=== PATIENT | female | born 1950 | race Caucasian/White ===

== ENCOUNTER → 2017-11-05 10:53 | Outpatient (CLI) | payer MEDICARE, OTHER, SELFPAY ==
[2017-11-05 11:46] LABS: Add Manual Diff / Slide Review NO; Basophils Percent Auto 1.2 % (0-2); Eosinophils Percent Auto 3.2 % (2-4); Hematocrit 40.9 % (36-46); Hemoglobin 13.9 g/dL (12.0-16.0); Lymphocytes Percent Auto 20.2 % (25-40); Mean Corpuscular Hemoglobin 31.8 PG (26-34); Mean Corpuscular Volume 93.7 fL (80-100); Monocytes Percent Auto 9.4 % (3-14); Neutrophils Absolute Auto 3800 /uL (3000-5900); Platelet Count 295 X10^3/uL (150-400); Red Blood Cell Count 4.37 X10^6/uL (4.0-5.2); Red Cell Distribution Width 12.5 % (11.6-14.8); White Blood Cell Count 5.7 X10^3/uL (4.5-11.0)
[2017-11-05 12:01] LABS: Alanine Aminotransferase 33 IU/L (9-52); Albumin 4.5 g/dL (3.5-5.0); Albumin Globulin Ratio 1.5 (1.0-2.8); Alkaline Phosphatase 54 U/L (38-126); Aspartate Aminotransferase 27 IU/L (14-36); BUN Creatinine Ratio 18.6 (6-22); Bilirubin Total 0.7 mg/dL (0.2-1.3); Blood Urea Nitrogen 13 mg/dL (7-17); Calcium 9.7 mg/dL (8.4-10.2); Carbon Dioxide 32 mmol/L (22-32); Chloride 99 mmol/L (98-107); Cholesterol 188 mg/dL (140-199); Estimated Glomerular Filt Rate > 60.0 mL/min (>60); Glucose 91 mg/dL (80-110); HDL Cholesterol 83 mg/dL (40-60); HEMOLYSIS < 15 (0-50); LDL Cholesterol Calculated 80 mg/dL (<100); Potassium 4.8 mmol/L (3.4-5.1); Sodium 138 mmol/L (137-145); Total Protein 7.5 g/dL (6.3-8.2); Triglycerides 127 mg/dL (35-150)
[2017-11-05 12:46] LABS: TSH w/ Reflex to FT4 1.71 uIU/mL (0.47-4.68)
== END ==
PROVIDERS: PCP Family Medicine; Visit Provider Family Medicine
DX: E78.5 Hyperlipidemia, unspecified (principal); E03.9 Hypothyroidism, unspecified; I10 Essential (primary) hypertension
CPT/HCPCS: 36415; 80053; 80061; 84443; 85025

== ENCOUNTER → 2018-08-17 15:46 | Outpatient (CLI) | payer MEDICARE, OTHER, SELFPAY ==
--- NOTE | 2018-08-17 | DI.MG.S_ITS ---
BILATERAL DIGITAL SCREENING MAMMOGRAM 3D/2D WITH CAD: 08/17/2018 CLINICAL: Routine screening. Comparison is made to exams dated: 06/02/2016 mammogram, 07/19/2017 mammogram, and 04/13/2014 mammogram - [facility]. The tissue of both breasts is heterogeneously dense. This may lower the sensitivity of mammography. Current study was also evaluated with a Computer Aided Detection (CAD) system. No significant masses, calcifications, or other findings are seen in either breast. There has been no significant interval change. IMPRESSION: NEGATIVE There is no mammographic evidence of malignancy. A 1 year screening mammogram is recommended. This exam was interpreted at Station ID: [id number]. NOTE: For mammograms, a report in lay terms will be sent to the patient. Approximately 15% of breast malignancies will not be visualized mammographically. In the management of a palpable breast mass, a negative mammogram must not discourage biopsy of a clinically suspicious lesion. Electronically Signed By: Ganesh murray/ilya:08/17/2018 18:48:09 letter sent: Normal Exam ACR BI-RADS Category 1: Negative 3341F
== END ==
PROVIDERS: PCP Family Medicine; Visit Provider Family Medicine
DX: Z12.31 Encounter for screening mammogram for malignant neoplasm of breast (principal)
CPT/HCPCS: 77063; 77067

== ENCOUNTER → 2018-10-05 15:39 | Outpatient (CLI) | payer MEDICARE, OTHER, SELFPAY ==
--- NOTE | 2018-10-05 15:42 | DI.MRI.S_ITS ---
PROCEDURE: MR KNEE RT WO CON INDICATIONS: Right knee pain x6 months TECHNIQUE: Noncontrast sagittal PD fast spin echo and T2 fast spin echo with fat saturation, sagittal 3-D FLASH with fat saturation; coronal T1 spin echo and PD fast spin echo with fat saturation, and axial PD fast spin echo with fat saturation through the knee. COMPARISON: None. FINDINGS: Image quality: Excellent. Menisci: Peripheral displacement of medial meniscus bowing medial collateral ligament is seen. Complex oblique tear involving body and posterior horn of medial meniscus is seen extending to superior articulating surface. There is no evidence of focal lateral meniscal tear. The meniscal root ligaments appear intact. Cruciate ligaments: Sprain/low to moderate grade intrasubstance partial-thickness tear involving anterior cruciate ligament is seen. No full-thickness ACL rupture. PCL is intact. Medial structures: There is moderate grade MCL sprain. The posterior oblique ligament, semimembranosus tendon insertions, oblique popliteal ligament, and meniscocapsular junction appear intact. Visualized portions of the pes anserinus tendons appear normal. No abnormal bursal fluid. Lateral structures: The lateral collateral ligament, long and short heads of the biceps femoris tendon appear intact. The popliteus tendon appears normal; the popliteofibular ligament appears intact. The posterosuperior and anteroinferior popliteomeniscal fascicles appear intact. The arcuate and fabellofibular ligaments appear intact, on either side of the lateral inferior geniculate artery. Iliotibial band appears normal. Anterior structures: The quadriceps and patellar tendons appear intact. Patellar alignment is normal. No femoral trochlear dysplasia or ventral trochlear prominence. No edema in the infrapatellar fat pad. Bones and cartilage: Mild to moderate tricompartmental osteoarthritis and chondromalacia is seen most prominent involving medial femoral tibial compartment. Mild edema involving medial femoral tibial compartment is seen likely represent changes related to osteoarthritis. No fracture or dislocation. Joint space: There is moderate amount of joint fluid. There is suggestion of a 9 mm intra-articular loose body in the anterior aspect of femoral tibial joint anterior to distal ACL insertion. No Durbin's cyst. Normal appearing synovial plicae are incidentally noted. IMPRESSION: 1. 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 Moderate amount of joint effusion. Suggestion of a 9 mm anterior intra-articular loose body. 2. Complex tear involving body and posterior horn of medial meniscus extending to superior articulating surface. No focal lateral meniscal tear. 3. Sprain/low to moderate grade intrasubstance partial-thickness tear involving anterior cruciate ligament. PCL is intact. Low to moderate grade MCL sprain. Dictated by: Nelson Bird M.D. on 10/05/2018 at 17:17 Approved by: Nelson Bird M.D. on 10/05/2018 at 17:32
== END ==
PROVIDERS: PCP Family Medicine; Visit Provider Nurse Practitioner
DX: M25.561 Pain in right knee (principal); M17.11 Unilateral primary osteoarthritis, right knee; M25.461 Effusion, right knee; S83.231A Complex tear of medial meniscus, current injury, right knee, initial encounter; S83.511A Sprain of anterior cruciate ligament of right knee, initial encounter; S83.411A Sprain of medial collateral ligament of right knee, initial encounter
CPT/HCPCS: 73721

== ENCOUNTER → 2019-01-16 11:11 | Outpatient (CLI) | payer MEDICARE, OTHER, SELFPAY ==
[2019-01-16 12:42] LABS: Thyroid Stimulating Hormone 3.59 uIU/mL (0.47-4.68)
== END ==
PROVIDERS: Family Provider Family Medicine; PCP Family Medicine; Visit Provider Family Medicine
DX: E03.9 Hypothyroidism, unspecified (principal)
CPT/HCPCS: 36415; 84443

== ENCOUNTER → 2019-02-09 09:51 | Outpatient (CLI) | payer MEDICARE, OTHER, SELFPAY ==
[2019-02-09 11:35] LABS: Alanine Aminotransferase 29 IU/L (<35); Albumin 4.5 g/dL (3.5-5.0); Albumin Globulin Ratio 1.6 (1.0-2.8); Alkaline Phosphatase 53 U/L (38-126); Aspartate Aminotransferase 31 IU/L (14-36); BUN Creatinine Ratio 21.4 (6-22); Bilirubin Total 0.7 mg/dL (0.2-1.3); Blood Urea Nitrogen 15 mg/dL (7-17); Calcium 9.7 mg/dL (8.4-10.2); Carbon Dioxide 30 mmol/L (22-32); Chloride 100 mmol/L (98-107); Cholesterol 186 mg/dL (140-199); Estimated Glomerular Filt Rate > 60.0 mL/min (>60); Globulin 2.8 g/dL (1.7-4.1); Glucose 84 mg/dL (80-110); HDL Cholesterol 84 mg/dL (40-60); HEMOLYSIS < 15 (0-50); LDL Cholesterol Calculated 88 mg/dL (<100); Potassium 4.9 mmol/L (3.4-5.1); Sodium 136 mmol/L (137-145); Total Protein 7.3 g/dL (6.3-8.2); Triglycerides 68 mg/dL (35-150)
[2019-02-09 13:01] LABS: Creatinine Urine Random 52.8 mg/dL
[2019-02-09 13:06] LABS: Microalbumi Creatinin Ratio Ur 11.3 ug/mg CR (<30); Microalbumin Urine Random < 0.6 mg/dL (0-1.6)
[2019-02-11 14:37] LABS: Fecal Immunochemical Test NOT DETECTED (NOT DETECTED)
== END ==
PROVIDERS: PCP Family Medicine; Visit Provider Family Medicine
DX: Z12.11 Encounter for screening for malignant neoplasm of colon (principal); I10 Essential (primary) hypertension; E78.5 Hyperlipidemia, unspecified
CPT/HCPCS: 36415; 80053; 80061; 82043; 82274; 82570

== ENCOUNTER → 2020-01-03 12:20 | Outpatient (CLI) | payer MEDICARE, OTHER, SELFPAY ==
--- NOTE | 2020-01-03 | DI.MG.S_ITS ---
BILATERAL DIGITAL SCREENING MAMMOGRAM 3D/2D WITH CAD: 01/03/2020 CLINICAL: Routine screening. Comparison is made to exams dated: 08/17/2018 mammogram, 07/19/2017 mammogram, and 06/02/2016 mammogram - [facility]. There are scattered fibroglandular elements in both breasts. Current study was also evaluated with a Computer Aided Detection (CAD) system. No significant masses, calcifications, or other findings are seen in either breast. There has been no significant interval change. IMPRESSION: NEGATIVE There is no mammographic evidence of malignancy. A 1 year screening mammogram is recommended. This exam was interpreted at Station ID: [id number]. NOTE: For mammograms, a report in lay terms will be sent to the patient. Approximately 15% of breast malignancies will not be visualized mammographically. In the management of a palpable breast mass, a negative mammogram must not discourage biopsy of a clinically suspicious lesion. Electronically Signed By: Daryl ulloa/ilya:01/03/2020 14:15:37 letter sent: Normal Exam ACR BI-RADS Category 1: Negative 3341F
== END ==
PROVIDERS: PCP Family Medicine; Referring Provider Family Medicine; Visit Provider Family Medicine
DX: Z12.31 Encounter for screening mammogram for malignant neoplasm of breast (principal)
CPT/HCPCS: 77063; 77067

== ENCOUNTER → 2020-02-13 08:06 | Outpatient (CLI) | payer MEDICARE, OTHER, SELFPAY ==
[2020-02-13 09:48] LABS: TSH w/ Reflex to FT4 4.38 uIU/mL (0.47-4.68)
== END ==
PROVIDERS: PCP Family Medicine; Referring Provider Family Medicine; Visit Provider Family Medicine
DX: E03.9 Hypothyroidism, unspecified (principal)
CPT/HCPCS: 36415; 84443

== ENCOUNTER → 2020-03-07 13:02 | Outpatient (CLI) | payer MEDICARE, OTHER, SELFPAY ==
--- NOTE | 2020-03-07 13:05 | DI.RAD.S_ITS ---
PROCEDURE: XR FINGER LT MIN 2V INDICATIONS: significant nodular growth 5th finger PIP joint TECHNIQUE: AP hand, 2 views of the 5th finger(s) acquired. COMPARISON: None. FINDINGS: Bones: No fractures or dislocations. No suspicious bony lesions. Severe degeneration of the proximal 5th interphalangeal joint. Periarticular erosion and soft tissue swelling are present at the 5th proximal interphalangeal joint. There is also severe 1st carpometacarpal joint and 1st interphalangeal joint degeneration, and [id number] degeneration of multiple interphalangeal joints. Soft tissues: No suspicious soft tissue calcifications. IMPRESSION: 1. Bony erosion and periarticular soft tissue swelling at the 5th proximal interphalangeal joint suggesting inflammatory arthritis such as erosive OA. Dictated by: Mark Fernando M.D. on 03/07/2020 at 15:02 Approved by: Mark Fernando M.D. on 03/07/2020 at 15:05
== END ==
PROVIDERS: PCP Family Medicine; Referring Provider Family Medicine; Visit Provider Family Medicine
DX: M18.12 Unilateral primary osteoarthritis of first carpometacarpal joint, left hand (principal); M19.042 Primary osteoarthritis, left hand; M25.649 Stiffness of unspecified hand, not elsewhere classified; M79.89 Other specified soft tissue disorders; M85.842 Other specified disorders of bone density and structure, left hand
CPT/HCPCS: 73140

== ENCOUNTER → 2020-03-13 12:30 | Outpatient (CLI) | payer MEDICARE, OTHER, SELFPAY ==
[2020-03-13 13:43] LABS: C-Reactive Protein Quant < 0.5 mg/dL (<1.0); Rheumatoid Factor < 8.6 IU/mL (<12.0)
[2020-03-13 13:55] LABS: Erythrocyte Sedimentation Rate 10 MM/HR (0-20)
== END ==
PROVIDERS: PCP Family Medicine; Referring Provider Family Medicine; Visit Provider Family Medicine
DX: M15.4 Erosive (osteo)arthritis (principal)
CPT/HCPCS: 36415; 85651; 86140; 86430

== ENCOUNTER → 2021-02-01 13:23 | Outpatient (CLI) | payer MEDICARE, OTHER, SELFPAY ==
--- NOTE | 2021-02-01 | DI.MG.S_ITS ---
BILATERAL DIGITAL SCREENING MAMMOGRAM 3D/2D WITH CAD: 02/01/2021 CLINICAL: Routine screening. Comparison is made to exams dated: 01/03/2020 mammogram, 08/17/2018 mammogram, 07/19/2017 mammogram, and 06/02/2016 mammogram - [facility]. There are scattered fibroglandular elements in both breasts. Current study was also evaluated with a Computer Aided Detection (CAD) system. No significant masses, calcifications, or other findings are seen in either breast. There has been no significant interval change. IMPRESSION: NEGATIVE There is no mammographic evidence of malignancy. A 1 year screening mammogram is recommended. This exam was interpreted at Station ID: [id number]. NOTE: For mammograms, a report in lay terms will be sent to the patient. Approximately 15% of breast malignancies will not be visualized mammographically. In the management of a palpable breast mass, a negative mammogram must not discourage biopsy of a clinically suspicious lesion. Electronically Signed By: Tata cha/ilya:02/03/2021 10:58:51 letter sent: Normal Exam ACR BI-RADS Category 1: Negative 3341F
== END ==
PROVIDERS: PCP Family Medicine; Referring Provider Family Medicine; Visit Provider Family Medicine
DX: Z12.31 Encounter for screening mammogram for malignant neoplasm of breast (principal)
CPT/HCPCS: 77063; 77067

== ENCOUNTER → 2021-06-10 12:54 | Outpatient (CLI) | payer MEDICARE, OTHER, SELFPAY ==
[2021-06-10 14:06] LABS: Add Manual Diff / Slide Review NO; Basophils Absolute Auto 100 /uL (0-100); Eosinophils Absolute Auto 200 /uL (0-450); Hemoglobin 13.6 g/dL (12.0-16.0); Lymphocytes Absolute Auto 1100 /uL (1100-4500); Mean Corpuscular Hemoglobin 31.5 PG (26-34); Mean Corpuscular Volume 92.6 fL (80-100); Monocytes Absolute Auto 600 /uL (0-900); Monocytes Percent Auto 10.7 % (3-14); Neutrophils Absolute Auto 3400 /uL (1500-7000); Neutrophils Percent Auto 63.3 % (50-75); Platelet Count 262 X10^3/uL (150-400); Red Blood Cell Count 4.32 X10^6/uL (4.0-5.2); Red Cell Distribution Width 13.6 % (11.6-14.8); White Blood Cell Count 5.3 X10^3/uL (4.5-11.0)
[2021-06-10 14:40] LABS: Alanine Aminotransferase 23 IU/L (<35); Albumin 4.7 g/dL (3.5-5.0); Alkaline Phosphatase 54 U/L (38-126); Aspartate Aminotransferase 27 IU/L (14-36); BUN Creatinine Ratio 16.5 (6-22); Bilirubin Total 0.6 mg/dL (0.2-1.3); Blood Urea Nitrogen 13 mg/dL (7-17); Calcium 9.8 mg/dL (8.4-10.2); Carbon Dioxide 28 mmol/L (22-32); Chloride 101 mmol/L (98-107); Cholesterol 205 mg/dL (140-199); Estimated Glomerular Filt Rate > 60.0 mL/min (>60); Globulin 2.4 g/dL (1.7-4.1); Glucose 87 mg/dL (80-110); HDL Cholesterol 110 mg/dL (40-60); HEMOLYSIS < 15 (0-50); LDL Cholesterol Calculated 78 mg/dL (<100); Potassium 4.5 mmol/L (3.4-5.1); Sodium 136 mmol/L (137-145); Total Protein 7.1 g/dL (6.3-8.2); Triglycerides 86 mg/dL (35-150)
[2021-06-10 15:09] LABS: Thyroid Stimulating Hormone 2.14 uIU/mL (0.47-4.68)
[2021-06-10 15:34] LABS: Creatinine Urine Random 33.9 mg/dL
[2021-06-10 15:39] LABS: Microalbumin Urine Random < 0.6 mg/dL (0-1.6)
== END ==
PROVIDERS: PCP Family Medicine; Referring Provider Family Medicine; Visit Provider Family Medicine
DX: E03.9 Hypothyroidism, unspecified (principal); E78.5 Hyperlipidemia, unspecified; E78.2 Mixed hyperlipidemia; I10 Essential (primary) hypertension
CPT/HCPCS: 36415; 80053; 80061; 82043; 82570; 84443; 85025

== ENCOUNTER → 2021-06-11 14:49 | Outpatient (CLI) | payer MEDICARE, OTHER, SELFPAY ==
[2021-06-12 14:02] LABS: Fecal Immunochemical Test Negative (Negative)
== END ==
PROVIDERS: PCP Family Medicine; Referring Provider Family Medicine; Visit Provider Family Medicine
DX: Z12.11 Encounter for screening for malignant neoplasm of colon (principal)
CPT/HCPCS: 82274

== ENCOUNTER → 2022-02-03 13:51 | Outpatient (CLI) | payer MEDICARE, OTHER, SELFPAY ==
--- NOTE | 2022-02-03 | DI.MG.S_ITS ---
BILATERAL DIGITAL SCREENING MAMMOGRAM 3D/2D WITH CAD: 02/03/2022 CLINICAL: Routine screening. Comparison is made to exams dated: 02/01/2021 mammogram, 01/03/2020 mammogram, and 08/17/2018 mammogram - [facility]. There are scattered areas of fibroglandular density in both breasts (category b / 25%-50% glandular tissue). Current study was also evaluated with a Computer Aided Detection (CAD) system. No significant masses, calcifications, or other findings are seen in either breast. There has been no significant interval change. IMPRESSION: NEGATIVE There is no mammographic evidence of malignancy. A 1 year screening mammogram is recommended. Based on the Tyrer Cuzick model (a risk assessment model) the patient's lifetime risk is 5.9% and her 10 year risk is 4.8%. According to the ACR, ACS, and NCCN guidelines, an annual breast MRI exam along with mammogram is recommended if the patient's lifetime risk is 20% or greater. This exam was interpreted at Station ID: [id number]. NOTE: For mammograms, a report in lay terms will be sent to the patient. Approximately 15% of breast malignancies will not be visualized mammographically. In the management of a palpable breast mass, a negative mammogram must not discourage biopsy of a clinically suspicious lesion. Electronically Signed By: Tata cha/ilya:02/03/2022 16:44:52 letter sent: Normal Exam ACR BI-RADS Category 1: Negative 3341F
== END ==
PROVIDERS: PCP Family Medicine; Referring Provider Family Medicine; Visit Provider Family Medicine
DX: Z12.31 Encounter for screening mammogram for malignant neoplasm of breast (principal)
CPT/HCPCS: 77063; 77067

== ENCOUNTER → 2022-06-06 09:48 | Outpatient (CLI) | payer MEDICARE, OTHER, SELFPAY ==
[2022-06-06 10:20] LABS: Add Manual Diff / Slide Review NO; Basophils Absolute Auto 100 /uL (0-100); Basophils Percent Auto 1.1 % (0-2); Eosinophils Absolute Auto 200 /uL (0-450); Eosinophils Percent Auto 3.9 % (2-4); Hematocrit 40.4 % (36-46); Hemoglobin 13.7 g/dL (12.0-16.0); Lymphocytes Absolute Auto 1000 /uL (1100-4500); Lymphocytes Percent Auto 19.7 % (25-40); Mean Corpuscular Hemoglobin 31.1 PG (26-34); Mean Corpuscular Volume 91.4 fL (80-100); Monocytes Absolute Auto 600 /uL (0-900); Neutrophils Absolute Auto 3400 /uL (1500-7000); Neutrophils Percent Auto 64.3 % (50-75); Platelet Count 266 X10^3/uL (150-400); Red Blood Cell Count 4.43 X10^6/uL (4.0-5.2); Red Cell Distribution Width 12.5 % (11.6-14.8); White Blood Cell Count 5.3 X10^3/uL (4.5-11.0)
[2022-06-06 10:34] LABS: Alanine Aminotransferase 24 IU/L (<35); Albumin 4.5 g/dL (3.5-5.0); Albumin Globulin Ratio 1.6 (1.0-2.8); Alkaline Phosphatase 63 U/L (38-126); Aspartate Aminotransferase 25 IU/L (14-36); BUN Creatinine Ratio 19.5 (6-22); Bilirubin Total 0.5 mg/dL (0.2-1.3); Blood Urea Nitrogen 15 mg/dL (7-17); Carbon Dioxide 28 mmol/L (22-32); Chloride 100 mmol/L (98-107); Cholesterol 190 mg/dL (140-199); Estimated Glomerular Filt Rate > 60 mL/min (>60); Globulin 2.8 g/dL (1.7-4.1); Glucose 89 mg/dL (80-110); HDL Cholesterol 102 mg/dL (40-60); HEMOLYSIS < 15 (0-50); LDL Cholesterol Calculated 73 mg/dL (<100); Potassium 4.5 mmol/L (3.4-5.1); Sodium 136 mmol/L (137-145); Total Protein 7.3 g/dL (6.3-8.2); Triglycerides 77 mg/dL (35-150)
[2022-06-06 11:13] LABS: TSH w/ Reflex to FT4 1.48 uIU/mL (0.47-4.68)
[2022-06-06 11:15] LABS: Creatinine Urine Random 48.9 mg/dL
[2022-06-06 11:21] LABS: Microalbumin Urine Random < 0.6 mg/dL (0-1.6)
== END ==
PROVIDERS: PCP Family Medicine; Referring Provider Family Medicine; Visit Provider Family Medicine
DX: E03.9 Hypothyroidism, unspecified (principal); E78.5 Hyperlipidemia, unspecified; I10 Essential (primary) hypertension
CPT/HCPCS: 36415; 80053; 80061; 82043; 82570; 84443; 85025

== ENCOUNTER → 2022-06-13 11:41 | Outpatient (CLI) | payer MEDICARE, OTHER, SELFPAY ==
[2022-06-16 17:38] LABS: Fecal Immunochemical Test Negative (Negative)
== END ==
PROVIDERS: PCP Family Medicine; Referring Provider Family Medicine; Visit Provider Family Medicine
DX: Z12.11 Encounter for screening for malignant neoplasm of colon (principal)
CPT/HCPCS: 82274

== ENCOUNTER → 2023-03-23 14:48 | Outpatient (CLI) | payer MEDICARE, OTHER, SELFPAY ==
--- NOTE | 2023-03-23 14:50 | DI.MG.S_ITS ---
BILATERAL DIGITAL SCREENING MAMMOGRAM 3D/2D WITH CAD: 03/23/2023 CLINICAL: Routine screening. Family history of breast cancer. Comparison is made to exams dated: 02/03/2022 mammogram, 02/01/2021 mammogram, and 01/03/2020 mammogram - [facility]. There are scattered areas of fibroglandular density in both breasts (category b / 25%-50% glandular tissue). Current study was also evaluated with a Computer Aided Detection (CAD) system. No significant masses, calcifications, or other findings are seen in either breast. There has been no significant interval change. IMPRESSION: NEGATIVE There is no mammographic evidence of malignancy. A 1 year screening mammogram is recommended. Based on the Tyrer Cuzick model (a risk assessment model) the patient's lifetime risk is 5.5% and her 10 year risk is 5.0%. According to the ACR, ACS, and NCCN guidelines, an annual breast MRI exam along with mammogram is recommended if the patient's lifetime risk is 20% or greater. This exam was interpreted at Station ID: [id number]. NOTE: For mammograms, a report in lay terms will be sent to the patient. Approximately 15% of breast malignancies will not be visualized mammographically. In the management of a palpable breast mass, a negative mammogram must not discourage biopsy of a clinically suspicious lesion. Electronically Signed By: Laura farrell/ilya:03/24/2023 17:03:17 letter sent: Normal Exam ACR BI-RADS Category 1: Negative 3341F
== END ==
PROVIDERS: PCP Family Medicine; Referring Provider Family Medicine; Visit Provider Family Medicine
DX: Z12.31 Encounter for screening mammogram for malignant neoplasm of breast (principal); Z80.3 Family history of malignant neoplasm of breast
CPT/HCPCS: 77063; 77067

== ENCOUNTER → 2023-06-01 14:18 | Outpatient (CLI) | payer MEDICARE, OTHER, SELFPAY ==
[2023-06-02 07:00] LABS: Fecal Immunochemical Test Negative (Negative)
== END ==
LOC: LAB 14:19
PROVIDERS: PCP Family Medicine; Referring Provider Family Medicine; Visit Provider Family Medicine
DX: Z12.11 Encounter for screening for malignant neoplasm of colon (principal)
CPT/HCPCS: 82274

== ENCOUNTER → 2023-06-16 10:47 | Outpatient (CLI) | payer MEDICARE, OTHER, SELFPAY ==
--- NOTE | 2023-06-16 10:48 | DI.RAD.S_ITS ---
PROCEDURE: XR KNEE LT 3V INDICATIONS: left knee pain TECHNIQUE: 3 views of the knee were acquired. COMPARISON: None. FINDINGS: Bones: No fractures or dislocations. No suspicious bony lesions. Moderate lateral compartment joint space narrowing and mild lateral patellofemoral compartment joint space narrowing and osteophytosis. Soft tissues: No joint effusion. No suspicious soft tissue calcifications. IMPRESSION: No acute bony abnormality or significant effusion. Moderate lateral femorotibial and mild patellofemoral compartment osteoarthrosis Approved by: Helen Fountain M.D.,Ph.D. on 06/16/2023 at 14:04
[2023-06-16 14:42] LABS: Thyroid Stimulating Hormone 1.26 uIU/mL (0.47-4.68)
[2023-06-16 16:00] LABS: Alanine Aminotransferase 28 IU/L (<35); Albumin 4.3 g/dL (3.5-5.0); Albumin Globulin Ratio 1.7 (1.0-2.8); Alkaline Phosphatase 59 U/L (38-126); Aspartate Aminotransferase 27 IU/L (14-36); BUN Creatinine Ratio 16.2 (6-22); Bilirubin Total 0.6 mg/dL (0.2-1.3); Blood Urea Nitrogen 11 mg/dL (7-17); Calcium 9.8 mg/dL (8.4-10.2); Carbon Dioxide 28 mmol/L (22-32); Chloride 102 mmol/L (98-107); Cholesterol 174 mg/dL (140-199); Estimated Glomerular Filt Rate > 60 mL/min (>60); Globulin 2.5 g/dL (1.7-4.1); Glucose 80 mg/dL (80-110); HDL Cholesterol 97 mg/dL (40-60); HEMOLYSIS < 15 (0-50); LDL Cholesterol Calculated 62 mg/dL (<100); Potassium 4.6 mmol/L (3.4-5.1); Sodium 135 mmol/L (137-145); Total Protein 6.8 g/dL (6.3-8.2); Triglycerides 73 mg/dL (35-150)
[2023-06-16 16:47] LABS: Creatinine Urine Random 21.9 mg/dL
[2023-06-16 16:53] LABS: Microalbumin Urine Random < 0.6 mg/dL (0-1.6)
[2023-06-17 22:58] LABS: Hep C Virus Ab w/Reflex Quant NEGATIVE s/c (NEGATIVE)
== END ==
PROVIDERS: PCP Family Medicine; Referring Provider Family Medicine; Visit Provider Family Medicine
DX: M17.12 Unilateral primary osteoarthritis, left knee (principal); M25.562 Pain in left knee; I10 Essential (primary) hypertension; E03.9 Hypothyroidism, unspecified; Z13.9 Encounter for screening, unspecified
CPT/HCPCS: 36415; 73562; 80053; 80061; 82043; 82570; 84443; 86803

== ENCOUNTER → 2024-04-06 10:55 | Outpatient (CLI) | payer MEDICARE, OTHER, SELFPAY ==
--- NOTE | 2024-04-06 10:56 | DI.MG.S_ITS ---
BILATERAL DIGITAL SCREENING MAMMOGRAM 3D/2D WITH CAD: 04/06/2024 CLINICAL: Routine screening. Comparison is made to exams dated: 03/23/2023 mammogram, 02/03/2022 mammogram, 02/01/2021 mammogram, and 01/03/2020 mammogram - [facility]. There are scattered areas of fibroglandular density (category b / 25%-50% glandular tissue). Current study was also evaluated with a Computer Aided Detection (CAD) system. No significant masses, calcifications, or other findings are seen in either breast. There has been no significant interval change. IMPRESSION: NEGATIVE There is no mammographic evidence of malignancy. A 1 year screening mammogram is recommended. Based on the Tyrer Cuzick model (a risk assessment model) the patient's lifetime risk is 5.1% and her 10 year risk is 5.1%. According to the ACR, ACS, and NCCN guidelines, an annual breast MRI exam along with mammogram is recommended if the patient's lifetime risk is 20% or greater. This exam was interpreted at Station ID: [id number]. NOTE: For mammograms, a report in lay terms will be sent to the patient. Approximately 15% of breast malignancies will not be visualized mammographically. In the management of a palpable breast mass, a negative mammogram must not discourage biopsy of a clinically suspicious lesion. Electronically Signed By: Otilio rust/ilya:04/06/2024 18:03:46 letter sent: Normal Exam ACR BI-RADS Category 1: Negative
== END ==
LOC: MAMMO 10:55
PROVIDERS: PCP Family Medicine; Referring Provider Family Medicine; Visit Provider Family Medicine
DX: Z12.31 Encounter for screening mammogram for malignant neoplasm of breast (principal)
CPT/HCPCS: 77063; 77067

== ENCOUNTER → 2024-05-05 12:24 | Outpatient (CLI) | payer MEDICARE, OTHER, SELFPAY ==
[2024-05-05 15:27] LABS: Alanine Aminotransferase 27 IU/L (<35); Albumin 4.7 g/dL (3.5-5.0); Albumin Globulin Ratio 1.9 (1.0-2.8); Alkaline Phosphatase 64 U/L (38-126); Aspartate Aminotransferase 30 IU/L (14-36); BUN Creatinine Ratio 12.9 (6-22); Bilirubin Total 0.6 mg/dL (0.2-1.3); Blood Urea Nitrogen 11 mg/dL (7-17); Calcium 10.1 mg/dL (8.4-10.2); Carbon Dioxide 28 mmol/L (22-32); Chloride 98 mmol/L (98-107); Cholesterol 210 mg/dL (140-199); Estimated Glomerular Filt Rate > 60 mL/min (>60); Globulin 2.5 g/dL (1.7-4.1); Glucose 82 mg/dL (80-110); HDL Cholesterol 104 mg/dL (40-60); HEMOLYSIS < 15 (0-50); LDL Cholesterol Calculated 82 mg/dL (<100); Potassium 5.3 mmol/L (3.4-5.1); Sodium 134 mmol/L (137-145); Total Protein 7.2 g/dL (6.3-8.2); Triglycerides 120 mg/dL (35-150)
[2024-05-05 19:46] LABS: Creatinine Urine Random 23.54 mg/dL
[2024-05-05 19:55] LABS: Microalbumin Urine Random < 0.6 mg/dL (0-1.6)
== END ==
PROVIDERS: PCP Family Medicine; Referring Provider Family Medicine; Visit Provider Family Medicine
DX: E78.2 Mixed hyperlipidemia (principal); I10 Essential (primary) hypertension
CPT/HCPCS: 36415; 80053; 80061; 82043; 82570

== ENCOUNTER → 2024-06-09 11:27 | Outpatient (CLI) | payer MEDICARE, OTHER, SELFPAY ==
[2024-06-09 12:45] LABS: BUN Creatinine Ratio 15.2 (6-22); Blood Urea Nitrogen 12 mg/dL (7-17); Calcium 9.9 mg/dL (8.4-10.2); Carbon Dioxide 27 mmol/L (22-32); Chloride 95 mmol/L (98-107); Estimated Glomerular Filt Rate > 60 mL/min (>60); Glucose 86 mg/dL (80-110); HEMOLYSIS < 15 (0-50); Potassium 4.4 mmol/L (3.4-5.1); Sodium 131 mmol/L (137-145)
== END ==
PROVIDERS: PCP Family Medicine; Referring Provider Family Medicine; Visit Provider Family Medicine
DX: E87.5 Hyperkalemia (principal)
CPT/HCPCS: 36415; 80048

== ENCOUNTER → 2024-06-24 13:22 | Outpatient (CLI) | payer MEDICARE, OTHER, SELFPAY ==
[2024-06-26 12:40] LABS: Fecal Immunochemical Test Negative (Negative)
== END ==
PROVIDERS: PCP Family Medicine; Referring Provider Family Medicine; Visit Provider Family Medicine
DX: Z12.11 Encounter for screening for malignant neoplasm of colon (principal)
CPT/HCPCS: 82274

== ENCOUNTER 2024-09-19 13:00 | Outpatient (RCR) | payer MEDICARE, OTHER, SELFPAY ==
--- NOTE | 2024-06-29 15:14 | PT.OIE ---
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) Foot pain (2012) Fracture, foot (03/2004) Fractures (08/06/11) GERD (gastroesophageal reflux disease) Graves' disease (1993) Hayfever (1949) Hypertension (09/24/03) Hyperthyroidism (1993) IBS (irritable bowel syndrome) Measles Mumps Osteoarthritis (2005) Osteopenia (10/28/06) Past Surgical History (Last Updated 01/25/18 @ 12:01 by Christianne Artis) Anesthesia History of foot surgery (02/17/13) Status post tonsillectomy and adenoidectomy (1951) Visit Care Team Role Provider Type Keila Moreno MD Attending Provider Physician Family Provider Primary Care Provider Referring Provider Specialty: [facility] Address: [address] [place] [address] Email: [email or web address] Physical Therapy Initial Evaluation PT-OP-A Visit Information Start: 06/28/24 18:59 Freq: Status: Active Protocol: Document 06/29/24 13:03 [facility] (Rec: 06/29/24 15:00 [facility] [id number]) Out-Patient Physical Therapy Visit Information Visit Information Visit Type Initial Evaluation Visit Start Time 13:03 Visit Stop Time 13:48 Visit Number 1 Number of COMMERCIAL ACCOUNT OFFICER Visits 0 PT-OP-B Current Condition Start: 06/28/24 18:59 Freq: Status: Active Protocol: Document 06/29/24 13:03 [facility] (Rec: 06/29/24 15:00 [facility] [id number]) Current Condition History of Current Condition Onset Date about 1 year Current Complaints L knee pain History of Current Condition Pt loves to walk and typically walks 3 miles prior to this. mostly flat. It has been 2-3 months since he did. she has an orhtotic that helped but didn't fully help. She has tried hills and that really hurts. She tries to stay active by parking further away but no regimented walks. She can't do hills right now. When first stand up, after sitting for a while then L knee is uncomfortable. 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 has osteoporosis. Has a lot of metal still in L ankle and bones healed well and she rarely had pain (occ sharp). Her L big toe has very limited movement. 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 typically does yoga but stopped because so many exercises that weren't comfortable on L foot. Does functional fitness 2x/week for 1 hour but hasn't gone for the past 2-3 weeks because of her L knee. UP stairs is okay but coming down is hard. no specific onset. [place] did [place] in [place] for her elephant seal protection event along w/longer distance and it flared it up. She did this a couple days and had to stop because she was hurting. Pt notes occasionally has B hip pain too Treatment Goals Patient/Caregiver Goals gets some exercises to help pain, return to walking , return to exercise class, yoga PT-OP-C Subjective Start: 06/28/24 18:59 Freq: Status: Active Protocol: Document 06/29/24 13:03 [facility] (Rec: 06/29/24 15:00 [facility] [id number]) OP-PT Pain Assessment Location L knee Pain Location Details distal thigh to proximal tibia (all around knee) Frequency Frequent Other Pain Aggravating Factors stairs down, walking hills, standing up after sit extended , at night Other Pain Alleviating Factors tylenol PT-OP-G Mobility & Gait Start: 06/28/24 18:59 Freq: Status: Active Protocol: Document 06/29/24 13:03 [facility] (Rec: 06/29/24 15:00 [facility] [id number]) OP Gait Assessment Comments Gait Comments harder impact on LLE, lat lean over LLE ,dec LLE push off PT-OP-J Posture/Palpation/Skin Start: 06/28/24 18:59 Freq: Status: Active Protocol: Document 06/29/24 13:03 [facility] (Rec: 06/29/24 15:00 [facility] [id number]) Posture Evaluation Comments Posture Comments IR L femur and ER tibia, R iliac crest higher and R greater trochanter higher PT-OP-K Range of Motion Start: 06/28/24 18:59 Freq: Status: Active Protocol: Document 06/29/24 13:03 [facility] (Rec: 06/29/24 15:00 [facility] [id number]) Knee Goniometric Range of Motion Knee Left Flexion Active (degrees) 128 Extension Active (degrees) 0 PT-OP-L Special Tests Start: 06/28/24 18:59 Freq: Status: Active Protocol: Document 06/29/24 13:03 [facility] (Rec: 06/29/24 15:00 [facility] [id number]) Special Tests Knee Special Tests ligamentous Comments ACL, PCL, LCL, MCL neg jt jackson Comments tender lat Ramiro Test Comments neg PT-OP-M Strength Start: 06/28/24 18:59 Freq: Status: Active Protocol: Document 06/29/24 13:03 [facility] (Rec: 06/29/24 15:00 [facility] [id number]) Hip Strength Hip Manual Muscle Testing Right Flexion (L2) 3+ Fair+ Extension (S1) 3+ Fair+ Abduction 4- Good- Adduction 4- Good- External Rotation 3+ Fair+ Internal Rotation 4+ Good+ Left Flexion (L2) 3+ Fair+ Extension (S1) 3+ Fair+ Abduction 3+ Fair+ Adduction 3+ Fair+ External Rotation 3+ Fair+ Internal Rotation 4- Good- Knee Strength Knee Manual Muscle Testing Right Flexion (S2) 5 Normal Extension (L3) 5 Normal Left Flexion (S2) 4 Good Extension (L3) 4 Good Ankle/Foot Strength Ankle and Foot Manual Muscle Testing Right Dorsiflexion (L4) 5 Normal Plantarflexion (S1) 5 Normal Left Dorsiflexion (L4) 4+ Good+ Plantarflexion (S1) 4+ Good+ PT-OP-Q Treatments Start: 06/28/24 18:59 Freq: Status: Active Protocol: Document 06/29/24 13:03 [facility] (Rec: 06/29/24 15:00 [facility] [id number]) Self-Care/Home Management Treatment Education Other Education 8 min: edu that leg length and hip and core weakness may be contributing to pain in knee also. Edu to ice as needed. Pay attention and stop exercises in class that cause pain. PT-OP-T Assessment and Plan Start: 06/28/24 18:59 Freq: Status: Active Protocol: Document 06/29/24 13:03 [facility] (Rec: 06/29/24 15:00 [facility] [id number]) Physical Therapy Assessment Rehab Potential Rehabilitation Potential Good Evaluation Complexity Number of Personal Factors/Comorbidities 3 or More Number of Body Systems Impaired 4 or More Clinical Presentation at Evaluation Evolving Impairments Impairments Activity Tolerance,Balance, Functional Activities, Functional Mobility,Gait,Pain, Posture,ROM,Soft Tissue Mobility,Strength,Transfers Goals strength Short Term Goal (STG) Pt will be indep w/HEP STG Duration 07/29 Prison Goal (LTG) Pt will score at least 4+/5 on all BLE MMT to show improved stability and mobility. LTG Duration 09/07 walking Short Term Goal (STG) Pt will be able to return to 1 mile walks at least every other day STG Duration 07/29 Prison Goal (LTG) Pt will be able to return to 3 mile walks at least every other day LTG Duration 09/07 activities Geothermal Operations Engineer Goal (LTG) Pt will be able to walk hills and be able to go down stairs reciprocally w/o inc pain greater than 1/10. LTG Duration 09/07 Assessment Summary Assessment Pt presents w/L knee pain that is limiting her ability to stay as mobile as she'd like ( do yoga, exercise class, and walk). She has pain down stairs and w/hills and has mild to moderate OA. She does have weakness of L>R LE and is overall limited with her balance and stability likely related to her knee pain. She would benefit from skilled PT to work on strength, mobility and decreasing her pain. Physical Therapy Plan Frequency and Duration Frequency of Treatment 2x/Week Duration of treatment (weeks) 10 Plan of Care Start Date 06/29/24 Plan of Care End Date 09/07/24 Therapeutic Interventions Therapeutic Interventions Balance Training,Gait Training ,Home Exercise Program,Joint Mobilizations,Manual Therapy, Neuromuscular Re-education, Patient/Caregiver Education, Self-Care/Home Management,Soft Tissue Mobilization,Taping, Therapeutic Activities, Therapeutic Exercises Modalities Cold Pack/Ice Massage,Electric Stimulation,Hot Packs, Infrared Therapy,Ultrasound Next Visit Focus/Plan Next Note Type Treatment Note Next Visit Plan sidesteps, sit to stands or squats, bridge, balance exercises, manual for knee tracking.
--- NOTE | 2024-06-29 15:15 | PT.OPPOC ---
Physical, Occupational & Speech Therapy At [facility] Current Diagnoses Pain in left knee (06/29/24) Visit Care Team Role Provider Type Keila Moreno MD Attending Provider Physician Family Provider Primary Care Provider Referring Provider Specialty: Family Practice Address: [address] [place] [address], [facility] [place], [address] Email: [email or web address] Plan Of Care PT-OP-B Current Condition Start: 06/28/24 18:59 Freq: Status: Active Protocol: Document 06/29/24 13:03 [facility] (Rec: 06/29/24 15:00 [facility] [id number]) Current Condition History of Current Condition Onset Date about 1 year Current Complaints L knee pain History of Current Condition Pt loves to walk and typically walks 3 miles prior to this. mostly flat. It has been 2-3 months since he did. she has an orhtotic that helped but didn't fully help. She has tried hills and that really hurts. She tries to stay active by parking further away but no regimented walks. She can't do hills right now. When first stand up, after sitting for a while then L knee is uncomfortable. 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 has osteoporosis. Has a lot of metal still in L ankle and bones healed well and she rarely had pain (occ sharp). Her L big toe has very limited movement. 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 typically does yoga but stopped because so many exercises that weren't comfortable on L foot. Does functional fitness 2x/week for 1 hour but hasn't gone for the past 2-3 weeks because of her L knee. UP stairs is okay but coming down is hard. no specific onset. She [place] in [place] for her elephant seal protection event along w/longer distance and it flared it up. She did this a couple days and had to stop because she was hurting. Pt notes occasionally has B hip pain too Treatment Goals Patient/Caregiver Goals gets some exercises to help pain, return to walking , return to exercise class, yoga PT-OP-T Assessment and Plan Start: 06/28/24 18:59 Freq: Status: Active Protocol: Document 06/29/24 13:03 [facility] (Rec: 06/29/24 15:00 [facility] [id number]) Physical Therapy Assessment Rehab Potential Rehabilitation Potential Good Evaluation Complexity Number of Personal Factors/Comorbidities 3 or More Number of Body Systems Impaired 4 or More Clinical Presentation at Evaluation Evolving Impairments Impairments Activity Tolerance,Balance, Functional Activities, Functional Mobility,Gait,Pain, Posture,ROM,Soft Tissue Mobility,Strength,Transfers Goals strength Short Term Goal (STG) Pt will be indep w/HEP STG Duration 07/29 Alf Goal (LTG) Pt will score at least 4+/5 on all BLE MMT to show improved stability and mobility. LTG Duration 09/07 walking Short Term Goal (STG) Pt will be able to return to 1 mile walks at least every other day STG Duration 07/29 Bridge Ironworker Goal (LTG) Pt will be able to return to 3 mile walks at least every other day LTG Duration 09/07 activities Bridge Ironworker Goal (LTG) Pt will be able to walk hills and be able to go down stairs reciprocally w/o inc pain greater than 1/10. LTG Duration 09/07 Assessment Summary Assessment Pt presents w/L knee pain that is limiting her ability to stay as mobile as she'd like ( do yoga, exercise class, and walk). She has pain down stairs and w/hills and has mild to moderate OA. She does have weakness of L>R LE and is overall limited with her balance and stability likely related to her knee pain. She would benefit from skilled PT to work on strength, mobility and decreasing her pain. Physical Therapy Plan Frequency and Duration Frequency of Treatment 2x/Week Duration of treatment (weeks) 10 Plan of Care Start Date 06/29/24 Plan of Care End Date 09/07/24 Therapeutic Interventions Therapeutic Interventions Balance Training,Gait Training ,Home Exercise Program,Joint Mobilizations,Manual Therapy, Neuromuscular Re-education, Patient/Caregiver Education, Self-Care/Home Management,Soft Tissue Mobilization,Taping, Therapeutic Activities, Therapeutic Exercises Modalities Cold Pack/Ice Massage,Electric Stimulation,Hot Packs, Infrared Therapy,Ultrasound Next Visit Focus/Plan Next Note Type Treatment Note Next Visit Plan sidesteps, sit to stands or squats, bridge, balance exercises, manual for knee tracking. Plan of Care Dates Plan of Care Start Date 06/29/24 Plan of Care End Date 09/07/24 Electronically Signed by: Keila Martini, PT 06/29/24 [id number] If you are in agreement with this Plan of Care, please return a signed and dated copy. I have reviewed this Plan of Care and certify that the skilled therapy services above are required to meet the patient?s needs. Physician Signature Date Printed Name and Credentials Clinical Instructor Signature Printed Name and Credentials
--- NOTE | 2024-07-13 15:13 | PT.OTN ---
Current Diagnoses Pain in left knee (07/13/24) Physical Therapy Treatment Note PT-OP-A Visit Information Start: 06/28/24 18:59 Freq: Status: Active Protocol: Document 07/13/24 09:04 [facility] (Rec: 07/13/24 15:13 [facility] [id number]) Out-Patient Physical Therapy Visit Information Visit Information Visit Type Treatment Note Visit Start Time 09:07 Visit Stop Time 09:47 Visit Number 2 Number of SUPERVISOR BACKFILLING Visits 0 PT-OP-B Current Condition Start: 06/28/24 18:59 Freq: Status: Active Protocol: Document 06/29/24 13:03 [facility] (Rec: 06/29/24 15:00 [facility] [id number]) Current Condition History of Current Condition Onset Date about 1 year Current Complaints L knee pain History of Current Condition Pt loves to walk and typically walks 3 miles prior to this. mostly flat. It has been 2-3 months since he did. she has an orhtotic that helped but didn't fully help. She has tried hills and that really hurts. She tries to stay active by parking further away but no regimented walks. She can't do hills right now. When first stand up, after sitting for a while then L knee is uncomfortable. 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 has osteoporosis. Has a lot of metal still in L ankle and bones healed well and she rarely had pain (occ sharp). Her L big toe has very limited movement. 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 typically does yoga but stopped because so many exercises that weren't comfortable on L foot. Does functional fitness 2x/week for 1 hour but hasn't gone for the past 2-3 weeks because of her L knee. UP stairs is okay but coming down is hard. no specific onset. She did have to go [place] a [place] path at beach in her boots for her elephant seal protection event along w/longer distance and it flared it up. She did this a couple days and had to stop because she was hurting. Pt notes occasionally has B hip pain too Treatment Goals Patient/Caregiver Goals gets some exercises to help pain, return to walking , return to exercise class, yoga PT-OP-C Subjective Start: 06/28/24 18:59 Freq: Status: Active Protocol: Document 07/13/24 09:04 [facility] (Rec: 07/13/24 15:13 [facility] [id number]) OP-PT Subjective Patient Comments Patient Comments Pt reports during functional fitness class, she noticed when doing balance, she didn't do well. When she sits for > 15 min, that L knee hurts bad when getting up. Everything from hips down aches when get up. Also can happen at night too. PT-OP-G Mobility & Gait Start: 06/28/24 18:59 Freq: Status: Active Protocol: Document 06/29/24 13:03 [facility] (Rec: 06/29/24 15:00 [facility] [id number]) OP Gait Assessment Comments Gait Comments harder impact on LLE, lat lean over LLE ,dec LLE push off PT-OP-J Posture/Palpation/Skin Start: 06/28/24 18:59 Freq: Status: Active Protocol: Document 06/29/24 13:03 [facility] (Rec: 06/29/24 15:00 [facility] [id number]) Posture Evaluation Comments Posture Comments IR L femur and ER tibia, R iliac crest higher and R greater trochanter higher PT-OP-K Range of Motion Start: 06/28/24 18:59 Freq: Status: Active Protocol: Document 06/29/24 13:03 [facility] (Rec: 06/29/24 15:00 [facility] [id number]) Knee Goniometric Range of Motion Knee Left Flexion Active (degrees) 128 Extension Active (degrees) 0 PT-OP-L Special Tests Start: 06/28/24 18:59 Freq: Status: Active Protocol: Document 06/29/24 13:03 [facility] (Rec: 06/29/24 15:00 [facility] [id number]) Special Tests Knee Special Tests ligamentous Comments ACL, PCL, LCL, MCL neg jt jackson Comments tender lat Ramiro Test Comments neg PT-OP-M Strength Start: 06/28/24 18:59 Freq: Status: Active Protocol: Document 06/29/24 13:03 [facility] (Rec: 06/29/24 15:00 [facility] [id number]) Hip Strength Hip Manual Muscle Testing Right Flexion (L2) 3+ Fair+ Extension (S1) 3+ Fair+ Abduction 4- Good- Adduction 4- Good- External Rotation 3+ Fair+ Internal Rotation 4+ Good+ Left Flexion (L2) 3+ Fair+ Extension (S1) 3+ Fair+ Abduction 3+ Fair+ Adduction 3+ Fair+ External Rotation 3+ Fair+ Internal Rotation 4- Good- Knee Strength Knee Manual Muscle Testing Right Flexion (S2) 5 Normal Extension (L3) 5 Normal Left Flexion (S2) 4 Good Extension (L3) 4 Good Ankle/Foot Strength Ankle and Foot Manual Muscle Testing Right Dorsiflexion (L4) 5 Normal Plantarflexion (S1) 5 Normal Left Dorsiflexion (L4) 4+ Good+ Plantarflexion (S1) 4+ Good+ PT-OP-Q Treatments Start: 06/28/24 18:59 Freq: Status: Active Protocol: Document 07/13/24 09:04 [facility] (Rec: 07/13/24 15:13 [facility] [id number]) Therapeutic Exercises Supine Exercises stretch Supine Exercise Name piriformis Side bilateral Reps/Minutes 30 sec ea isometric Supine Exercise Name DL flex w/DF Side bilateral Reps/Minutes 30 sec bridge Supine Exercise Name cues segmental and slowly Side bilateral Reps/Minutes 10 Standing Exercises sidestep Side bilateral Resistance L3 at ankles Reps/Minutes 20ft ea Comments cues no lat lean, core sit to stand Side bilateral Equipment Used L3 at knees Reps/Minutes 2x10 Comments cues knee position and slow decemt Therapeutic Activity Therapeutic Activity sleep Reps/Minutes 8 min Comments s/l sleep position w/pillows and towels Manual Therapy Treatment Consent Patient gave verbal consent for manual Yes treatment Soft Tissue Mobilization quad Body Location L quad, patellar tendon, ITB Mobilization Type Rolling Intensity/Depth Moderate Body Position Standing Joint Mobilizations hip Joint ER free the ball c/r Body Position Hooklying patellofemoral Joint sup, inf, med Grade II Taping L knee Body Location quad Y strip and I strip under patella and around patella Treatment Focus patellar tracking Type of Tape Kinesio Tape PT-OP-T Assessment and Plan Start: 06/28/24 18:59 Freq: Status: Active Protocol: Document 07/13/24 09:04 [facility] (Rec: 07/13/24 15:13 [facility] [id number]) Physical Therapy Assessment Goals strength Short Term Goal (STG) Pt will be indep w/HEP STG Duration 5/10 Transportation Technician Goal (LTG) Pt will score at least 4+/5 on all BLE MMT to show improved stability and mobility. LTG Duration 09/07 walking Short Term Goal (STG) Pt will be able to return to 1 mile walks at least every other day STG Duration 07/29 Transportation Technician Goal (LTG) Pt will be able to return to 3 mile walks at least every other day LTG Duration 09/07 activities Transportation Technician Goal (LTG) Pt will be able to walk hills and be able to go down stairs reciprocally w/o inc pain greater than 1/10. LTG Duration 09/07 Assessment Summary Assessment No pain noted w/exercises. She did need cues for form and posture and slowly controlling her movement. She was receptive re: edu for sleep position and w/exercises. Noted dec pain after taping. Physical Therapy Plan Frequency and Duration Frequency of Treatment 2x/Week Duration of treatment (weeks) 10 Plan of Care Start Date 06/29/24 Plan of Care End Date 09/07/24 Next Visit Focus/Plan Next Note Type Treatment Note Next Visit Plan review exercises, balance exercises, manual for knee tracking (pelvis, hips, knees, ankle mobility)
--- NOTE | 2024-07-20 16:35 | PT.OTN ---
Current Diagnoses Pain in left knee (07/20/24) Physical Therapy Treatment Note PT-OP-A Visit Information Start: 06/28/24 18:59 Freq: Status: Active Protocol: Document 07/20/24 15:04 [facility] (Rec: 07/20/24 16:13 [facility] Laptop) Out-Patient Physical Therapy Visit Information Visit Information Visit Type Treatment Note Visit Start Time 15:19 Visit Stop Time 16:03 Visit Number 3 Number of DERMATOLOGY TEACHER Visits 1 PT-OP-B Current Condition Start: 06/28/24 18:59 Freq: Status: Active Protocol: Document 06/29/24 13:03 [facility] (Rec: 06/29/24 15:00 [facility] [id number]) Current Condition History of Current Condition Onset Date about 1 year Current Complaints L knee pain History of Current Condition Pt loves to walk and typically walks 3 miles prior to this. mostly flat. It has been 2-3 months since he did. she has an orhtotic that helped but didn't fully help. She has tried hills and that really hurts. She tries to stay active by parking further away but no regimented walks. She can't do hills right now. When first stand up, after sitting for a while then L knee is uncomfortable. 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 has osteoporosis. Has a lot of metal still in L ankle and bones healed well and she rarely had pain (occ sharp). Her L big toe has very limited movement. 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 typically does yoga but stopped because so many exercises that weren't comfortable on L foot. Does functional fitness 2x/week for 1 hour but hasn't gone for the past 2-3 weeks because of her L knee. UP stairs is okay but coming down is hard. no specific onset. She did have [place] in her [place] for her elephant seal protection event along w/longer distance and it flared it up. She did this a couple days and had to stop because she was hurting. Pt notes occasionally has B hip pain too Treatment Goals Patient/Caregiver Goals gets some exercises to help pain, return to walking , return to exercise class, yoga PT-OP-C Subjective Start: 06/28/24 18:59 Freq: Status: Active Protocol: Document 07/20/24 15:04 [facility] (Rec: 07/20/24 16:13 [facility] Laptop) OP-PT Subjective Patient Comments Patient Comments Patient reports she is better, is doing a fitness class at the [facility] that also incorporates stretching, strengthening, balance, breathing. Patient rates L knee pain 1-2/10 ambulating into session. PT-OP-G Mobility & Gait Start: 06/28/24 18:59 Freq: Status: Active Protocol: Document 06/29/24 13:03 [facility] (Rec: 06/29/24 15:00 [facility] [id number]) OP Gait Assessment Comments Gait Comments harder impact on LLE, lat lean over LLE ,dec LLE push off PT-OP-J Posture/Palpation/Skin Start: 06/28/24 18:59 Freq: Status: Active Protocol: Document 06/29/24 13:03 [facility] (Rec: 06/29/24 15:00 [facility] [id number]) Posture Evaluation Comments Posture Comments IR L femur and ER tibia, R iliac crest higher and R greater trochanter higher PT-OP-K Range of Motion Start: 06/28/24 18:59 Freq: Status: Active Protocol: Document 06/29/24 13:03 [facility] (Rec: 06/29/24 15:00 [facility] [id number]) Knee Goniometric Range of Motion Knee Left Flexion Active (degrees) 128 Extension Active (degrees) 0 PT-OP-L Special Tests Start: 06/28/24 18:59 Freq: Status: Active Protocol: Document 06/29/24 13:03 [facility] (Rec: 06/29/24 15:00 [facility] [id number]) Special Tests Knee Special Tests ligamentous Comments ACL, PCL, LCL, MCL neg jt jackson Comments tender lat Ramiro Test Comments neg PT-OP-M Strength Start: 06/28/24 18:59 Freq: Status: Active Protocol: Document 06/29/24 13:03 [facility] (Rec: 06/29/24 15:00 [facility] [id number]) Hip Strength Hip Manual Muscle Testing Right Flexion (L2) 3+ Fair+ Extension (S1) 3+ Fair+ Abduction 4- Good- Adduction 4- Good- External Rotation 3+ Fair+ Internal Rotation 4+ Good+ Left Flexion (L2) 3+ Fair+ Extension (S1) 3+ Fair+ Abduction 3+ Fair+ Adduction 3+ Fair+ External Rotation 3+ Fair+ Internal Rotation 4- Good- Knee Strength Knee Manual Muscle Testing Right Flexion (S2) 5 Normal Extension (L3) 5 Normal Left Flexion (S2) 4 Good Extension (L3) 4 Good Ankle/Foot Strength Ankle and Foot Manual Muscle Testing Right Dorsiflexion (L4) 5 Normal Plantarflexion (S1) 5 Normal Left Dorsiflexion (L4) 4+ Good+ Plantarflexion (S1) 4+ Good+ PT-OP-Q Treatments Start: 06/28/24 18:59 Freq: Status: Active Protocol: Document 07/20/24 15:04 [facility] (Rec: 07/20/24 16:13 [facility] Laptop) Therapeutic Exercises Supine Exercises stretch Supine Exercise Name piriformis Side bilateral Reps/Minutes 30 sec ea X 2 Comments Verbal cues to dec trunk rotation isometric Supine Exercise Name DL flex w/DF Side bilateral Reps/Minutes 30 sec Comments verbal cues bridge Supine Exercise Name cues segmental and slowly Side bilateral Reps/Minutes 8 Comments patient ed rationale for segmental for core Standing Exercises sidestep Side bilateral Resistance L4 at ankles latex free Reps/Minutes 8ft ea Comments vc to avoid toe out sit to stand Side bilateral Equipment Used L4 at knees latex free Reps/Minutes 2x10 Comments cues knee position and dec velocity Manual Therapy Treatment Soft Tissue Mobilization quad Body Location L quad, patellar tendon, ITB Mobilization Type Cross-Friction,Rolling Intensity/Depth Moderate Body Position Hooklying Joint Mobilizations hip Joint free the ball med to lat mob with IR Body Position Hooklying patellofemoral Joint sup, inf, medL Grade II Taping L knee Body Location quad Y strip and I strip under patella and around patella Treatment Focus patellar tracking Type of Tape Kinesio Tape PT-OP-T Assessment and Plan Start: 06/28/24 18:59 Freq: Status: Active Protocol: Document 07/20/24 15:04 [facility] (Rec: 07/20/24 16:13 [facility] Laptop) Physical Therapy Assessment Goals strength Short Term Goal (STG) Pt will be indep w/HEP STG Duration 07/29 Prison Goal (LTG) Pt will score at least 4+/5 on all BLE MMT to show improved stability and mobility. LTG Duration 09/07 walking Short Term Goal (STG) Pt will be able to return to 1 mile walks at least every other day STG Duration /10 Forestry Aid Goal (LTG) Pt will be able to return to 3 mile walks at least every other day LTG Duration 09/07 activities Forestry Aid Goal (LTG) Pt will be able to walk hills and be able to go down stairs reciprocally w/o inc pain greater than 1/10. LTG Duration 09/07 Assessment Summary Assessment Rhianna reports having no knee pain with ambulation post manual and kinesiot aping. Progressed to level 4 band for banded exercises this session . Physical Therapy Plan Frequency and Duration Frequency of Treatment 2x/Week Duration of treatment (weeks) 10 Plan of Care Start Date 06/29/24 Plan of Care End Date 09/07/24 Next Visit Focus/Plan Next Note Type Treatment Note Next Visit Plan balance exercises, manual for knee tracking (pelvis, hips, knees, ankle mobility)
--- NOTE | 2024-07-25 14:56 | PT.OTN ---
Current Diagnoses Pain in left knee (07/25/24) Physical Therapy Treatment Note PT-OP-A Visit Information Start: 06/28/24 18:59 Freq: Status: Active Protocol: Document 07/25/24 13:49 [facility] (Rec: 07/25/24 14:56 [facility] [id number]) Out-Patient Physical Therapy Visit Information Visit Information Visit Type Progress Note Visit Start Time 13:51 Visit Stop Time 14:31 Visit Number [address] INSPECTOR Visits 0 PT-OP-B Current Condition Start: 06/28/24 18:59 Freq: Status: Active Protocol: Document 06/29/24 13:03 [facility] (Rec: 06/29/24 15:00 [facility] [id number]) Current Condition History of Current Condition Onset Date about 1 year Current Complaints L knee pain History of Current Condition Pt loves to walk and typically walks 3 miles prior to this. mostly flat. It has been 2-3 months since he did. she has an orhtotic that helped but didn't fully help. She has tried hills and that really hurts. She tries to stay active by parking further away but no regimented walks. She can't do hills right now. When first stand up, after sitting for a while then L knee is uncomfortable. 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 has osteoporosis. Has a lot of metal still in L ankle and bones healed well and she rarely had pain (occ sharp). Her L big toe has very limited movement. 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 typically does yoga but stopped because so many exercises that weren't comfortable on L foot. Does functional fitness 2x/week for 1 hour but hasn't gone for the past 2-3 weeks because of her L knee. UP stairs is okay but coming down is hard. no specific onset. She did have to go [place] in her [place] for her elephant seal protection event along w/longer distance and it flared it up. She did this a couple days and had to stop because she was hurting. Pt notes occasionally has B hip pain too Treatment Goals Patient/Caregiver Goals gets some exercises to help pain, return to walking , return to exercise class, yoga PT-OP-C Subjective Start: 06/28/24 18:59 Freq: Status: Active Protocol: Document 07/25/24 13:49 [facility] (Rec: 07/25/24 14:56 [id number] OP-PT Subjective Patient Comments Patient Comments Pt reports pain from R lat knee up lat leg and L leg was hard. walked 2.5 miles for the elephant seal PT-OP-G Mobility & Gait Start: 06/28/24 18:59 Freq: Status: Active Protocol: Document 06/29/24 13:03 [facility] (Rec: 06/29/24 15:00 [facility] [id number]) OP Gait Assessment Comments Gait Comments harder impact on LLE, lat lean over LLE ,dec LLE push off PT-OP-J Posture/Palpation/Skin Start: 06/28/24 18:59 Freq: Status: Active Protocol: Document 06/29/24 13:03 [facility] (Rec: 06/29/24 15:00 [facility] [id number]) Posture Evaluation Comments Posture Comments IR L femur and ER tibia, R iliac crest higher and R greater trochanter higher PT-OP-K Range of Motion Start: 06/28/24 18:59 Freq: Status: Active Protocol: Document 06/29/24 13:03 [facility] (Rec: 06/29/24 15:00 [facility] [id number]) Knee Goniometric Range of Motion Knee Left Flexion Active (degrees) 128 Extension Active (degrees) 0 PT-OP-L Special Tests Start: 06/28/24 18:59 Freq: Status: Active Protocol: Document 06/29/24 13:03 [facility] (Rec: 06/29/24 15:00 [facility] [id number]) Special Tests Knee Special Tests ligamentous Comments ACL, PCL, LCL, MCL neg jt jackson Comments tender lat Ramiro Test Comments neg PT-OP-M Strength Start: 06/28/24 18:59 Freq: Status: Active Protocol: Document 07/25/24 13:49 [facility] (Rec: 07/25/24 14:56 [facility] [id number]) Hip Strength Hip Manual Muscle Testing Right Flexion (L2) 3+ Fair+ Extension (S1) 4- Good- Abduction 4 Good Adduction 4+ Good+ External Rotation 4- Good- Internal Rotation 5 Normal Left Flexion (L2) 4- Good- Extension (S1) 4 Good Abduction 4 Good Adduction 4- Good- External Rotation 4- Good- Internal Rotation 5 Normal Knee Strength Knee Manual Muscle Testing Right Flexion (S2) 5 Normal Extension (L3) 5 Normal Left Flexion (S2) 4+ Good+ Extension (L3) 4+ Good+ Ankle/Foot Strength Ankle and Foot Manual Muscle Testing Right Dorsiflexion (L4) 5 Normal Plantarflexion (S1) 5 Normal Comments 20 heel raises Left Dorsiflexion (L4) 4+ Good+ Plantarflexion (S1) 4+ Good+ Comments 15 heel raises, knee pain PT-OP-Q Treatments Start: 06/28/24 18:59 Freq: Status: Active Protocol: Document 07/25/24 13:49 [facility] (Rec: 07/25/24 14:56 [facility] [id number]) Therapeutic Exercises Sitting Exercises hip ER Side bilateral Reps/Minutes DL x10 (blue and maroon), SL B (blue and maroon)-5 ea Comments cues core, posture and no shift Standing Exercises lunge Standing Exercise Name lat lunges Side bilateral Reps/Minutes 6 Comments stopped d/t knee creaking even w/cues for form step Standing Exercise Name step down lat Side left Equipment Used 4 in, 6in Reps/Minutes 1. 12 2. 5 Comments stopped d/t unable to get good form & audible knee creaking Manual Therapy Treatment Consent Patient gave verbal consent for manual Yes treatment Soft Tissue Mobilization quad Body Location L quad, ITB Mobilization Type Rolling,Strumming Intensity/Depth Moderate Body Position Hooklying Joint Mobilizations tibiofemoral Comments PA w/APs hip Body Position Hooklying Comments free the ball ER c/r L Taping L knee Body Location quad Y strip and I strip under patella and around patella Treatment Focus patellar tracking Type of Tape Kinesio Tape PT-OP-T Assessment and Plan Start: 06/28/24 18:59 Freq: Status: Active Protocol: Document 07/25/24 13:49 [facility] (Rec: 07/25/24 14:56 [facility] [id number]) Physical Therapy Assessment Goals strength Short Term Goal (STG) Pt will be indep w/HEP 5/6-improving STG Duration 5/10 Miter Sawyer Goal (LTG) Pt will score at least 4+/5 on all BLE MMT to show improved stability and mobility. 5/6-improving LTG Duration 09/07 walking Short Term Goal (STG) Pt will be able to return to 1 mile walks at least every other day STG Duration achieved 6 Miter Sawyer Goal (LTG) Pt will be able to return to 3 mile walks at least every other day 5/6-doing up to 2 miles, been walking more for [place] LTG Duration 09/07 activities Senior Care Goal (LTG) Pt will be able to walk hills and be able to go down stairs reciprocally w/o inc pain greater than 1/10. 07/25-pain down stairs, hasn't done a ton of hills yet LTG Duration 09/07 Assessment Summary Assessment Pt making good progress w/PT and was unable to elicit pain w/the same exercise w/band in PT. Needed cues for posture and position and was encouraged to use dec band as needed in class. Pt improving strength, and functional mobility w/PT so cont PT to improve balance, strength, and functional mobility w/knees to dec pain. Physical Therapy Plan Frequency and Duration Frequency of Treatment 2x/Week Duration of treatment (weeks) 10 Plan of Care Start Date 06/29/24 Plan of Care End Date 09/07/24 Therapeutic Interventions Therapeutic Interventions Balance Training,Gait Training ,Home Exercise Program,Joint Mobilizations,Manual Therapy, Neuromuscular Re-education, Patient/Caregiver Education, Self-Care/Home Management,Soft Tissue Mobilization,Taping, Therapeutic Activities, Therapeutic Exercises Modalities Cold Pack/Ice Massage,Electric Stimulation,Hot Packs, Infrared Therapy,Ultrasound Next Visit Focus/Plan Next Note Type Treatment Note Next Visit Plan LE strength,balance exercises, manual for knee tracking ( pelvis, hips, knees, ankle mobility)
--- NOTE | 2024-07-27 14:41 | PT.OTN ---
Current Diagnoses Pain in left knee (07/27/24) Physical Therapy Treatment Note PT-OP-A Visit Information Start: 06/28/24 18:59 Freq: Status: Active Protocol: Document 07/27/24 13:52 [facility] (Rec: 07/27/24 15:19 [facility] Laptop) Out-Patient Physical Therapy Visit Information Visit Information Visit Type Treatment Note Visit Note Lima HOPKINS led tx with permission from pt and direct supervision from Vee COMBS. Visit Start Time 13:52 Visit Stop Time 14:41 Visit Number 5 Number of DISH PERSON Visits 1 PT-OP-B Current Condition Start: 06/28/24 18:59 Freq: Status: Active Protocol: Document 06/29/24 13:03 [facility] (Rec: 06/29/24 15:00 [facility] [id number]) Current Condition History of Current Condition Onset Date about 1 year Current Complaints L knee pain History of Current Condition Pt loves to walk and typically walks 3 miles prior to this. mostly flat. It has been 2-3 months since he did. she has an orhtotic that helped but didn't fully help. She has tried hills and that really hurts. She tries to stay active by parking further away but no regimented walks. She can't do hills right now. When first stand up, after sitting for a while then L knee is uncomfortable. 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 has osteoporosis. Has a lot of metal still in L ankle and bones healed well and she rarely had pain (occ sharp). Her L big toe has very limited movement. 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 typically does yoga but stopped because so many exercises that weren't comfortable on L foot. Does functional fitness 2x/week for 1 hour but hasn't gone for the past 2-3 weeks because of her L knee. UP stairs is okay but coming down is hard. no specific onset. She did have to go [place] in her [place] for her elephant seal protection event along w/longer distance and it flared it up. She did this a couple days and had to stop because she was hurting. Pt notes occasionally has B hip pain too Treatment Goals Patient/Caregiver Goals gets some exercises to help pain, return to walking , return to exercise class, yoga PT-OP-C Subjective Start: 06/28/24 18:59 Freq: Status: Active Protocol: Document 07/27/24 13:52 [facility] (Rec: 07/27/24 15:19 [facility] Laptop) OP-PT Subjective Patient Comments Patient Comments Pt has been feeling good but some discomfort in both knees. Was able to do some walking, a little under 2 miles yesterday with no issues. She still has her L knee taped for patella tracking from Wednesday's PT tx and feels as though it was great help. Pt did report that when going from sit>stand after 45min, pt has to take abt 15-20 seconds to shake out her legs. She often has her legs extended out when sitting for that long . PT-OP-G Mobility & Gait Start: 06/28/24 18:59 Freq: Status: Active Protocol: Document 06/29/24 13:03 [facility] (Rec: 06/29/24 15:00 [facility] [id number]) OP Gait Assessment Comments Gait Comments harder impact on LLE, lat lean over LLE ,dec LLE push off PT-OP-J Posture/Palpation/Skin Start: 06/28/24 18:59 Freq: Status: Active Protocol: Document 06/29/24 13:03 [facility] (Rec: 06/29/24 15:00 [facility] [id number]) Posture Evaluation Comments Posture Comments IR L femur and ER tibia, R iliac crest higher and R greater trochanter higher PT-OP-K Range of Motion Start: 06/28/24 18:59 Freq: Status: Active Protocol: Document 06/29/24 13:03 [facility] (Rec: 06/29/24 15:00 [facility] [id number]) Knee Goniometric Range of Motion Knee Left Flexion Active (degrees) 128 Extension Active (degrees) 0 PT-OP-L Special Tests Start: 06/28/24 18:59 Freq: Status: Active Protocol: Document 06/29/24 13:03 [facility] (Rec: 06/29/24 15:00 [facility] [id number]) Special Tests Knee Special Tests ligamentous Comments ACL, PCL, LCL, MCL neg jt jackson Comments tender lat Ramiro Test Comments neg PT-OP-M Strength Start: 06/28/24 18:59 Freq: Status: Active Protocol: Document 07/25/24 13:49 [facility] (Rec: 07/25/24 14:56 [facility] [id number]) Hip Strength Hip Manual Muscle Testing Right Flexion (L2) 3+ Fair+ Extension (S1) 4- Good- Abduction 4 Good Adduction 4+ Good+ External Rotation 4- Good- Internal Rotation 5 Normal Left Flexion (L2) 4- Good- Extension (S1) 4 Good Abduction 4 Good Adduction 4- Good- External Rotation 4- Good- Internal Rotation 5 Normal Knee Strength Knee Manual Muscle Testing Right Flexion (S2) 5 Normal Extension (L3) 5 Normal Left Flexion (S2) 4+ Good+ Extension (L3) 4+ Good+ Ankle/Foot Strength Ankle and Foot Manual Muscle Testing Right Dorsiflexion (L4) 5 Normal Plantarflexion (S1) 5 Normal Comments 20 heel raises Left Dorsiflexion (L4) 4+ Good+ Plantarflexion (S1) 4+ Good+ Comments 15 heel raises, knee pain PT-OP-Q Treatments Start: 06/28/24 18:59 Freq: Status: Active Protocol: Document 07/27/24 13:52 [facility] (Rec: 07/27/24 15:19 [facility] Laptop) Therapeutic Exercises Supine Exercises ITB stretch Supine Exercise Name Trialed in PT added to HEP, provided HO Side bilateral Equipment Used strap Reps/Minutes 30 sec each Comments cues for set up and keep hips on the table Sitting Exercises Quad stretch Sitting Exercise Name Reviewed pt's self taught quad stretch Side bilateral Reps/Minutes 30 sec each Comments pt sitting on edge of chair in lunge-like posit, lean back at trunk strtch Self STM Sitting Exercise Name ITB and L quad Self STM w rolling pin Side bilateral Equipment Used rolling pin LAQ Sitting Exercise Name Trialed in PT, added to HEP with HO Side bilateral Resistance lvl 1 pink TB (latex free) Reps/Minutes 10x each Comments cued to keep thigh in contact with seat Manual Therapy Treatment Soft Tissue Mobilization quad Body Location L quad, ITB Mobilization Type Rolling Intensity/Depth Moderate Body Position Supine Joint Mobilizations tibiofemoral Body Position Hooklying Comments PA w/APs hip Body Position Hooklying Comments free the ball ER MWM L Self-Care/Home Management Treatment Education Patient Education Pain Management Other Education Educated pt in self STM's with rolling pin to decrease tension in L or both ITB's/ quads. Tightness of lateral musculature could pull patella laterally, decreasing tension may improve patellar tracking . PT-OP-T Assessment and Plan Start: 06/28/24 18:59 Freq: Status: Active Protocol: Document 07/27/24 13:52 [facility] (Rec: 07/27/24 15:19 [facility] Laptop) Physical Therapy Assessment Goals strength Short Term Goal (STG) Pt will be indep w/HEP 5/6-improving STG Duration 07/29 Life Science Technician Goal (LTG) Pt will score at least 4+/5 on all BLE MMT to show improved stability and mobility. 5/6-improving LTG Duration 09/07 walking Short Term Goal (STG) Pt will be able to return to 1 mile walks at least every other day STG Duration achieved 6 Life Science Technician Goal (LTG) Pt will be able to return to 3 mile walks at least every other day 5/6-doing up to 2 miles, been walking more for July LTG Duration 09/07 activities Longterm Goal (LTG) Pt will be able to walk hills and be able to go down stairs reciprocally w/o inc pain greater than 1/10. 5/6-pain down stairs, hasn't done a ton of hills yet LTG Duration 09/07 Assessment Summary Assessment Pt tolerated tx well today. Had a good response to manual treatment and free the ball ER MWM, reported feeling a good stretch at the anterior hip. Provided pt with ITB stretch and instructed her in self massage with rolling pin for her L ITB and quad to help decrease tension. Added LAQ HEP for isolated strengthening of knee extensors. Physical Therapy Plan Frequency and Duration Frequency of Treatment 2x/Week Duration of treatment (weeks) 10 Plan of Care Start Date 06/29/24 Plan of Care End Date 09/07/24 Therapeutic Interventions Therapeutic Interventions Balance Training,Gait Training ,Home Exercise Program,Joint Mobilizations,Manual Therapy, Neuromuscular Re-education, Patient/Caregiver Education, Self-Care/Home Management,Soft Tissue Mobilization,Taping, Therapeutic Activities, Therapeutic Exercises Modalities Cold Pack/Ice Massage,Electric Stimulation,Hot Packs, Infrared Therapy,Ultrasound Next Visit Focus/Plan Next Note Type Treatment Note Next Visit Plan Next: Review added HEP, reassess lateral step ups, trial balance shuttle, KT taping POC: LE strength,balance exercises, manual for knee tracking (pelvis, hips, knees, ankle mobility)
--- NOTE | 2024-08-01 14:36 | PT.OTN ---
Current Diagnoses Pain in left knee (08/01/24) Physical Therapy Treatment Note PT-OP-A Visit Information Start: 06/28/24 18:59 Freq: Status: Active Protocol: Document 08/01/24 13:49 [facility] (Rec: 08/01/24 14:36 [facility] [id number]) Out-Patient Physical Therapy Visit Information Visit Information Visit Type Treatment Note Visit Start Time 13:50 Visit Stop Time 14:30 Visit Number 6 Number of POLISHING MACHINE OPERATOR HELPER Visits 0 PT-OP-B Current Condition Start: 06/28/24 18:59 Freq: Status: Active Protocol: Document 06/29/24 13:03 [facility] (Rec: 06/29/24 15:00 [facility] [id number]) Current Condition History of Current Condition Onset Date about 1 year Current Complaints L knee pain History of Current Condition Pt loves to walk and typically walks 3 miles prior to this. mostly flat. It has been 2-3 months since he did. she has an orhtotic that helped but didn't fully help. She has tried hills and that really hurts. She tries to stay active by parking further away but no regimented walks. She can't do hills right now. When first stand up, after sitting for a while then L knee is uncomfortable. 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 has osteoporosis. Has a lot of metal still in L ankle and bones healed well and she rarely had pain (occ sharp). Her L big toe has very limited movement. 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 typically does yoga but stopped because so many exercises that weren't comfortable on L foot. Does functional fitness 2x/week for 1 hour but hasn't gone for the past 2-3 weeks because of her L knee. UP stairs is okay but coming down is hard. no specific onset. She did have [place] in her [place] for her elephant seal protection event along w/longer distance and it flared it up. She did this a couple days and had to stop because she was hurting. Pt notes occasionally has B hip pain too Treatment Goals Patient/Caregiver Goals gets some exercises to help pain, return to walking , return to exercise class, yoga PT-OP-C Subjective Start: 06/28/24 18:59 Freq: Status: Active Protocol: Document 08/01/24 13:49 [facility] (Rec: 08/01/24 14:36 [facility] [id number]) OP-PT Subjective Patient Comments Patient Comments Pt reports she got a bunch of new exercises and it takes a long time to get through them. Feels like they are helpful. knee is still with her all the time. Going down hill then going over logs was difficult. She had to walk 2 miles on uneven beach also. up /down hill was painful and legs were aching. PT-OP-G Mobility & Gait Start: 06/28/24 18:59 Freq: Status: Active Protocol: Document 06/29/24 13:03 [facility] ([facility]/29/24 [id number] Gait Assessment Comments Gait Comments harder impact on LLE, lat lean over LLE ,dec LLE push off PT-OP-J Posture/Palpation/Skin Start: 06/28/24 18:59 Freq: Status: Active Protocol: Document 06/29/24 13:03 [facility] (Rec: 06/29/24 15:00 [id number] Posture Evaluation Comments Posture Comments IR L femur and ER tibia, R iliac crest higher and R greater trochanter higher PT-OP-K Range of Motion Start: 06/28/24 18:59 Freq: Status: Active Protocol: Document 06/29/24 13:03 [facility] (Rec: 06/29/24 15:00 [facility] [id number]) Knee Goniometric Range of Motion Knee Left Flexion Active (degrees) 128 Extension Active (degrees) 0 PT-OP-L Special Tests Start: 06/28/24 18:59 Freq: Status: Active Protocol: Document 06/29/24 13:03 [facility] (Rec: 06/29/24 15:00 [facility] [id number]) Special Tests Knee Special Tests ligamentous Comments ACL, PCL, LCL, MCL neg jt jackson Comments tender lat Ramiro Test Comments neg PT-OP-M Strength Start: 06/28/24 18:59 Freq: Status: Active Protocol: Document 07/25/24 13:49 [facility] (Rec: 07/25/24 14:56 [id number] Hip Strength Hip Manual Muscle Testing Right Flexion (L2) 3+ Fair+ Extension (S1) 4- Good- Abduction 4 Good Adduction 4+ Good+ External Rotation 4- Good- Internal Rotation 5 Normal Left Flexion (L2) 4- Good- Extension (S1) 4 Good Abduction 4 Good Adduction 4- Good- External Rotation 4- Good- Internal Rotation 5 Normal Knee Strength Knee Manual Muscle Testing Right Flexion (S2) 5 Normal Extension (L3) 5 Normal Left Flexion (S2) 4+ Good+ Extension (L3) 4+ Good+ Ankle/Foot Strength Ankle and Foot Manual Muscle Testing Right Dorsiflexion (L4) 5 Normal Plantarflexion (S1) 5 Normal Comments 20 heel raises Left Dorsiflexion (L4) 4+ Good+ Plantarflexion (S1) 4+ Good+ Comments 15 heel raises, knee pain PT-OP-Q Treatments Start: 06/28/24 18:59 Freq: Status: Active Protocol: Document 08/01/24 13:49 [facility] (Rec: 08/01/24 14:36 [facility] [id number]) Therapeutic Exercises Supine Exercises bridge Supine Exercise Name SL Side bilateral Reps/Minutes 5 sec x 5 Sitting Exercises LAQ Side bilateral Resistance lvl 1 pink TB (latex free) Reps/Minutes 5 ea Comments minimal challenge Standing Exercises march Side bilateral Equipment Used peach band Reps/Minutes 15 Comments cues slow decent sidestep Standing Exercise Name in mini squat Side bilateral Resistance L3 at knees, no band Reps/Minutes 10ft w/band, 10ft without sit to stand Side bilateral Equipment Used L4 at knees latex free Reps/Minutes 2x10 Comments cues knee position and dec velocity Manual Therapy Treatment Joint Mobilizations patellofemoral Joint sup, inf, med L Grade III Taping L knee Body Location quad Y strip and I strip under patella and around patella Treatment Focus patellar tracking Type of Tape Kinesio Tape PT-OP-T Assessment and Plan Start: 06/28/24 18:59 Freq: Status: Active Protocol: Document 08/01/24 13:49 [facility] (Rec: 08/01/24 14:36 [facility] [id number]) Physical Therapy Assessment Goals strength Short Term Goal (STG) Pt will be indep w/HEP 5/6-improving STG Duration 5/10 Alf Goal (LTG) Pt will score at least 4+/5 on all BLE MMT to show improved stability and mobility. 5/6-improving LTG Duration 09/07 walking Short Term Goal (STG) Pt will be able to return to 1 mile walks at least every other day STG Duration achieved 07/25 Alf Goal (LTG) Pt will be able to return to 3 mile walks at least every other day 5-doing up to 2 miles, been walking more for [place] LTG Duration 09/07 activities National Service Officer Goal (LTG) Pt will be able to walk hills and be able to go down stairs reciprocally w/o inc pain greater than /10. 07/25-pain down stairs, hasn't done a ton of hills yet LTG Duration 09/07 Assessment Summary Assessment Pt tolerated progression of exercises today.She is improving and will need more challenge to mimic her beach activities and stability for step downs etc. Physical Therapy Plan Frequency and Duration Frequency of Treatment 2x/Week Duration of treatment (weeks) 10 Plan of Care Start Date 06/29/24 Plan of Care End Date 09/07/24 Next Visit Focus/Plan Next Note Type Treatment Note Next Visit Plan KT taping, shuttle balance, hurdles w/wts, star tap, work on SL and balance, manual for improved knee tracking
--- NOTE | 2024-08-03 15:57 | PT.OTN ---
Current Diagnoses Pain in left knee (08/03/24) Physical Therapy Treatment Note PT-OP-A Visit Information Start: 06/28/24 18:59 Freq: Status: Active Protocol: Document 08/03/24 13:46 AB (Rec: 08/03/24 15:19 AB Laptop) Out-Patient Physical Therapy Visit Information Visit Information Visit Type Treatment Note Visit Note Visit [email or web address] Access Code: [email or web address] Visit Start Time 13:48 Visit Stop Time 14:31 Visit Number 7 PN by 08/25/24 Number of ICT DEVELOPMENT MANAGER Visits 1 PT-OP-B Current Condition Start: 06/28/24 18:59 Freq: Status: Active Protocol: Document 06/29/24 13:03 [facility] (Rec: 06/29/24 15:00 [facility] [id number]) Current Condition History of Current Condition Onset Date about 1 year Current Complaints L knee pain History of Current Condition Pt loves to walk and typically walks 3 miles prior to this. mostly flat. It has been 2-3 months since he did. she has an orhtotic that helped but didn't fully help. She has tried hills and that really hurts. She tries to stay active by parking further away but no regimented walks. She can't do hills right now. When first stand up, after sitting for a while then L knee is uncomfortable. 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 has osteoporosis. Has a lot of metal still in L ankle and bones healed well and she rarely had pain (occ sharp). Her L big toe has very limited movement. 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 typically does yoga but stopped because so many exercises that weren't comfortable on L foot. Does functional fitness 2x/week for 1 hour but hasn't gone for the past 2-3 weeks because of her L knee. UP stairs is okay but coming down is hard. no specific onset. She did have [place] go [place] in her [place] for her elephant seal protection event along w/longer distance and it flared it up. She did this a couple days and had to stop because she was hurting. Pt notes occasionally has B hip pain too Treatment Goals Patient/Caregiver Goals gets some exercises to help pain, return to walking , return to exercise class, yoga PT-OP-C Subjective Start: 06/28/24 18:59 Freq: Status: Active Protocol: Document 08/03/24 13:46 AB (Rec: 08/03/24 15:19 AB Laptop) OP-PT Subjective Patient Comments Patient Comments Patient reports the exercise change last session was positive, can feel it in the hips and thighs after performing in the morning, but it went away post breakfast. Rhianna reports having no pain start of session. SLS L LE 1, 1,2 sec without UE use 15+ seconds post glute med activation PT-OP-G Mobility & Gait Start: 06/28/24 18:59 Freq: Status: Active Protocol: Document 06/29/24 13:03 [facility] (Rec: 06/29/24 15:00 [facility] [id number]) OP Gait Assessment Comments Gait Comments harder impact on LLE, lat lean over LLE ,dec LLE push off PT-OP-J Posture/Palpation/Skin Start: 06/28/24 18:59 Freq: Status: Active Protocol: Document 06/29/24 13:03 [facility] (Rec: 06/29/24 15:00 [facility] [id number]) Posture Evaluation Comments Posture Comments IR L femur and ER tibia, R iliac crest higher and R greater trochanter higher PT-OP-K Range of Motion Start: 06/28/24 18:59 Freq: Status: Active Protocol: Document 06/29/24 13:03 [facility] (Rec: 06/29/24 15:00 [facility] [id number]) Knee Goniometric Range of Motion Knee Left Flexion Active (degrees) 128 Extension Active (degrees) 0 PT-OP-L Special Tests Start: 06/28/24 18:59 Freq: Status: Active Protocol: Document 06/29/24 13:03 [facility] (Rec: 06/29/24 15:00 [facility] [id number]) Special Tests Knee Special Tests ligamentous Comments ACL, PCL, LCL, MCL neg jt jackson Comments tender lat Ramiro Test Comments neg PT-OP-M Strength Start: 06/28/24 18:59 Freq: Status: Active Protocol: Document 07/25/24 13:49 [facility] (Rec: 07/25/24 14:56 [facility] [id number]) Hip Strength Hip Manual Muscle Testing Right Flexion (L2) 3+ Fair+ Extension (S1) 4- Good- Abduction 4 Good Adduction 4+ Good+ External Rotation 4- Good- Internal Rotation 5 Normal Left Flexion (L2) 4- Good- Extension (S1) 4 Good Abduction 4 Good Adduction 4- Good- External Rotation 4- Good- Internal Rotation 5 Normal Knee Strength Knee Manual Muscle Testing Right Flexion (S2) 5 Normal Extension (L3) 5 Normal Left Flexion (S2) 4+ Good+ Extension (L3) 4+ Good+ Ankle/Foot Strength Ankle and Foot Manual Muscle Testing Right Dorsiflexion (L4) 5 Normal Plantarflexion (S1) 5 Normal Comments 20 heel raises Left Dorsiflexion (L4) 4+ Good+ Plantarflexion (S1) 4+ Good+ Comments 15 heel raises, knee pain PT-OP-Q Treatments Start: 06/28/24 18:59 Freq: Status: Active Protocol: Document 08/03/24 13:46 AB (Rec: 08/03/24 15:19 AB Laptop) Gym Equipment Shuttle Balance red Details normal YANETH, with visual scanning and head turns Reps/Duration one UE and no UE's Comments CGA Therapeutic Exercises Sitting Exercises seated abd with band Sitting Exercise Name HEP Equipment Used blue band then purple latex free Reps/Minutes one min each Comments verbal cues Neuro Re-Education Treatment Balance Activities wall fall Reps/Duration X 10 Comments pillow behind back Foam Details Romb and tandem eyes closed, head turns, balloon volley stagger/romb Equipment 10 min Reps/Duration CGA step up taps Details 6 inch step standing on foam Reps/Duration X 15 Comments CGA tandem stepping Reps/Duration 10 feet X 8 Comments supervision hurdles Reps/Duration 10 feet X 8 Comments CGA PT-OP-T Assessment and Plan Start: 06/28/24 18:59 Freq: Status: Active Protocol: Document 08/03/24 13:46 AB (Rec: 08/03/24 15:19 AB Laptop) Physical Therapy Assessment Goals strength Short Term Goal (STG) Pt will be indep w/HEP 5/6-improving STG Duration 5/10 Shelter Goal (LTG) Pt will score at least 4+/5 on all BLE MMT to show improved stability and mobility. 5/6-improving LTG Duration 09/07 walking Short Term Goal (STG) Pt will be able to return to 1 mile walks at least every other day STG Duration achieved 07/25 Shelter Goal (LTG) Pt will be able to return to 3 mile walks at least every other day 5/6-doing up to 2 miles, been walking more for [place] Martinez LTG Duration 09/07 activities Email Deployment Specialist Goal (LTG) Pt will be able to walk hills and be able to go down stairs reciprocally w/o inc pain greater than 1/10. 07/25-pain down stairs, hasn't done a ton of hills yet LTG Duration 09/07 Assessment Summary Assessment End of session Rhianna reports she can feel her knee, but it is not pain. SLS L LE 1,1,2 sec without UE use, 15+ seconds post glute med activation. Physical Therapy Plan Frequency and Duration Frequency of Treatment 2x/Week Duration of treatment (weeks) 10 Plan of Care Start Date 06/29/24 Plan of Care End Date 09/07/24 Next Visit Focus/Plan Next Note Type Treatment Note Next Visit Plan KT taping, shuttle balance, hurdles w/wts, star tap, work on SL and balance, manual for improved knee tracking
--- NOTE | 2024-08-10 18:08 | PT.OTN ---
Current Diagnoses Pain in left knee (08/10/24) Physical Therapy Treatment Note PT-OP-A Visit Information Start: 06/28/24 18:59 Freq: Status: Active Protocol: Document 08/10/24 16:19 BL (Rec: 08/10/24 18:08 BL Laptop) Out-Patient Physical Therapy Visit Information Visit Information Visit Type Treatment Note Visit Note Visit [email or web address] Access Code: [email or web address] Visit Start Time 16:20 Visit Stop Time 17:05 Visit Number 8 PN by 08/25/24 Number of CENTRIFUGAL CASTING MACHINE TENDER Visits 0 PT-OP-B Current Condition Start: 06/28/24 18:59 Freq: Status: Active Protocol: Document 06/29/24 13:03 [facility] (Rec: 06/29/24 15:00 [facility] [id number]) Current Condition History of Current Condition Onset Date about 1 year Current Complaints L knee pain History of Current Condition Pt loves to walk and typically walks 3 miles prior to this. mostly flat. It has been 2-3 months since he did. she has an orhtotic that helped but didn't fully help. She has tried hills and that really hurts. She tries to stay active by parking further away but no regimented walks. She can't do hills right now. When first stand up, after sitting for a while then L knee is uncomfortable. 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 has osteoporosis. Has a lot of metal still in L ankle and bones healed well and she rarely had pain (occ sharp). Her L big toe has very limited movement. 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 typically does yoga but stopped because so many exercises that weren't comfortable on L foot. Does functional fitness 2x/week for 1 hour but hasn't gone for the past 2-3 weeks because of her L knee. UP stairs is okay but coming down is hard. no specific onset. She did have [place] go [place] in her [place] for her elephant seal protection event along w/longer distance and it flared it up. She did this a couple days and had to stop because she was hurting. Pt notes occasionally has B hip pain too Treatment Goals Patient/Caregiver Goals gets some exercises to help pain, return to walking , return to exercise class, yoga PT-OP-C Subjective Start: 06/28/24 18:59 Freq: Status: Active Protocol: Document 08/10/24 16:19 BL (Rec: 08/10/24 18:08 BL Laptop) OP-PT Subjective Patient Comments Patient Comments Pt reports to the clinic this date and reports she is doing well, states overall symptoms continue to improve with activity, happy with HEP and continues to advance as tolerated. Pt reports she continues to have pain throught R IT band area and also continues to feel her balance is a concern. PT-OP-G Mobility & Gait Start: 06/28/24 18:59 Freq: Status: Active Protocol: Document 06/29/24 13:03 [facility] (Rec: 06/29/24 15:00 [facility] [id number]) OP Gait Assessment Comments Gait Comments harder impact on LLE, lat lean over LLE ,dec LLE push off PT-OP-J Posture/Palpation/Skin Start: 06/28/24 18:59 Freq: Status: Active Protocol: Document 06/29/24 13:03 [facility] (Rec: 06/29/24 15:00 [facility] [id number]) Posture Evaluation Comments Posture Comments IR L femur and ER tibia, R iliac crest higher and R greater trochanter higher PT-OP-K Range of Motion Start: 06/28/24 18:59 Freq: Status: Active Protocol: Document 06/29/24 13:03 [facility] (Rec: 06/29/24 15:00 [facility] [id number]) Knee Goniometric Range of Motion Knee Left Flexion Active (degrees) 128 Extension Active (degrees) 0 PT-OP-L Special Tests Start: 06/28/24 18:59 Freq: Status: Active Protocol: Document 06/29/24 13:03 [facility] (Rec: 06/29/24 15:00 [facility] [id number]) Special Tests Knee Special Tests ligamentous Comments ACL, PCL, LCL, MCL neg jt jackson Comments tender lat Ramiro Test Comments neg PT-OP-M Strength Start: 06/28/24 18:59 Freq: Status: Active Protocol: Document 07/25/24 13:49 LR (Rec: 07/25/24 14:56 [facility] [id number]) Hip Strength Hip Manual Muscle Testing Right Flexion (L2) 3+ Fair+ Extension (S1) 4- Good- Abduction 4 Good Adduction 4+ Good+ External Rotation 4- Good- Internal Rotation 5 Normal Left Flexion (L2) 4- Good- Extension (S1) 4 Good Abduction 4 Good Adduction 4- Good- External Rotation 4- Good- Internal Rotation 5 Normal Knee Strength Knee Manual Muscle Testing Right Flexion (S2) 5 Normal Extension (L3) 5 Normal Left Flexion (S2) 4+ Good+ Extension (L3) 4+ Good+ Ankle/Foot Strength Ankle and Foot Manual Muscle Testing Right Dorsiflexion (L4) 5 Normal Plantarflexion (S1) 5 Normal Comments 20 heel raises Left Dorsiflexion (L4) 4+ Good+ Plantarflexion (S1) 4+ Good+ Comments 15 heel raises, knee pain PT-OP-Q Treatments Start: 06/28/24 18:59 Freq: Status: Active Protocol: Document 08/10/24 16:19 BL (Rec: 08/10/24 18:08 BL Laptop) Gym Equipment Shuttle Balance red Details normal YANETH, with visual scanning and head turns Reps/Duration one UE and no UE's Comments CGA Therapeutic Exercises Supine Exercises ITB stretch Supine Exercise Name reviewed Side bilateral Equipment Used strap Reps/Minutes 30 sec each Comments cues for set up and keep hips on the table stretch Supine Exercise Name piriformis (reviewed) Side bilateral Reps/Minutes 30 sec ea X 2 Comments Verbal cues to dec trunk rotation Sitting Exercises NuStep Sitting Exercise Name Warm Up x 3 minutes lvl 3 Quad stretch Sitting Exercise Name Reviewed pt's self taught quad stretch Side bilateral Reps/Minutes 30 sec each Comments pt sitting on edge of chair in lunge-like posit, lean back at trunk strtch Self STM Sitting Exercise Name ITB and L quad Self STM w rolling pin (reviewed) Side bilateral Equipment Used rolling pin Standing Exercises march Standing Exercise Name lateral stepping Side bilateral Equipment Used purple band Reps/Minutes 15 Comments cues slow decent step Standing Exercise Name step down lat Side left Equipment Used 4 in, Reps/Minutes 1. 12 2. 5 Comments stopped d/t unable to get good form & audible knee creaking sidestep Standing Exercise Name in mini squat Side bilateral Resistance L3 at knees, purple band Reps/Minutes 10ft w/band, 10ft without Manual Therapy Treatment Consent Patient gave verbal consent for manual Yes treatment Neuro Re-Education Treatment Balance Activities Foam Details Romb and tandem eyes closed, head turns, balloon volley stagger/romb Equipment 10 min Reps/Duration CGA PT-OP-T Assessment and Plan Start: 06/28/24 18:59 Freq: Status: Active Protocol: Document 08/10/24 16:19 BL (Rec: 08/10/24 18:08 BL Laptop) Physical Therapy Assessment Goals strength Short Term Goal (STG) Pt will be indep w/HEP /6-improving STG Duration 07/29 Foundry Worker Goal (LTG) Pt will score at least 4+/5 on all BLE MMT to show improved stability and mobility. /6-improving LTG Duration 09/07 walking Short Term Goal (STG) Pt will be able to return to 1 mile walks at least every other day STG Duration achieved 07/25 Foundry Worker Goal (LTG) Pt will be able to return to 3 mile walks at least every other day 07/25-doing up to 2 miles, been walking more for July LTG Duration 09/07 activities Longterm Goal (LTG) Pt will be able to walk hills and be able to go down stairs reciprocally w/o inc pain greater than 1/10. 5/6-pain down stairs, hasn't done a ton of hills yet LTG Duration 09/07 Assessment Summary Assessment Pt tolerates session well, demos improved functional stability with functional squatting activities, pt demos improved static balance this date is able to tolerate standing on foam with L x 3 sec, and R x 15 seconds. Continue to focus on knee stability with dynamic balance . Physical Therapy Plan Frequency and Duration Frequency of Treatment 2x/Week Duration of treatment (weeks) 10 Plan of Care Start Date 06/29/24 Plan of Care End Date 09/07/24 Next Visit Focus/Plan Next Note Type Treatment Note Next Visit Plan KT taping, shuttle balance, hurdles w/wts, star tap, work on SL and balance, manual for improved knee tracking
--- NOTE | 2024-08-17 16:10 | PT.OTN ---
Current Diagnoses Pain in left knee (08/17/24) Physical Therapy Treatment Note PT-OP-A Visit Information Start: 06/28/24 18:59 Freq: Status: Active Protocol: Document 08/17/24 15:20 AB (Rec: 08/17/24 16:09 AB Laptop) Out-Patient Physical Therapy Visit Information Visit Information Visit Type Treatment Note Visit Note Visit [email or web address] Access Code: [email or web address] Visit Start Time 15:20 Visit Stop Time 06:03 Visit Number 9 Number of STEAM ENGINEER Visits 1 PT-OP-B Current Condition Start: 06/28/24 18:59 Freq: Status: Active Protocol: Document 06/29/24 13:03 [facility] (Rec: 06/29/24 15:00 [facility] [id number]) Current Condition History of Current Condition Onset Date about 1 year Current Complaints L knee pain History of Current Condition Pt loves to walk and typically walks 3 miles prior to this. mostly flat. It has been 2-3 months since he did. she has an orhtotic that helped but didn't fully help. She has tried hills and that really hurts. She tries to stay active by parking further away but no regimented walks. She can't do hills right now. When first stand up, after sitting for a while then L knee is uncomfortable. 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 has osteoporosis. Has a lot of metal still in L ankle and bones healed well and she rarely had pain (occ sharp). Her L big toe has very limited movement. 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 typically does yoga but stopped because so many exercises that weren't comfortable on L foot. Does functional fitness 2x/week for 1 hour but hasn't gone for the past 2-3 weeks because of her L knee. UP stairs is okay but coming down is hard. no specific onset. She did [place] in her [place] for her elephant seal protection event along w/longer distance and it flared it up. She did this a couple days and had to stop because she was hurting. Pt notes occasionally has B hip pain too Treatment Goals Patient/Caregiver Goals gets some exercises to help pain, return to walking , return to exercise class, yoga PT-OP-C Subjective Start: 06/28/24 18:59 Freq: Status: Active Protocol: Document 08/17/24 15:20 AB (Rec: 08/17/24 16:09 AB Laptop) OP-PT Subjective Patient Comments Patient Comments Rhianna reports the exercise with the band pulling the band out 2-3x a day and comments it helps so much. When questioned further patient reports hips were stiff today when she woke up. PT-OP-G Mobility & Gait Start: 06/28/24 18:59 Freq: Status: Active Protocol: Document 06/29/24 13:03 [id number] Gait Assessment Comments Gait Comments harder impact on LLE, lat lean over LLE ,dec LLE push off PT-OP-J Posture/Palpation/Skin Start: 06/28/24 18:59 Freq: Status: Active Protocol: Document 06/29/24 13:03 [facility] (Rec: 06/29/24 15:00 [facility] [id number]) Posture Evaluation Comments Posture Comments IR L femur and ER tibia, R iliac crest higher and R greater trochanter higher PT-OP-K Range of Motion Start: 06/28/24 18:59 Freq: Status: Active Protocol: Document 06/29/24 13:03 [facility] (Rec: 06/29/24 15:00 [facility] [id number]) Knee Goniometric Range of Motion Knee Left Flexion Active (degrees) 128 Extension Active (degrees) 0 PT-OP-L Special Tests Start: 06/28/24 18:59 Freq: Status: Active Protocol: Document 06/29/24 13:03 [facility] (Rec: 06/29/24 15:00 [facility] [id number]) Special Tests Knee Special Tests ligamentous Comments ACL, PCL, LCL, MCL neg jt jackson Comments tender lat Ramiro Test Comments neg PT-OP-M Strength Start: 06/28/24 18:59 Freq: Status: Active Protocol: Document 07/25/24 13:49 LR (Rec: 07/25/24 14:56 [facility] [id number]) Hip Strength Hip Manual Muscle Testing Right Flexion (L2) 3+ Fair+ Extension (S1) 4- Good- Abduction 4 Good Adduction 4+ Good+ External Rotation 4- Good- Internal Rotation 5 Normal Left Flexion (L2) 4- Good- Extension (S1) 4 Good Abduction 4 Good Adduction 4- Good- External Rotation 4- Good- Internal Rotation 5 Normal Knee Strength Knee Manual Muscle Testing Right Flexion (S2) 5 Normal Extension (L3) 5 Normal Left Flexion (S2) 4+ Good+ Extension (L3) 4+ Good+ Ankle/Foot Strength Ankle and Foot Manual Muscle Testing Right Dorsiflexion (L4) 5 Normal Plantarflexion (S1) 5 Normal Comments 20 heel raises Left Dorsiflexion (L4) 4+ Good+ Plantarflexion (S1) 4+ Good+ Comments 15 heel raises, knee pain PT-OP-Q Treatments Start: 06/28/24 18:59 Freq: Status: Active Protocol: Document 08/17/24 15:20 AB (Rec: 08/17/24 16:09 AB Laptop) Gym Equipment Shuttle Balance red Details normal YANETH and stagger stance, with visual scanning and head turns Reps/Duration one UE and no UE's Comments CGA Therapeutic Exercises Supine Exercises stretch Supine Exercise Name piriformis \HEP Side bilateral Reps/Minutes 60 sec each LE X 2 Comments Patient ed to perform due to inc stiffness performing add hip abd w/band Sitting Exercises hip ER Side bilateral Manual Therapy Treatment Taping L knee Body Location quad Y strip supe to inf med and lat, I strip for tracking, Treatment Focus patellar tracking Type of Tape Kinesio Tape Skin Inspection WNL Comments 2 I strips to unload fat pad Manual Techniques MET for R AI L PI and pubic shot gunl Reps/Duration 6 X 6 seconds eaach Neuro Re-Education Treatment Balance Activities step up taps Details 6 inch step standing on foam Reps/Duration X 15 Comments CGA tandem stepping Reps/Duration 10 feet X 6 Comments supervision hurdles Reps/Duration 10 feet X 4 Comments CGA PT-OP-T Assessment and Plan Start: 06/28/24 18:59 Freq: Status: Active Protocol: Document 08/17/24 15:20 AB (Rec: 08/17/24 16:09 AB Laptop) Physical Therapy Assessment Goals strength Short Term Goal (STG) Pt will be indep w/HEP 5/6-improving STG Duration 5/10 Custodial Goal (LTG) Pt will score at least 4+/5 on all BLE MMT to show improved stability and mobility. 5/6-improving LTG Duration 09/07 walking Short Term Goal (STG) Pt will be able to return to 1 mile walks at least every other day STG Duration achieved 5/6 Custodial Goal (LTG) Pt will be able to return to 3 mile walks at least every other day 5/6-doing up to 2 miles, been walking more for Carolinajuly LTG Duration 09/07 activities Adjuster Arbitrator Goal (LTG) Pt will be able to walk hills and be able to go down stairs reciprocally w/o inc pain greater than 1/10. 5/6-pain down stairs, hasn't done a ton of hills yet LTG Duration 09/07 Assessment Summary Assessment Patient reports having no pain end of session. Good fred to balance exercises, no shaking on balance shuttle in normal YANETH, some with stagger during head turns and scanning. Physical Therapy Plan Frequency and Duration Frequency of Treatment 2x/Week Duration of treatment (weeks) 10 Plan of Care Start Date 06/29/24 Plan of Care End Date 09/07/24 Therapeutic Interventions Therapeutic Interventions Balance Training,Gait Training ,Home Exercise Program,Joint Mobilizations,Manual Therapy, Neuromuscular Re-education, Patient/Caregiver Education, Self-Care/Home Management,Soft Tissue Mobilization,Taping, Therapeutic Activities, Therapeutic Exercises Modalities Cold Pack/Ice Massage,Electric Stimulation,Hot Packs, Infrared Therapy,Ultrasound Next Visit Focus/Plan Next Note Type Treatment Note Next Visit Plan KT taping, shuttle balance, hurdles w/wts, star tap, work on SL and balance, manual for improved knee tracking
--- NOTE | 2024-08-29 14:58 | PT.OTN ---
Addendum entered and electronically signed by Keila Martini, PT 08/29/24 15:26: PT direct supervision and direction to student PT Мария Burt throughout session Original Note: Current Diagnoses Pain in left knee (08/29/24) Physical Therapy Treatment Note PT-OP-A Visit Information Start: 06/28/24 18:59 Freq: Status: Active Protocol: Document 08/29/24 13:06 GG (Rec: 08/29/24 14:22 GG [id number]) Out-Patient Physical Therapy Visit Information Visit Information Visit Type Progress Note Visit Start Time 13:05 Visit Stop Time 13:50 Visit Number 10 Number of APPLICATIONS SUPPORT ANALYST Visits 0 PT-OP-B Current Condition Start: 06/28/24 18:59 Freq: Status: Active Protocol: Document 06/29/24 13:03 [facility] (Rec: 06/29/24 15:00 [facility] [id number]) Current Condition History of Current Condition Onset Date about 1 year Current Complaints L knee pain History of Current Pt loves to walk and typically walks 3 miles prior to Condition this. mostly flat. It has been 2-3 months since he did . she has an orhtotic that helped but didn't fully help . She has tried hills and that really hurts. She tries to stay active by parking further away but no regimented walks. She can't do hills right now. When first stand up, after sitting for a while then L knee is uncomfortable. 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 has osteoporosis. Has a lot of metal still in L ankle and bones healed well and she rarely had pain (occ sharp). Her L big toe has very limited movement. 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 typically does yoga but stopped because so many exercises that weren' t comfortable on L foot. Does functional fitness 2x/ week for 1 hour but hasn't gone for the past 2-3 weeks because of her L knee. UP stairs is okay but coming down is hard. no specific onset. She did have [place] in her [place] for her elephant seal protection event along w/longer distance and it flared it up. She did this a couple days and had to stop because she was hurting. Pt notes occasionally has B hip pain too Treatment Goals Patient/Caregiver gets some exercises to help pain, return to walking , Goals return to exercise class, yoga PT-OP-C Subjective Start: 06/28/24 18:59 Freq: Status: Active Protocol: Document 08/29/24 13:06 GG (Rec: 08/29/24 14:22 GG [id number]) OP-PT Subjective Patient Comments Patient Comments Pt reports that she has been doing her exercises everyday and going to her exercise classes. Has been walking on the beach more recently. Noted that some of the exercises from her classes are causing R knee pain. PT-OP-G Mobility & Gait Start: 06/28/24 18:59 Freq: Status: Active Protocol: Document 06/29/24 13:03 [facility] (Rec: 06/29/24 15:00 [facility] [id number]) OP Gait Assessment Comments Gait Comments harder impact on LLE, lat lean over LLE ,dec LLE push off PT-OP-J Posture/Palpation/Skin Start: 06/28/24 18:59 Freq: Status: Active Protocol: Document 06/29/24 13:03 [facility] (Rec: 06/29/24 15:00 [facility] [id number]) Posture Evaluation Comments Posture Comments IR L femur and ER tibia, R iliac crest higher and R greater trochanter higher PT-OP-K Range of Motion Start: 06/28/24 18:59 Freq: Status: Active Protocol: Document 06/29/24 13:03 [facility] (Rec: 06/29/24 15:00 [facility] [id number]) Knee Goniometric Range of Motion Knee Left Flexion Active ( 128 degrees) Extension Active ( 0 degrees) PT-OP-L Special Tests Start: 06/28/24 18:59 Freq: Status: Active Protocol: Document 06/29/24 13:03 [facility] (Rec: 06/29/24 15:00 [facility] [id number]) Special Tests Knee Special Tests ligamentous Comments ACL, PCL, LCL, MCL neg jt jackson Comments tender lat Ramiro Test Comments neg PT-OP-M Strength Start: 06/28/24 18:59 Freq: Status: Active Protocol: Document 08/29/24 13:06 GG (Rec: 08/29/24 14:22 GG [id number]) Hip Strength Hip Manual Muscle Testing Right Flexion (L2) 4- Good- Extension (S1) 4 Good Abduction 4 Good Adduction 4+ Good+ External Rotation 4+ Good+ Internal Rotation 5 Normal Left Flexion (L2) 4- Good- Extension (S1) 4 Good Abduction 4 Good Adduction 5 Normal External Rotation 4+ Good+ Internal Rotation 5 Normal Knee Strength Knee Manual Muscle Testing Right Flexion (S2) 5 Normal Extension (L3) 5 Normal Left Flexion (S2) 4+ Good+ Extension (L3) 4+ Good+ Ankle/Foot Strength Ankle and Foot Manual Muscle Testing Right Dorsiflexion (L4) 5 Normal Plantarflexion (S1) 5 Normal Left Dorsiflexion (L4) 5 Normal Plantarflexion (S1) 5 Normal PT-OP-Q Treatments Start: 06/28/24 18:59 Freq: Status: Active Protocol: Document 08/29/24 13:06 GG (Rec: 08/29/24 14:22 GG [id number]) Therapeutic Exercises Sitting Exercises seated abd with band Sitting Exercise w/ leg lift, also done in standing Name Resistance plum band Reps/Minutes 10x Comments did before and after manual tx Other Exercises testing Other Exercise Name B MMTs Manual Therapy Treatment Soft Tissue Mobilization TFL Body Location L Mobilization Type Sustained Pressure Body Position Supine Comments c/r w/ hip flexion Joint Mobilizations hip Comments 1. side-lying supported in ABD, inf/med c/r adduction on R for improved ability to perform exercises 2. supine inf glide c/r hip extension on R for improved ability to perform exercises 3. supine distraction in hip flexion on L moving into ABD Taping L knee Body Location quad Y strip supe to inf med and lat, I strip for tracking, Treatment Focus patellar tracking Type of Tape Kinesio Tape Skin Inspection WNL PT-OP-T Assessment and Plan Start: 06/28/24 18:59 Freq: Status: Active Protocol: Document 08/29/24 13:06 GG (Rec: 08/29/24 14:22 GG [id number]) Physical Therapy Assessment Goals strength Short Term Goal (STG Pt will be indep w/HEP ) 5/6-improving STG Duration 08/29 - achieved and advancing as able Longterm Goal (LTG) Pt will score at least 4+/5 on all BLE MMT to show improved stability and mobility. 5/6-improving LTG Duration 09/26/24 walking Short Term Goal (STG Pt will be able to return to 1 mile walks at least ) every other day STG Duration achieved 07/25 Longterm Goal (LTG) Pt will be able to return to 3 mile walks at least every other day 5/6-doing up to 2 miles, been walking more for [place] July 25 - walking 2.5-2.75 miles LTG Duration 09/26/24 activities Dam Tender Assistant Goal (LTG) Pt will be able to walk hills and be able to go down stairs reciprocally w/o inc pain greater than 03/31. 07/25-pain down stairs, hasn't done a ton of hills yet 08/29 - has done small hills w/ no issues, have not tried bigger hills, no change w/stairs LTG Duration 09/26/24 Assessment Summary Assessment Pt has seen good improvement and has improved in overall ambulation ability, but cont to experience pain and difficulty w/ descending stairs, walking on hills and unable to walk 3 miles which is one of her goals. Pt is independent and motivated w/ doing her HEP, but will cont from PT to ensure proper form and to further assess and treat so she can have an improve ability to ambulate longer distances and perform stairs w/out pain . Physical Therapy Plan Frequency and Duration Frequency of 1x/Week Treatment Duration of 4 treatment (weeks) Plan of Care Start 08/29/24 Date Plan of Care End 09/26/24 Date Next Visit Focus/Plan Next Note Type Treatment Note Next Visit Plan assess descending stairs and work on improving ability to do (manually/exercise), cont w/ taping as needed, cont balance and LE strengthening
--- NOTE | 2024-08-29 14:58 | PT.OPPOC ---
Physical, Occupational & Speech Therapy At [facility] Current Diagnoses Pain in left knee (08/29/24) Visit Care Team Role Provider Type Keila Moreno MD Attending Provider Physician Family Provider Primary Care Provider Referring Provider Specialty: Family Practice Address: [address] [place] [address], [facility] [place], [address] Email: [email or web address] Plan Of Care PT-OP-B Current Condition Start: 06/28/24 18:59 Freq: Status: Active Protocol: Document 06/29/24 13:03 [facility] (Rec: 06/29/24 15:00 [facility] [id number]) Current Condition History of Current Condition Onset Date about 1 year Current Complaints L knee pain History of Current Pt loves to walk and typically walks 3 miles prior to Condition this. mostly flat. It has been 2-3 months since he did . she has an orhtotic that helped but didn't fully help . She has tried hills and that really hurts. She tries to stay active by parking further away but no regimented walks. She can't do hills right now. When first stand up, after sitting for a while then L knee is uncomfortable. 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 has osteoporosis. Has a lot of metal still in L ankle and bones healed well and she rarely had pain (occ sharp). Her L big toe has very limited movement. 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 typically does yoga but stopped because so many exercises that weren' t comfortable on L foot. Does functional fitness 2x/ week for 1 hour but hasn't gone for the past 2-3 weeks because of her L knee. UP stairs is okay but coming down is hard. no specific onset. She did [place] in her [place] for her elephant seal protection event along w/longer distance and it flared it up. She did this a couple days and had to stop because she was hurting. Pt notes occasionally has B hip pain too Treatment Goals Patient/Caregiver gets some exercises to help pain, return to walking , Goals return to exercise class, yoga PT-OP-T Assessment and Plan Start: 06/28/24 18:59 Freq: Status: Active Protocol: Document 08/29/24 13:06 GG (Rec: 08/29/24 14:22 GG [id number]) Physical Therapy Assessment Goals strength Short Term Goal (STG Pt will be indep w/HEP ) 07/25-improving STG Duration 08/29 - achieved and advancing as able Senior Care Goal (LTG) Pt will score at least 4+/5 on all BLE MMT to show improved stability and mobility. 5/6-improving LTG Duration 09/26/24 walking Short Term Goal (STG Pt will be able to return to 1 mile walks at least ) every other day STG Duration achieved 07/25 Senior Care Goal (LTG) Pt will be able to return to 3 mile walks at least every other day 07/25-doing up to 2 miles, been walking more for July 25 - walking 2.5-2.75 miles LTG Duration 09/26/24 activities Senior Care Goal (LTG) Pt will be able to walk hills and be able to go down stairs reciprocally w/o inc pain greater than /10. 07/25-pain down stairs, hasn't done a ton of hills yet 08/29 - has done small hills w/ no issues, have not tried bigger hills, no change w/stairs LTG Duration 09/26/24 Assessment Summary Assessment Pt has seen good improvement and has improved in overall ambulation ability, but cont to experience pain and difficulty w/ descending stairs, walking on hills and unable to walk 3 miles which is one of her goals. Pt is independent and motivated w/ doing her HEP, but will cont from PT to ensure proper form and to further assess and treat so she can have an improve ability to ambulate longer distances and perform stairs w/out pain . Physical Therapy Plan Frequency and Duration Frequency of 1x/Week Treatment Duration of 4 treatment (weeks) Plan of Care Start 08/29/24 Date Plan of Care End 09/26/24 Date Next Visit Focus/Plan Next Note Type Treatment Note Next Visit Plan assess descending stairs and work on improving ability to do (manually/exercise), cont w/ taping as needed, cont balance and LE strengthening Plan of Care Dates Plan of Care Start Date 08/29/24 Plan of Care End Date 09/26/24 Electronically Signed by: Мария Burt 08/29/24 2538 If you are in agreement with this Plan of Care, please return a signed and dated copy. I have reviewed this Plan of Care and certify that the skilled therapy services above are required to meet the patient?s needs. Physician Signature Date Printed Name and Credentials Clinical Instructor Signature Printed Name and Credentials
--- NOTE | 2024-08-31 18:46 | PT.OTN ---
Addendum entered and electronically signed by Keila Martini, PT 09/04/24 09:50: PT direct supervision and direction to student PT Мария Burt throughout session Original Note: Current Diagnoses Pain in left knee (08/31/24) Physical Therapy Treatment Note PT-OP-A Visit Information Start: 06/28/24 18:59 Freq: Status: Active Protocol: Document 08/31/24 13:01 GG (Rec: 08/31/24 13:50 GG [id number]) Out-Patient Physical Therapy Visit Information Visit Information Visit Type Treatment Note Visit Start Time 13:01 Visit Stop Time 13:50 Visit Number 11 Number of FIRE OPERATIONS FORESTER Visits 0 PT-OP-B Current Condition Start: 06/28/24 18:59 Freq: Status: Active Protocol: Document 06/29/24 13:03 [facility] (Rec: 06/29/24 15:00 [facility] [id number]) Current Condition History of Current Condition Onset Date about 1 year Current Complaints L knee pain History of Current Pt loves to walk and typically walks 3 miles prior to Condition this. mostly flat. It has been 2-3 months since he did . she has an orhtotic that helped but didn't fully help . She has tried hills and that really hurts. She tries to stay active by parking further away but no regimented walks. She can't do hills right now. When first stand up, after sitting for a while then L knee is uncomfortable. 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 has osteoporosis. Has a lot of metal still in L ankle and bones healed well and she rarely had pain (occ sharp). Her L big toe has very limited movement. 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 typically does yoga but stopped because so many exercises that weren' t comfortable on L foot. Does functional fitness 2x/ week for 1 hour but hasn't gone for the past 2-3 weeks because of her L knee. UP stairs is okay but coming down is hard. no specific onset. She did have to go [place] in her [place] for her elephant seal protection event along w/longer distance and it flared it up. She did this a couple days and had to stop because she was hurting. Pt notes occasionally has B hip pain too Treatment Goals Patient/Caregiver gets some exercises to help pain, return to walking , Goals return to exercise class, yoga PT-OP-C Subjective Start: 06/28/24 18:59 Freq: Status: Active Protocol: Document 08/31/24 13:01 GG (Rec: 08/31/24 13:51 GG [id number]) OP-PT Subjective Patient Comments Patient Comments Pt reports that everything is going well. Went to post- office yesterday and has difficulty going down the stairs there. Notes that there is slight knee pain, but mostly feels unsteady. PT-OP-G Mobility & Gait Start: 06/28/24 18:59 Freq: Status: Active Protocol: Document 06/29/24 13:03 [facility] (Rec: 06/29/24 15:00 [facility] [id number]) OP Gait Assessment Comments Gait Comments harder impact on LLE, lat lean over LLE ,dec LLE push off PT-OP-J Posture/Palpation/Skin Start: 06/28/24 18:59 Freq: Status: Active Protocol: Document 06/29/24 13:03 [facility] (Rec: 06/29/24 15:00 [facility] [id number]) Posture Evaluation Comments Posture Comments IR L femur and ER tibia, R iliac crest higher and R greater trochanter higher PT-OP-K Range of Motion Start: 06/28/24 18:59 Freq: Status: Active Protocol: Document 06/29/24 13:03 [facility] (Rec: 06/29/24 15:00 [facility] [id number]) Knee Goniometric Range of Motion Knee Left Flexion Active ( 128 degrees) Extension Active ( 0 degrees) PT-OP-L Special Tests Start: 06/28/24 18:59 Freq: Status: Active Protocol: Document 06/29/24 13:03 [facility] (Rec: 06/29/24 15:00 [facility] [id number]) Special Tests Knee Special Tests ligamentous Comments ACL, PCL, LCL, MCL neg jt jackson Comments tender lat Ramiro Test Comments neg PT-OP-M Strength Start: 06/28/24 18:59 Freq: Status: Active Protocol: Document 08/29/24 13:06 GG (Rec: 08/29/24 14:22 GG [id number]) Hip Strength Hip Manual Muscle Testing Right Flexion (L2) 4- Good- Extension (S1) 4 Good Abduction 4 Good Adduction 4+ Good+ External Rotation 4+ Good+ Internal Rotation 5 Normal Left Flexion (L2) 4- Good- Extension (S1) 4 Good Abduction 4 Good Adduction 5 Normal External Rotation 4+ Good+ Internal Rotation 5 Normal Knee Strength Knee Manual Muscle Testing Right Flexion (S2) 5 Normal Extension (L3) 5 Normal Left Flexion (S2) 4+ Good+ Extension (L3) 4+ Good+ Ankle/Foot Strength Ankle and Foot Manual Muscle Testing Right Dorsiflexion (L4) 5 Normal Plantarflexion (S1) 5 Normal Left Dorsiflexion (L4) 5 Normal Plantarflexion (S1) 5 Normal PT-OP-Q Treatments Start: 06/28/24 18:59 Freq: Status: Active Protocol: Document 08/31/24 13:01 GG (Rec: 08/31/24 13:50 GG [id number]) Gym Equipment Shuttle Recovery leg press Details DL Resistance 37# Reps/Time 15x Therapeutic Exercises Supine Exercises stretch Supine Exercise Name piriformis (knee to opp shoulder) Side bilateral Reps/Minutes 20 sec Sitting Exercises Self STM Sitting Exercise rolling pin to lateral quad Name Side bilateral Reps/Minutes 20 sec Standing Exercises reaches Standing Exercise fwd reach w/ SL squat Name Side bilateral Reps/Minutes 20x Comments cue to keep standing leg aligned hip hikes Standing Exercise off 4 step Name Reps/Minutes 25x B Comments max cueing for instruction and performance step Comments 1. step up and over 8 10x 2. stairs 5x (3 steps ea) Manual Therapy Treatment Consent Patient gave verbal Yes consent for manual treatment Soft Tissue Mobilization quad Body Location L quad, ITB Mobilization Type Rolling Intensity/Depth Moderate Body Position Supine Joint Mobilizations hip Comments B side-lying supported in ABD, inf/med c/r adduction for improved ability to perform exercises patellofemoral Joint sup, inf, med B Grade III PT-OP-T Assessment and Plan Start: 06/28/24 18:59 Freq: Status: Active Protocol: Document 08/31/24 13:01 GG (Rec: 08/31/24 13:50 GG [id number]) Physical Therapy Assessment Goals strength Short Term Goal (STG Pt will be indep w/HEP ) 5/6-improving STG Duration 08/29 - achieved and advancing as able Usp Goal (LTG) Pt will score at least 4+/5 on all BLE MMT to show improved stability and mobility. 07/25-improving LTG Duration 09/26/24 walking Short Term Goal (STG Pt will be able to return to 1 mile walks at least ) every other day STG Duration achieved 07/25 Vacuum Frame Operator Goal (LTG) Pt will be able to return to 3 mile walks at least every other day 07/25-doing up to 2 miles, been walking more for [place] July 25 - walking 2.5-2.75 miles LTG Duration 09/26/24 activities Vacuum Frame Operator Goal (LTG) Pt will be able to walk hills and be able to go down stairs reciprocally w/o inc pain greater than 03/31. 07/25-pain down stairs, hasn't done a ton of hills yet 08/29 - has done small hills w/ no issues, have not tried bigger hills, no change w/stairs LTG Duration 09/26/24 Assessment Summary Assessment Focused on stairs and exercises that work on controlling eccentric quad and hip stabilization. Pt required max cueing when attempting hip hikes to ensure proper form and avoiding strain on her back. At end of session, pt demonstrated better understanding of exercises, but will plan to revisit. Physical Therapy Plan Frequency and Duration Frequency of 1x/Week Treatment Duration of 4 treatment (weeks) Plan of Care Start 08/29/24 Date Plan of Care End 09/26/24 Date Next Visit Focus/Plan Next Note Type Treatment Note Next Visit Plan assess descending stairs and work on improving ability to do (manually/exercise), cont w/ taping as needed, cont balance and LE strengthening, assess forward taps and retry hip hikes (add to HEP if good retention)
--- NOTE | 2024-09-19 17:46 | PT.OPPOC ---
Physical, Occupational & Speech Therapy At [facility] Current Diagnoses Pain in left knee (09/19/24) Visit Care Team Role Provider Type Keila Moreno MD Attending Provider Physician Family Provider Primary Care Provider Referring Provider Specialty: Family Practice Address: [address] [place] [address], [facility] [place], [address] Email: [email or web address] Plan Of Care PT-OP-B Current Condition Start: 06/28/24 18:59 Freq: Status: Active Protocol: Document 06/29/24 13:03 [facility] (Rec: 06/29/24 15:00 [facility] [id number]) Current Condition History of Current Condition Onset Date about 1 year Current Complaints L knee pain History of Current Pt loves to walk and typically walks 3 miles prior to Condition this. mostly flat. It has been 2-3 months since he did . she has an orhtotic that helped but didn't fully help . She has tried hills and that really hurts. She tries to stay active by parking further away but no regimented walks. She can't do hills right now. When first stand up, after sitting for a while then L knee is uncomfortable. 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 has osteoporosis. Has a lot of metal still in L ankle and bones healed well and she rarely had pain (occ sharp). Her L big toe has very limited movement. 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 typically does yoga but stopped because so many exercises that weren' t comfortable on L foot. Does functional fitness 2x/ week for 1 hour but hasn't gone for the past 2-3 weeks because of her L knee. UP stairs is okay but coming down is hard. no specific onset. She did have to go [place] in her boots for her elephant seal protection event along w/longer distance and it flared it up. She did this a couple days and had to stop because she was hurting. Pt notes occasionally has B hip pain too Treatment Goals Patient/Caregiver gets some exercises to help pain, return to walking , Goals return to exercise class, yoga PT-OP-T Assessment and Plan Start: 06/28/24 18:59 Freq: Status: Active Protocol: Document 09/19/24 16:58 [facility] (Rec: 09/21/24 17:46 [facility] [id number]) Physical Therapy Assessment Goals strength Short Term Goal (STG Pt will be indep w/HEP ) 07/25-improving STG Duration 08/29 - achieved and advancing as able Senior Living Goal (LTG) Pt will score at least 4+/5 on all BLE MMT to show improved stability and mobility. 07/25-improving 09/21-n/t but pt progressing w/exercises LTG Duration 10/18/24 walking Short Term Goal (STG Pt will be able to return to 1 mile walks at least ) every other day STG Duration achieved 07/25 Senior Living Goal (LTG) Pt will be able to return to 3 mile walks at least every other day 07/25-doing up to 2 miles, been walking more for [place] July 25 - walking 2.5-2.75 miles 09/21-cont to inc walks, more limited by RLE lately LTG Duration 09/26/24 activities Senior Living Goal (LTG) Pt will be able to walk hills and be able to go down stairs reciprocally w/o inc pain greater than 1/10. 07/25-pain down stairs, hasn't done a ton of hills yet 08/29 - has done small hills w/ no issues, have not tried bigger hills, no change w/stairs 09/21-overall improving w/hills, down stairs can still be painful LTG Duration 10/18 Assessment Summary Assessment pt progressing overall with PT and has made improvements in her knee pain and functional ability.S he was most limited today by RLE and has primary follow up re: this and may require further PT for this. She would benefit from cont PT for L knee pain to fully return to activity w/o inc pain. Physical Therapy Plan Frequency and Duration Frequency of 1x/Week Treatment Duration of 4 treatment (weeks) Plan of Care Start 09/19/24 Date Plan of Care End 10/18/24 Date Therapeutic Interventions Therapeutic Balance Training,Gait Training,Home Exercise Program, Interventions Joint Mobilizations,Manual Therapy,Neuromuscular Re- education,Patient/Caregiver Education,Self-Care/Home Management,Soft Tissue Mobilization,Taping,Therapeutic Activities,Therapeutic Exercises Modalities Cold Pack/Ice Massage,Electric Stimulation,Hot Packs, Infrared Therapy,Ultrasound Next Visit Focus/Plan Next Note Type Treatment Note Next Visit Plan POSSIBLY RE EVAL assess descending stairs and work on improving ability to do (manually/exercise), cont w/ taping as needed, cont balance and LE strengthening, assess forward taps and retry hip hikes (add to HEP if good retention) Plan of Care Dates Plan of Care Start Date 09/19/24 Plan of Care End Date 10/18/24 Electronically Signed by: Keila Martnii, PT 09/21/24 [id number] If you are in agreement with this Plan of Care, please return a signed and dated copy. I have reviewed this Plan of Care and certify that the skilled therapy services above are required to meet the patient?s needs. Physician Signature Date Printed Name and Credentials Clinical Instructor Signature Printed Name and Credentials
--- NOTE | 2024-10-09 18:00 | PT-OP ANOTE ---
Pt called per her request and cancellation of last visit. L knee doing well but RLE very painfulw hich is why she cancelled. She sees ortho on 10/17 but does not have further PT order. Encouraged pt to call doctor's office to request referral for RLE for PT which would be a new case. PT and pt in agreement about closing out L knee case as this is doing well.
--- NOTE | 2024-10-10 16:46 | PT.OPDS ---
Current Diagnoses Pain in left knee (09/19/24) Visit Care Team Role Provider Type Keila Moreno MD Attending Provider Physician Family Provider Primary Care Provider Referring Provider Specialty: Family Practice Address: [address] [place] [address], [address], [place], [address] Email: [email or web address] Visit Number Visit Number 12 ( PN due 09/28/2024) Discharge Summary PT-OP-B Current Condition Start: 06/28/24 18:59 Freq: Status: Active Protocol: Document 06/29/24 13:03 [facility] (Rec: 06/29/24 15:00 [facility] [id number]) Current Condition History of Current Condition Onset Date about 1 year Current Complaints L knee pain History of Current Pt loves to walk and typically walks 3 miles prior to Condition this. mostly flat. It has been 2-3 months since he did . she has an orhtotic that helped but didn't fully help . She has tried hills and that really hurts. She tries to stay active by parking further away but no regimented walks. She can't do hills right now. When first stand up, after sitting for a while then L knee is uncomfortable. 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 has osteoporosis. Has a lot of metal still in L ankle and bones healed well and she rarely had pain (occ sharp). Her L big toe has very limited movement. 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 typically does yoga but stopped because so many exercises that weren' t comfortable on L foot. Does functional fitness 2x/ week for 1 hour but hasn't gone for the past 2-3 weeks because of her L knee. UP stairs is okay but coming down is hard. no specific onset. She did have to go down a steep path at beach in her boots for her elephant seal protection event along w/longer distance and it flared it up. She did this a couple days and had to stop because she was hurting. Pt notes occasionally has B hip pain too Treatment Goals Patient/Caregiver gets some exercises to help pain, return to walking , Goals return to exercise class, yoga PT-OP-C Subjective Start: 06/28/24 18:59 Freq: Status: Active Protocol: Document 09/19/24 12:59 AB (Rec: 09/19/24 13:48 AB Laptop) OP-PT Subjective Patient Comments Patient Comments Patient report inc pain R LE post rolling in bed had feeling R LE of not feeling right, the in the morning she turned foot and had pain buttocks to ankle. Patient reports she has an MD appointment, but not until next week. PT, Loco Martini into session and has advised to continue with hip stretches for today, and self glute STM ) PT-OP-G Mobility & Gait Start: 06/28/24 18:59 Freq: Status: Active Protocol: Document 06/29/24 13:03 [facility] (Rec: 06/29/24 15:00 [facility] [id number]) OP Gait Assessment Comments Gait Comments harder impact on LLE, lat lean over LLE ,dec LLE push off PT-OP-J Posture/Palpation/Skin Start: 06/28/24 18:59 Freq: Status: Active Protocol: Document 06/29/24 13:03 [facility] (Rec: 06/29/24 15:00 [facility] [id number]) Posture Evaluation Comments Posture Comments IR L femur and ER tibia, R iliac crest higher and R greater trochanter higher PT-OP-K Range of Motion Start: 06/28/24 18:59 Freq: Status: Active Protocol: Document 06/29/24 13:03 [facility] (Rec: 06/29/24 15:00 [facility] [id number]) Knee Goniometric Range of Motion Knee Left Flexion Active ( 128 degrees) Extension Active ( 0 degrees) PT-OP-L Special Tests Start: 06/28/24 18:59 Freq: Status: Active Protocol: Document 06/29/24 13:03 [facility] (Rec: 06/29/24 15:00 [facility] [id number]) Special Tests Knee Special Tests ligamentous Comments ACL, PCL, LCL, MCL neg jt jackson Comments tender lat Ramiro Test Comments neg PT-OP-M Strength Start: 06/28/24 18:59 Freq: Status: Active Protocol: Document 08/29/24 13:06 GG (Rec: 08/29/24 14:22 GG [id number]) Hip Strength Hip Manual Muscle Testing Right Flexion (L2) 4- Good- Extension (S1) 4 Good Abduction 4 Good Adduction 4+ Good+ External Rotation 4+ Good+ Internal Rotation 5 Normal Left Flexion (L2) 4- Good- Extension (S1) 4 Good Abduction 4 Good Adduction 5 Normal External Rotation 4+ Good+ Internal Rotation 5 Normal Knee Strength Knee Manual Muscle Testing Right Flexion (S2) 5 Normal Extension (L3) 5 Normal Left Flexion (S2) 4+ Good+ Extension (L3) 4+ Good+ Ankle/Foot Strength Ankle and Foot Manual Muscle Testing Right Dorsiflexion (L4) 5 Normal Plantarflexion (S1) 5 Normal Left Dorsiflexion (L4) 5 Normal Plantarflexion (S1) 5 Normal PT-OP-T Assessment and Plan Start: 06/28/24 18:59 Freq: Status: Active Protocol: Document 10/10/24 16:44 [facility] (Rec: 10/10/24 16:46 [facility] [id number]) Physical Therapy Assessment Goals strength Short Term Goal (STG Pt will be indep w/HEP ) 07/25-improving STG Duration 08/29 - achieved and advancing as able Snf Goal (LTG) Pt will score at least 4+/5 on all BLE MMT to show improved stability and mobility. 07/25-improving 09/21-n/t but pt progressing w/exercises LTG Duration 10/18/24 walking Short Term Goal (STG Pt will be able to return to 1 mile walks at least ) every other day STG Duration achieved 07/25 Engravings Polisher Goal (LTG) Pt will be able to return to 3 mile walks at least every other day 07/25-doing up to 2 miles, been walking more for [place] July 25 - walking 2.5-2.75 miles 09/21-cont to inc walks, more limited by RLE lately LTG Duration 09/26/24 activities Engravings Polisher Goal (LTG) Pt will be able to walk hills and be able to go down stairs reciprocally w/o inc pain greater than /. 07/25-pain down stairs, hasn't done a ton of hills yet 08/29 - has done small hills w/ no issues, have not tried bigger hills, no change w/stairs 09/21-overall improving w/hills, down stairs can still be painful LTG Duration 10/18 Assessment Summary Assessment pt called 10/09 per her request and cancellation of last visit. L knee doing well but RLE very painful which is why she cancelled. She sees ortho on 10/17 but does not have further PT order. Encouraged pt to call doctor's office to request referral for RLE for PT which would be a new case. PT and pt in agreement about closing out L knee case as this is doing well. She made excellent progress towards her goals w/PT and had much dec knee pain L but is now limited by RLE w/functional activities. Pt to follow up w/MD re: this. Physical Therapy Plan Discharge Physical Therapy Discharge Reasons Goals Met Discharge Comments goals mostly met and pt had inc RLE pain unrelated so discussing w/MD re: referral for this instead
== END 2024-10-11 13:13 | disposition home or self-care (01) ==
LOC: PHYS 13:00
PROVIDERS: Family Provider Family Medicine; PCP Family Medicine; Referring Provider Family Medicine; Visit Provider Family Medicine
DX: M25.562 Pain in left knee (principal)
CPT/HCPCS: 97110; 97112; 97140; 97162; 97530; 97535

== ENCOUNTER → 2024-09-29 13:32 | Outpatient (CLI) | payer MEDICARE, OTHER, SELFPAY ==
--- NOTE | 2024-09-29 13:36 | DI.RAD.S_ITS ---
PROCEDURE: XR HIP W PEL IF DONE RT 2V INDICATIONS: pain TECHNIQUE: AP pelvis with lateral view(s) of the right hip(s). COMPARISON: None. FINDINGS: Bones: No fractures or dislocations. Moderate osteoarthritic degenerative change of the right hip includes joint space narrowing, marginal osteophytosis and acetabular subchondral sclerosis. Pelvic ring appears intact. No suspicious bony lesions. Degenerative changes of the lower lumbar spine. Soft tissues: The visualized bowel gas pattern is normal. No suspicious soft tissue calcifications. IMPRESSION: Degenerative change of the right hip without evidence of acute osseous abnormality. Dictated by: James Hartley M.D. on 10/01/2024 at 18:32 Approved by: James Hartley M.D. on 10/01/2024 at 18:33
--- NOTE | 2024-09-29 13:36 | DI.RAD.S_ITS ---
PROCEDURE: XR KNEE RT 3V INDICATIONS: pain TECHNIQUE: 3 views of the knee were acquired. COMPARISON: [facility], CR, XR KNEE LT 3V, 06/16/2023, 10:52. FINDINGS: Bones: Hardware status post total knee arthroplasty without evidence of complication. No fractures or dislocations. No suspicious bony lesions. Soft tissues: No joint effusion. No suspicious soft tissue calcifications. IMPRESSION: No evidence of acute osseous abnormality or hardware complication status post total knee arthroplasty. Dictated by: James Hartley M.D. on 10/01/2024 at 18:33 Approved by: James Hartley M.D. on 10/01/2024 at 18:34
== END ==
PROVIDERS: PCP Family Medicine; Referring Provider Family Medicine; Visit Provider Family Medicine
DX: M47.816 Spondylosis without myelopathy or radiculopathy, lumbar region (principal); Z96.651 Presence of right artificial knee joint; R52 Pain, unspecified
CPT/HCPCS: 73502; 73562

== ENCOUNTER 2025-03-06 14:30 | Outpatient (RCR) | payer MEDICARE, OTHER, SELFPAY ==
--- NOTE | 2024-11-23 09:38 | PT.OPPOC ---
Physical, Occupational & Speech Therapy At [facility] Current Diagnoses Unspecified disorder of synovium and tendon, right thigh (11/23/24) Visit Care Team Role Provider Type Keila Moreno MD Family Provider Physician Primary Care Provider Specialty: Family Practice Address: [address] [place] [address], [facility] [place], [address] Email: [email or web address] Ronald Yanes MD Attending Provider Physician Referring Provider Specialty: Orthopedics Orthopedic Surgery Address: [address] [place] [address], [address] Fax: Email: [email or web address] Plan Of Care PT OP: Lower Back/Lower Extremity Start: 11/16/24 09:16 Freq: Status: Active Protocol: Document 11/23/24 07:36 [facility] (Rec: 11/23/24 09:38 [facility] [id number]) Out-Patient Physical Therapy Visit Information Visit Information Visit Type Initial Evaluation Visit Start Time 08:25 Visit Stop Time 09:20 Visit Number 1 Number of ONBOARDING SPECIALIST Visits 0 Progress Note Due 12/23/24 Current Condition History of Current Condition Onset Date mid august Current Complaints R lat thigh History of Current Pt has R thigh pain. Woke up 2 weeks ago and sciatic Condition pain was just gone. Saw ortho who said hip flexors and sciatic pain d/t piriformis. She had been doing racket ball to wall which has helped. Did PT for L knee in past and brought her exercises and wants to keep things flexible and know what to do. Pt was sitting the other day and had legs together and really quickly turned to L then could feel into R lat hip and down leg. Pt reports she has adapted to avoid pain. notices she does some lat leaning when tired. Since sciatica started, has not done her yoga. Laying on R side, gets pain on R leg. when stands up from car, feels weird in R leg and has to stand and stretch up at least 10 sec . Treatment Goals Patient/Caregiver get HEP to avoid this to worsen, get back to yoga/ Goals flexibility, be able to drive long (15 to 20 min at this time pain starts) and not have pain when stand up, improve balance Patient Questionnaires Lower Extremity Functional Scale LEFS Score 52 Balance Tests Single Limb Standing Single Limb- Right >30 sec Single Limb- Left 10 sec Hip Strength Hip Manual Muscle Testing Right Flexion (L2) 3+ Fair+ Extension (S1) 4 Good Abduction 3+ Fair+ Adduction 4- Good- External Rotation 4- Good- Internal Rotation 3+ Fair+ Comments mild discomfort IR/ER, flex Left Flexion (L2) 4- Good- Extension (S1) 4 Good Abduction 4 Good Adduction 4+ Good+ External Rotation 4 Good Internal Rotation 4 Good Knee Strength Knee Manual Muscle Testing Right Flexion (S2) 5 Normal Extension (L3) 5 Normal Left Flexion (S2) 5 Normal Extension (L3) 4 Good Ankle/Foot Strength Ankle and Foot Manual Muscle Testing Right Dorsiflexion (L4) 5 Normal Plantarflexion (S1) 5 Normal Left Dorsiflexion (L4) 5 Normal Plantarflexion (S1) 5 Normal Comments PF seated Self-Care/Home Management Treatment Education Other Education 15 min: edu re: footwear and different shoe options with wider toe box and less cushion than hokas as pt feels unstable with them. edu on importance of wide toe box and that best to wear what is most comfortable for her feet Physical Therapy Assessment Rehab Potential Rehabilitation Good Potential Evaluation Complexity Number of Personal 3 or More Factors/ Comorbidities Number of Body 4 or More Systems Impaired Clinical Evolving Presentation at Evaluation Impairments Impairments Activity Tolerance,Balance,Functional Activities, Functional Mobility,Gait,Pain,Posture,ROM,Soft Tissue Mobility,Strength Goals strength Short Term Goal (STG Pt will demonstrate independence w/HEP by being able to ) perform with no more than min cues. STG Duration 01/03 Senior Living Goal (LTG) Pt will score at least 4+/5 on all BLE MMT and at least 3/5 LPM to show improved strength to allow pt to return to all active lifestyle without issues. LTG Duration 02/19 yoga Endoscope Technician Goal (LTG) Pt will be able to return to stretching and yoga exercises w/o pain in RLE LTG Duration 02/19 activities Short Term Goal (STG Pt will be able to do IR, ER and flex ROM w/o inc pain ) STG Duration 01/18 Endoscope Technician Goal (LTG) pt will be able to lay on R side w/o inc pain LTG Duration 02/19 Assessment Summary Assessment Pt presents w/RLE pain mostly in lat thigh but occasionally goes down lower leg. She has improved since initial injury but still can get pains when laying on R side, twisting quickly especially towards IR, full stretching ROM especially into flex, ER and IR . She does have some pelvis dysfunction along w/dec hip ROM and would benefit from skilled PT to address these issues. Physical Therapy Plan Frequency and Duration Frequency of 2x/Week Treatment Duration of 12 treatment (weeks) Plan of Care Start 11/23/24 Date Plan of Care End 02/21/25 Date Therapeutic Interventions Therapeutic Balance Training,Gait Training,Home Exercise Program, Interventions Joint Mobilizations,Manual Therapy,Neuromuscular Re- education,Patient/Caregiver Education,Self-Care/Home Management,Soft Tissue Mobilization,Taping,Therapeutic Activities,Therapeutic Exercises Modalities Cold Pack/Ice Massage,Electric Stimulation,Hot Packs Next Visit Focus/Plan Next Note Type Treatment Note Next Visit Plan review HEP exercises, pelvis alignment work, hip mobs, gentle STM to LEs Plan of Care Dates Plan of Care Start Date 11/23/24 Plan of Care End Date 02/21/25 Electronically Signed by: Keila Martini, PT 11/23/24 0938 If you are in agreement with this Plan of Care, please return a signed and dated copy. I have reviewed this Plan of Care and certify that the skilled therapy services above are required to meet the patient?s needs. Physician Signature Date Printed Name and Credentials Clinical Instructor Signature Printed Name and Credentials
--- NOTE | 2024-11-29 16:31 | PT.OTN ---
Current Diagnoses Unspecified disorder of synovium and tendon, right thigh (11/29/24) Physical Therapy Treatment Note PT OP: Lower Back/Lower Extremity Start: 11/16/24 09:16 Freq: Status: Active Protocol: Document 11/29/24 13:50 [facility] (Rec: 11/29/24 16:31 [facility] [id number]) Out-Patient Physical Therapy Visit Information Visit Information Visit Type Treatment Note Visit Start Time 13:50 Visit Stop Time 14:30 Visit Number 2 Number of BASS GUITAR TEACHER Visits 0 Progress Note Due 12/23/24 OP-PT Subjective Patient Comments Patient Comments crankiness through knee still. in R. Stairs are difficult Therapeutic Exercises Supine Exercises bridge Supine Exercise Name SL Side bilateral Reps/Minutes 6 ea Comments control stretches Supine Exercise Name 1. ITB R2. piriformis R 3. pinky B Reps/Minutes 1. 30sec 2. 30 sec x2 3. 45 sec ea Sitting Exercises hip abd Side bilateral Equipment Used maroon band Reps/Minutes 1 min Comments cues posture Standing Exercises marches Standing Exercise core engaged Name Side bilateral Equipment Used green band Reps/Minutes 10 Comments hand on mat SL Standing Exercise very mini squat Name Side bilateral Reps/Minutes 15 sit to stand Side bilateral Equipment Used blue band Reps/Minutes 15 Comments min cues control and feet apart Manual Therapy Treatment Consent Patient gave verbal Yes consent for manual treatment Soft Tissue Mobilization glute Body Location R lat glute, ITB Mobilization Type Rolling Body Position Hooklying Comments w/IR Joint Mobilizations Hip Comments R free the ball IR and ER c/r Physical Therapy Assessment Goals strength Short Term Goal (STG Pt will demonstrate independence w/HEP by being able to ) perform with no more than min cues. STG Duration 01/03 Telecommunication Lines Repairer Goal (LTG) Pt will score at least 4+/5 on all BLE MMT and at least 3/5 LPM to show improved strength to allow pt to return to all active lifestyle without issues. LTG Duration 02/19 yoga Telecommunication Lines Repairer Goal (LTG) Pt will be able to return to stretching and yoga exercises w/o pain in RLE LTG Duration 02/19 activities Short Term Goal (STG Pt will be able to do IR, ER and flex ROM w/o inc pain ) STG Duration 01/18 Mcfp Goal (LTG) pt will be able to lay on R side w/o inc pain LTG Duration 02/19 Assessment Summary Assessment Pt did well with exercises w/cues but did need some reminders of exercises. She had much improved ROM of R hip w/manual Physical Therapy Plan Frequency and Duration Frequency of 2x/Week Treatment Duration of 12 treatment (weeks) Plan of Care Start 11/23/24 Date Plan of Care End 02/21/25 Date Next Visit Focus/Plan Next Note Type Treatment Note Next Visit Plan hip and pelvis alignment work, manual STM; quick review of exercises, work on core strength
--- NOTE | 2024-12-01 14:34 | PT.OTN ---
Current Diagnoses Unspecified disorder of synovium and tendon, right thigh (12/01/24) Physical Therapy Treatment Note PT OP: Lower Back/Lower Extremity Start: 11/16/24 09:16 Freq: Status: Active Protocol: Document 12/01/24 13:51 AB (Rec: 12/01/24 14:33 AB [id number]) Out-Patient Physical Therapy Visit Information Visit Information Visit Type Treatment Note Visit Note Visit [email or web address] Access Code: [email or web address] Visit Start Time 13:52 Visit Stop Time 14:31 Visit Number 3 Number of FUSE ASSEMBLER Visits 1 Progress Note Due 12/23/24 OP-PT Subjective Patient Comments Patient Comments Patient reports no change since last session. Patient reports having no pain unless she moves wrong, which causes 6-8/10 pain, turning in car to scan for traffic caused this pain today. Therapeutic Exercises Supine Exercises abdominal bracing with LE extension Reps/Minutes X 10 each LE alternating Comments verbal cues to brace as LE moves away from core, self tactile cues at ASIS stretches Supine Exercise Name 1.piriformis R 2. pinky B HEP Reps/Minutes 1.R 60 sec X 2 2. X 1 Mod pinky B 60 sec with knee flexion X 10 Comments Verbal cues Sidelying Exercises reverse clamshell Side right Reps/Minutes X 15 R LE Comments Verbal cues Standing Exercises sit to stand Side bilateral Equipment Used blue band Reps/Minutes X 10 Comments self tactile cues for hip hinge Manual Therapy Treatment Consent Patient gave verbal Yes consent for manual treatment Soft Tissue Mobilization glute Comments R glute/piriformis rolling, friction, moderate, sidelying Manual Techniques MET for R AI L PI and pubic shotgun Reps/Duration 6 X 6 sec each [facility] Physical Therapy Assessment Goals strength Short Term Goal (STG Pt will demonstrate independence w/HEP by being able to ) perform with no more than min cues. STG Duration 01/03 Residential Goal (LTG) Pt will score at least 4+/5 on all BLE MMT and at least 3/5 LPM to show improved strength to allow pt to return to all active lifestyle without issues. LTG Duration 02/19 yoga Residential Goal (LTG) Pt will be able to return to stretching and yoga exercises w/o pain in RLE LTG Duration 02/19 activities Short Term Goal (STG Pt will be able to do IR, ER and flex ROM w/o inc pain ) STG Duration 10/30 Shipfitter Goal (LTG) pt will be able to lay on R side w/o inc pain LTG Duration 02/19 Assessment Summary Assessment Patient reports legs feel more stable end of session post Manual stretches and MET. Physical Therapy Plan Frequency and Duration Frequency of 2x/Week Treatment Duration of 12 treatment (weeks) Plan of Care Start 11/23/24 Date Plan of Care End 02/21/25 Date Next Visit Focus/Plan Next Note Type Treatment Note Next Visit Plan hip and pelvis alignment work, manual STM; quick review of exercises, work on core strength
--- NOTE | 2024-12-21 11:29 | PT-OP ANOTE ---
Pt reports sciatica had L leg this past weekend. She has a call into Dr. Moreno. Very tender into L buttocks and that sends pain down leg. Using tennis ball in buttocks. Instructed on ice and heat and using her gentle stretches and to schedule PT
--- NOTE | 2024-12-27 14:34 | PT.OPPOC ---
Physical, Occupational & Speech Therapy At [facility] Current Diagnoses Unspecified disorder of synovium and tendon, right thigh (12/27/24) Pain in left leg (12/27/24) Visit Care Team Role Provider Type Keila Moreno MD Family Provider Physician Primary Care Provider Specialty: Family Practice Address: [address] [place] [address], [id number] Email: [email or web address] Ronald Yanes MD Attending Provider Physician Referring Provider Specialty: Orthopedics Orthopedic Surgery Address: [address] [place] [address], [phone] Fax: Email: [email or web address] Plan Of Care PT OP: Lower Back/Lower Extremity Start: 11/16/24 09:16 Freq: Status: Active Protocol: Document 12/27/24 10:08 [facility] (Rec: 12/27/24 12:35 [facility] [id number]) Out-Patient Physical Therapy Visit Information Visit Information Visit Type Re-Evaluation Visit Start Time 10:50 Visit Stop Time 11:30 Visit Number 4 Number of TECHNICAL BUSINESS ANALYST Visits 0 Progress Note Due 01/26/25 OP-PT Subjective Patient Comments Patient Comments Pain in inc when in [place] when L leg got sore in lower leg and she stretched and did her exercises. when she layed on bed, L leg ended up hurting and was entire leg. Now it is more lower left leg. She can now lay on L leg and lower leg the worst. Couldn't lift LUE overhead d/t pain but better. in standing if turns slightly L has pain. She has to sit down after a few min of standing. has been doing what PT suggested on phone. Patient Reported Worse Progress Lumbar Spine Range of Motion Lumbar Spine Active Percentage Flexion 50 Extension 50 Rotation Left 50 Rotation Right 75 Lateral Flexion Left 25 Lateral Flexion 75 Right Comments pain L SB and only rotation in standing but not sitting as tested above Special Tests Lumbar Spine Special Tests slr Test Results neg B Slump Test Results R calf stretch> L Comments L calf w/ext sit Hip Strength Hip Manual Muscle Testing Right Flexion (L2) 4- Good- Abduction 4 Good Adduction 4+ Good+ External Rotation 4- Good- Internal Rotation 4+ Good+ Left Flexion (L2) 4 Good Abduction 3+ Fair+ Adduction 4 Good External Rotation 4- Good- Internal Rotation 4 Good Comments pain abd Knee Strength Knee Manual Muscle Testing Right Flexion (S2) 5 Normal Extension (L3) 5 Normal Left Flexion (S2) 4 Good Extension (L3) 5 Normal Ankle/Foot Strength Ankle and Foot Manual Muscle Testing Right Dorsiflexion (L4) 5 Normal Plantarflexion (S1) 5 Normal Left Dorsiflexion (L4) 5 Normal Plantarflexion (S1) 5 Normal Comments PF seated Therapeutic Exercises Sitting Exercises stretch Sitting Exercise piriformis Name Side bilateral Reps/Minutes 30 sec Comments edu not to use strap Therapeutic Activity Therapeutic Activity log roll Reps/Minutes 8 min Comments 6 reps w/cues for log roll in and out of bed Manual Therapy Treatment Consent Patient gave verbal Yes consent for manual treatment Soft Tissue Mobilization low back Body Location L ES & QL Mobilization Type Rolling Intensity/Depth Moderate Body Position Sidelying glute Body Location L Mobilization Type Rolling Intensity/Depth Moderate Body Position Sidelying Joint Mobilizations lumbar Comments 1. s/l distraction L5-s1, L4-5 c/r post dep 2. s/l R transverse w/ant elevation c/r 3. seated upglide L L5 and downglide R L4 c/r innominate Joint L abd c/r Body Position Sidelying Hip Comments L inf med abd c/r Hot Pack/Cold Pack Treatment Cold Pack Location LS and superior glutes Patient Position Sitting Physical Therapy Assessment Goals strength Short Term Goal (STG Pt will demonstrate independence w/HEP by being able to ) perform with no more than min cues. STG Duration 01/27 Residential Goal (LTG) Pt will score at least 4+/5 on all BLE MMT and at least 3/5 LPM to show improved strength to allow pt to return to all active lifestyle without issues. LTG Duration 01/20 yoga Residential Goal (LTG) Pt will be able to return to stretching and yoga exercises w/o pain in RLE 12/27-L leg pain limted her LTG Duration 02/19 activities Short Term Goal (STG Pt will be able to do IR, ER and flex ROM w/o inc pain ) B 12/27more pain L>R STG Duration 01/27 Car Conditioner Goal (LTG) pt will be able to lay on R side w/o inc pain 12/27-slowly improving LTG Duration 03/27 Assessment Summary Assessment Pt had flare up of back symptoms w/sleep on different bed that caused pain down LLE instead of R. She has been since using FWW and limited in her gait and activity tolerance and slowly able to do more. D/t this , pt is worse since IE. She had improved rotation after manual today though and less pain w/bed transfers after log roll teaching. Pt benefit from PT to work on radiating symptoms in BLEs and improve strength to return to her typical active lifestyle. Physical Therapy Plan Frequency and Duration Frequency of 2x/Week Treatment Duration of 12 treatment (weeks) Plan of Care Start 12/27/24 Date Plan of Care End 03/27/25 Date Therapeutic Interventions Therapeutic Balance Training,Gait Training,Home Exercise Program, Interventions Joint Mobilizations,Manual Therapy,Neuromuscular Re- education,Patient/Caregiver Education,Self-Care/Home Management,Soft Tissue Mobilization,Taping,Therapeutic Activities,Therapeutic Exercises Modalities Cold Pack/Ice Massage,Electric Stimulation,Hot Packs Next Visit Focus/Plan Next Note Type Treatment Note Next Visit Plan hip and pelvis alignment work, manual STM; quick review of exercises, work on core strength Plan of Care Dates Plan of Care Start Date 12/27/24 Plan of Care End Date 03/27/25 Electronically Signed by: Keila Martini, PT 12/27/24 3005 If you are in agreement with this Plan of Care, please return a signed and dated copy. I have reviewed this Plan of Care and certify that the skilled therapy services above are required to meet the patient?s needs. Physician Signature Date Printed Name and Credentials Clinical Instructor Signature Printed Name and Credentials
--- NOTE | 2025-01-03 14:37 | PT.OTN ---
Current Diagnoses Unspecified disorder of synovium and tendon, right thigh (01/03/25) Pain in left leg (01/03/25) Physical Therapy Treatment Note PT OP: Lower Back/Lower Extremity Start: 11/16/24 09:16 Freq: Status: Active Protocol: Document 01/03/25 13:54 [facility] (Rec: 01/03/25 14:37 [facility] [id number]) Out-Patient Physical Therapy Visit Information Visit Information Visit Start Time 13:50 Visit Stop Time 14:30 Visit Number 5 Number of IT NETWORK ENGINEER Visits 0 Progress Note Due 01/26/25 OP-PT Subjective Patient Comments Patient Comments Pt reports she has been doing her exercises. The racquet ball against the wall and L glute cont to be sore. she had trouble sleeping. [place] good after last session but felt it again the next day when she got up to go to the bathroom. Has been intermittent w/use of walker Therapeutic Exercises Supine Exercises abdominal bracing with LE extension Side bilateral Reps/Minutes 6 ea Comments min cues bracing of core stretches Supine Exercise Name 1.ITB with strap 2. pinky test Side left Reps/Minutes 30 sec Comments inc time for set up and cues for position Sidelying Exercises reverse clamshell Sidelying Exercise clamshell then reverse clamshell Name Side bilateral Reps/Minutes 10 Comments Verbal cues core and comfortable range Sitting Exercises stretch Sitting Exercise piriformis Name Side bilateral Reps/Minutes 30 sec Comments edu not to use strap hip abd Side bilateral Equipment Used maroon band Reps/Minutes 1 min Standing Exercises marches Standing Exercise core engaged cues Name Side bilateral Reps/Minutes 6 sit to stand Side bilateral Reps/Minutes X 10 Comments self tactile cues for hip hinge-noted some calf pull Manual Therapy Treatment Consent Patient gave verbal Yes consent for manual treatment Joint Mobilizations lumbar Comments 1. PA L L4 and 5 w/flex/ext 2. L4-L5, L5-S1 distraction s/l c/r Self-Care/Home Management Treatment Education Other Education 15 min: edu of disc and sciatic n anatomy. use of images and verbal information, edu to pt re: starting PT then following up with doctor if not improving then further imaging and possibly seeing sports and spine doctor for consideration of injections or further eval Physical Therapy Assessment Goals strength Short Term Goal (STG Pt will demonstrate independence w/HEP by being able to ) perform with no more than min cues. STG Duration 01/27 Register Repairer Goal (LTG) Pt will score at least 4+/5 on all BLE MMT and at least 3/5 LPM to show improved strength to allow pt to return to all active lifestyle without issues. LTG Duration 01/20 yoga Mcfp Goal (LTG) Pt will be able to return to stretching and yoga exercises w/o pain in RLE 12/27-L leg pain limted her LTG Duration 02/19 activities Short Term Goal (STG Pt will be able to do IR, ER and flex ROM w/o inc pain ) B 12/27more pain L>R STG Duration 01/27 Register Repairer Goal (LTG) pt will be able to lay on R side w/o inc pain 12/27-slowly improving LTG Duration 03/27 Assessment Summary Assessment Pt had dec LLE symptoms after treatment today. Some exercises including sit to stands and standing marches. Physical Therapy Plan Frequency and Duration Frequency of 2x/Week Treatment Duration of 12 treatment (weeks) Plan of Care Start 12/27/24 Date Plan of Care End 03/27/25 Date Next Visit Focus/Plan Next Note Type Treatment Note Next Visit Plan hip and pelvis alignment work, manual STM; quick review of exercises, work on core strength
--- NOTE | 2025-01-09 18:08 | PT.OTN ---
Current Diagnoses Unspecified disorder of synovium and tendon, right thigh (01/09/25) Pain in left leg (01/09/25) Physical Therapy Treatment Note PT OP: Lower Back/Lower Extremity Start: 11/16/24 09:16 Freq: Status: Active Protocol: Document 01/09/25 17:17 AB (Rec: 01/09/25 18:07 AB [id number]) Out-Patient Physical Therapy Visit Information Visit Information Visit Type Re-Evaluation Visit Note Visit [email or web address] Access Code: [email or web address] Visit Start Time 17:19 Visit Stop Time 18:00 Visit Number 6 Number of POLITICAL SCIENCE INSTRUCTOR Visits 1 Progress Note Due 01/26/25 OP-PT Subjective Patient Comments Patient Comments Patient into session without walker. Patient reports this is the first time to be out without the walker. Therapeutic Exercises Supine Exercises abdominal bracing with LE extension Side bilateral Reps/Minutes 8 ea Comments verbal cues to brace as LE moves away from core stretches Supine Exercise Name 2. Mod Fabio Side bilateral Reps/Minutes 60sec with AROM knee flexion X 10 Comments verbal and tactile cues for knee flexion Sidelying Exercises reverse clamshell Sidelying Exercise clamshell then reverse clamshell Name Side bilateral Reps/Minutes 10 Comments Verbal cues core and comfortable range Sitting Exercises stretch Sitting Exercise piriformis Name Side bilateral Reps/Minutes 60 sec Comments pre MET post STM hooklying this ession Manual Therapy Treatment Consent Patient gave verbal Yes consent for manual treatment Soft Tissue Mobilization low back Body Location lumbar paraspinals Mobilization Type Cross-Friction,Sustained Pressure Intensity/Depth Moderate Body Position Prone glute Body Location L Mobilization Type Cross-Friction,Rolling Intensity/Depth Moderate Body Position Sidelying Manual Techniques MET for R AI L PI and pubic shotgun Reps/Duration 6 X 6 sec each [facility] Physical Therapy Assessment Goals strength Short Term Goal (STG Pt will demonstrate independence w/HEP by being able to ) perform with no more than min cues. STG Duration 01/27 Usp Goal (LTG) Pt will score at least 4+/5 on all BLE MMT and at least 3/5 LPM to show improved strength to allow pt to return to all active lifestyle without issues. LTG Duration 01/20 yoga Clearance Diver Goal (LTG) Pt will be able to return to stretching and yoga exercises w/o pain in RLE 12/27-L leg pain limted her LTG Duration 12/1 activities Short Term Goal (STG Pt will be able to do IR, ER and flex ROM w/o inc pain ) B 12/27more pain L>R STG Duration 01/27 Clearance Diver Goal (LTG) pt will be able to lay on R side w/o inc pain 12/27-slowly improving LTG Duration 03/27 Assessment Summary Assessment Patient reports having no pain end of session, reports feeling more balanced. Physical Therapy Plan Frequency and Duration Frequency of 2x/Week Treatment Duration of 12 treatment (weeks) Plan of Care Start 12/27/24 Date Plan of Care End 03/27/25 Date Next Visit Focus/Plan Next Note Type Treatment Note Next Visit Plan hip and pelvis alignment work, manual STM; quick review of exercises, work on core strength
--- NOTE | 2025-01-18 10:44 | PT.OTN ---
Current Diagnoses Unspecified disorder of synovium and tendon, right thigh (01/18/25) Pain in left leg (01/18/25) Physical Therapy Treatment Note PT OP: Lower Back/Lower Extremity Start: 11/16/24 09:16 Freq: Status: Active Protocol: Document 01/18/25 09:02 AB (Rec: 01/18/25 09:50 AB [id number]) Out-Patient Physical Therapy Visit Information Visit Information Visit Type Treatment Note Visit Note Visit [email or web address] Access Code: [email or web address] Visit Start Time 09:04 Visit Stop Time 09:48 Visit Number 7 Number of MATERIAL YARD CLERK Visits 2 Progress Note Due 01/26/25 OP-PT Subjective Patient Comments Patient Comments Patient reports she was sore last night, but felt better when she got up today. Patient attributes this to doing more/different activities to get ready for trip, is leaving with RV today after this session. Reports pain was L LE from butt to foot. With slump test feels stiffness L lateral calf LE post MET which resolved pain start of session L LE. Therapeutic Exercises Supine Exercises abdominal bracing with LE extension Side bilateral Reps/Minutes 5 ea then X 2 each LE Comments verbal cues to brace as LE moves away from core stretches Supine Exercise Name 2. Mod Fabio Side bilateral Reps/Minutes 60sec with AROM knee flexion X 10 Comments inc cues for opp knee to chest Standing Exercises B heel raise Reps/Minutes X 10 X on CLIFFORD Comments VC for position on CLIFFORD and to lower heels slowly calf stretches Standing Exercise 1. Gastroc 2 Soleus Name Reps/Minutes 60 sec each LE each stretch then AROM stepping X 10 Comments verbal cues Other Exercises self MET Other Exercise Name pubic shot gun and MET for R AI L PI. Reps/Minutes 6 X 6 sec each Comments verbal cues, reports symptoms gone with walking Manual Therapy Treatment Consent Patient gave verbal Yes consent for manual treatment Soft Tissue Mobilization L calf Mobilization Type Cross-Friction Intensity/Depth Moderate Body Position Sidelying Comments with AROM PF and DF Physical Therapy Assessment Goals strength Short Term Goal (STG Pt will demonstrate independence w/HEP by being able to ) perform with no more than min cues. STG Duration 01/27 Long-Term Goal (LTG) Pt will score at least 4+/5 on all BLE MMT and at least 3/5 LPM to show improved strength to allow pt to return to all active lifestyle without issues. LTG Duration 01/20 yoga Audit Control Clerk Goal (LTG) Pt will be able to return to stretching and yoga exercises w/o pain in RLE 12/27-L leg pain limted her LTG Duration 02/19 activities Short Term Goal (STG Pt will be able to do IR, ER and flex ROM w/o inc pain ) B 12/27more pain L>R STG Duration 01/27 Long-Term Goal (LTG) pt will be able to lay on R side w/o inc pain 12/27-slowly improving LTG Duration 03/27 Assessment Summary Assessment Patient reports no pain L LE post self MET this session . Patient required increased VC for opp knee to chest with Mod Fabio stretch this session. Physical Therapy Plan Frequency and Duration Frequency of 2x/Week Treatment Duration of 12 treatment (weeks) Plan of Care Start 12/27/24 Date Plan of Care End 03/27/25 Date Next Visit Focus/Plan Next Note Type Treatment Note Next Visit Plan hip and pelvis alignment work, manual STM; quick review of exercises, work on core strength
--- NOTE | 2025-01-24 18:39 | PT.OPPN ---
Current Diagnoses Unspecified disorder of synovium and tendon, right thigh (01/24/25) Pain in left leg (01/24/25) Physical Therapy Progress Note PT OP: Lower Back/Lower Extremity Start: 11/16/24 09:16 Freq: Status: Active Protocol: Document 01/24/25 14:37 [facility] (Rec: 01/24/25 16:20 [facility] [id number]) Out-Patient Physical Therapy Visit Information Visit Information Visit Type Progress Note Visit Note Visit [email or web address] Access Code: [email or web address] Visit Start Time 14:36 Visit Stop Time 15:16 Visit Number 8 Number of NAIL FEEDER Visits 0 Progress Note Due 02/23/25 OP-PT Subjective Patient Comments Patient Comments Pt reprots left leg has occ mm aching at calf. R leg has hurt some. has one exercise that hurts (clamshell) in R hip Hip Strength Hip Manual Muscle Testing Right Flexion (L2) 4 Good Extension (S1) 4- Good- Abduction 4 Good Adduction 4+ Good+ External Rotation 4 Good Internal Rotation 4+ Good+ Left Flexion (L2) 4 Good Extension (S1) 4- Good- Abduction 4 Good Adduction 4+ Good+ External Rotation 4 Good Internal Rotation 4+ Good+ Comments pain abd Knee Strength Knee Manual Muscle Testing Right Flexion (S2) 5 Normal Extension (L3) 5 Normal Left Flexion (S2) 5 Normal Extension (L3) 5 Normal Ankle/Foot Strength Ankle and Foot Manual Muscle Testing Right Dorsiflexion (L4) 5 Normal Plantarflexion (S1) 5 Normal Left Dorsiflexion (L4) 5 Normal Plantarflexion (S1) 5 Normal Comments PF seated Therapeutic Exercises Supine Exercises stretches Supine Exercise Name cross body leg straight stretch Side right Reps/Minutes [id number] Comments cues dec range and only for feel of stretch Sidelying Exercises clamshell Side bilateral Reps/Minutes 15 Comments hand on hip; cues no roll reverse clamshell Sidelying Exercise clamshell then reverse clamshell Name Side bilateral Reps/Minutes 10 Comments Verbal cues core and comfortable range Manual Therapy Treatment Consent Patient gave verbal Yes consent for manual treatment Soft Tissue Mobilization glute Body Location L lat glute and piriformis Mobilization Type Rolling Intensity/Depth Moderate Body Position Hooklying Comments w/ER Joint Mobilizations Hip Comments R inf glide, free the ball ER c/r Physical Therapy Assessment Goals strength Short Term Goal (STG Pt will demonstrate independence w/HEP by being able to ) perform with no more than min cues. STG Duration achieved 01/24 Group Home Goal (LTG) Pt will score at least 4+/5 on all BLE MMT and at least 3/5 LPM to show improved strength to allow pt to return to all active lifestyle without issues. 01/24-improving LTG Duration 01/20 yoga Book Repairer Goal (LTG) Pt will be able to return to stretching and yoga exercises w/o pain in RLE 12/27-L leg pain limted her 01/24-hasn't started yet LTG Duration 02/19 activities Short Term Goal (STG Pt will be able to do IR, ER and flex ROM w/o inc pain ) B 12/27more pain L>R 01/24-mild flex restriction R and IR and eR STG Duration 01/27 Book Repairer Goal (LTG) pt will be able to lay on R side w/o inc pain 12/27-slowly improving 01/24-20 min then hurts LTG Duration 03/27 Assessment Summary Assessment Pt making good progress w/PT with decreased pain and improved function. no longer using walker and has been returning to more activity slowly. Pain still occ in L calf and R hip/leg. She does still have limited ROM of R hip likely contributing to her pain. Cont PT for strength, balance, gait and functional mobility. Physical Therapy Plan Frequency and Duration Frequency of 2x/Week Treatment Duration of 12 treatment (weeks) Plan of Care Start 12/27/24 Date Plan of Care End 03/27/25 Date Next Visit Focus/Plan Next Note Type Treatment Note Next Visit Plan hip and pelvis alignment work, manual STM; quick review of exercises if needed, work on core strength
--- NOTE | 2025-01-26 14:28 | PT.OTN ---
Current Diagnoses Unspecified disorder of synovium and tendon, right thigh (01/26/25) Pain in left leg (01/26/25) Physical Therapy Treatment Note PT OP: Lower Back/Lower Extremity Start: 11/16/24 09:16 Freq: Status: Active Protocol: Document 01/26/25 12:59 AB (Rec: 01/26/25 13:47 AB [id number]) Out-Patient Physical Therapy Visit Information Visit Information Visit Type Treatment Note Visit Note Visit [email or web address] Access Code: [email or web address] Visit Start Time 13:01 Visit Stop Time 13:47 Visit Number 9 Number of SPORTS ACTIVITIES FOUL JUDGE Visits 1 Progress Note Due 02/23/25 OP-PT Subjective Patient Comments Patient Comments Patient reports post previous session she is feeling pretty good. Patient reports she feels stiff when she stands up when she sits. Patient rates pain 0/10 start of session. Therapeutic Exercises Supine Exercises abdominal bracing with LE extension Side bilateral Reps/Minutes 5 ea Comments verbal cues to brace as LE moves away from core stretches Supine Exercise Name Mod Fabio Reps/Minutes 60 sec each LE, Comments Pt reports stiffness ant R hip Sitting Exercises Rhythmic stablization Sitting Exercise 1. seated, 2. standing 3. on thai ball Name Reps/Minutes 6 min Comments verbal cues Standing Exercises Pallof press Side bilateral Resistance level 2 orange band Reps/Minutes X 15 X 2 each side Comments verbal cues glute med isometric Reps/Minutes 60 sec each LE Comments Verbal and visual cues marches Standing Exercise core engaged cues, Name Side bilateral Resistance level 3 band at feet Reps/Minutes X 15 Comments added opp UE swing. Manual Therapy Treatment Joint Mobilizations Hip Grade IV Reps/Duration X 10 X 3 Comments R inf glide, Physical Therapy Assessment Goals strength Short Term Goal (STG Pt will demonstrate independence w/HEP by being able to ) perform with no more than min cues. STG Duration achieved 01/24 Usp Goal (LTG) Pt will score at least 4+/5 on all BLE MMT and at least 3/5 LPM to show improved strength to allow pt to return to all active lifestyle without issues. 01/24-improving LTG Duration 01/20 yoga Usp Goal (LTG) Pt will be able to return to stretching and yoga exercises w/o pain in RLE 12/27-L leg pain limted her 01/24-hasn't started yet LTG Duration 02/19 activities Short Term Goal (STG Pt will be able to do IR, ER and flex ROM w/o inc pain ) B 12/27more pain L>R 01/24-mild flex restriction R and IR and eR STG Duration 01/27 Usp Goal (LTG) pt will be able to lay on R side w/o inc pain 12/27-slowly improving 01/24-20 min then hurts LTG Duration 03/27 Assessment Summary Assessment Patient reports having No pain, and feeling more connected. Physical Therapy Plan Frequency and Duration Frequency of 2x/Week Treatment Duration of 12 treatment (weeks) Plan of Care Start 12/27/24 Date Plan of Care End 03/27/25 Date Next Visit Focus/Plan Next Note Type Treatment Note Next Visit Plan hip and pelvis alignment work, manual STM; quick review of exercises if needed, work on core strength
--- NOTE | 2025-01-31 16:15 | PT.OTN ---
Current Diagnoses Unspecified disorder of synovium and tendon, right thigh (01/31/25) Pain in left leg (01/31/25) Physical Therapy Treatment Note PT OP: Lower Back/Lower Extremity Start: 11/16/24 09:16 Freq: Status: Active Protocol: Document 01/31/25 13:44 AB (Rec: 01/31/25 14:33 AB [id number]) Out-Patient Physical Therapy Visit Information Visit Information Visit Type Treatment Note Visit Note Visit [email or web address] Access Code: [email or web address] Visit Start Time 13:48 Visit Stop Time 14:33 Visit Number 10 Number of CLUB CAR ATTENDANT Visits 2 Progress Note Due 02/23/25 OP-PT Subjective Patient Comments Patient Comments Patient reports increased stiffness post seated for increased time, and R glute continues to be uncomfortable when using the ball for self STM. Therapeutic Exercises Supine Exercises abdominal bracing with LE extension Side bilateral Reps/Minutes 5 ea Comments verbal cues to brace as LE moves away from core stretches Supine Exercise Name 1. piriformis knee opp shoulder Reps/Minutes 60 sec X 2 Comments verbal and tactile cues Sidelying Exercises reverse clamshell Sidelying Exercise clamshell then reverse clamshell Name Side bilateral Reps/Minutes 10 Comments Verbal cues core and comfortable range Sitting Exercises HIP IR AROM Side bilateral Reps/Minutes X 15 Comments Verbal cues Standing Exercises lift Reps/Minutes X 10 Comments use of dowel, verbal and visual cues standing hip ext Standing Exercise leaning on raised mat Name Reps/Minutes X 15 each LE Comments verbal and visual cues Pallof press Side bilateral Resistance Level 3 [place] band Reps/Minutes X 15 X 2 each side Comments verbal cues Manual Therapy Treatment Consent Patient gave verbal Yes consent for manual treatment Soft Tissue Mobilization R LE Body Location lateral hip, HS to calf Mobilization Type Cross-Friction,Rolling,Strumming Intensity/Depth Moderate Body Position Sidelying Comments with knee flex/ext and with hip IR and hooklying Manual Techniques MET for R AI L PI and pubic shotgun Reps/Duration 6 X 6 sec each tech Physical Therapy Assessment Goals strength Short Term Goal (STG Pt will demonstrate independence w/HEP by being able to ) perform with no more than min cues. STG Duration achieved 11/ Upkeep Mechanic Goal (LTG) Pt will score at least 4+/5 on all BLE MMT and at least 3/5 LPM to show improved strength to allow pt to return to all active lifestyle without issues. 01/24-improving LTG Duration 01/20 yoga Upkeep Mechanic Goal (LTG) Pt will be able to return to stretching and yoga exercises w/o pain in RLE 12/27-L leg pain limted her 01/24-hasn't started yet LTG Duration 02/19 activities Short Term Goal (STG Pt will be able to do IR, ER and flex ROM w/o inc pain ) B 12/27more pain L>R 01/24-mild flex restriction R and IR and eR STG Duration 01/27 Upkeep Mechanic Goal (LTG) pt will be able to lay on R side w/o inc pain 12/27-slowly improving 01/24-20 min then hurts LTG Duration 03/27 Assessment Summary Assessment Patient reports she feels like she worked out end of session. Physical Therapy Plan Frequency and Duration Frequency of 2x/Week Treatment Duration of 12 treatment (weeks) Plan of Care Start 12/27/24 Date Plan of Care End 03/27/25 Date Next Visit Focus/Plan Next Note Type Treatment Note Next Visit Plan hip and pelvis alignment work, manual STM; quick review of exercises if needed, work on core strength
--- NOTE | 2025-02-02 12:24 | PT.OTN ---
Current Diagnoses Unspecified disorder of synovium and tendon, right thigh (02/02/25) Pain in left leg (02/02/25) Physical Therapy Treatment Note PT OP: Lower Back/Lower Extremity Start: 11/16/24 09:16 Freq: Status: Active Protocol: Document 02/02/25 11:32 AB (Rec: 02/02/25 12:24 AB [id number]) Out-Patient Physical Therapy Visit Information Visit Information Visit Type Treatment Note Visit Note Visit [email or web address] Access Code: [email or web address] Visit Start Time 11:35 Visit Stop Time 12:20 Visit Number 11 Number of BUSINESS SYSTEMS MANAGER Visits 3 Progress Note Due 02/23/25 OP-PT Subjective Patient Comments Patient Comments Patient reports she is the same. Patient reports she hasn't returned to walking yet. Therapeutic Exercises Supine Exercises DL isomet hip flex DF Side bilateral Reps/Minutes 30 sec Comments verbal cues abdominal bracing with LE extension Side bilateral Reps/Minutes 10 ea Comments verbal cues to brace as LE moves away from core stretches Supine Exercise Name 1. piriformis knee opp shoulder 2 Mod Fabio stretch Side bilateral Reps/Minutes 60 sec X1 each ex each LE Comments verbal and tactile cues Standing Exercises lift Standing Exercise 1/2 lift Name Reps/Minutes X 10 Comments use of dowel, verbal and visual cues glute med isometric Reps/Minutes 60 sec each LE Comments Verbal and visual cues Manual Therapy Treatment Consent Patient gave verbal Yes consent for manual treatment Soft Tissue Mobilization R LE Body Location lateral hip, HS to calf Mobilization Type Cross-Friction,Rolling,Strumming Intensity/Depth Moderate Body Position Sidelying Comments cupping with knee flex/ext and with hip IR/ER and hooklying Manual Techniques MET for R AI L PI and pubic shotgun Reps/Duration 6 X 6 sec each [facility] Physical Therapy Assessment Goals strength Short Term Goal (STG Pt will demonstrate independence w/HEP by being able to ) perform with no more than min cues. STG Duration achieved 01/24 Air Carrier Operations Inspector Goal (LTG) Pt will score at least 4+/5 on all BLE MMT and at least 3/5 LPM to show improved strength to allow pt to return to all active lifestyle without issues. 01/24-improving LTG Duration 01/20 yoga Air Carrier Operations Inspector Goal (LTG) Pt will be able to return to stretching and yoga exercises w/o pain in RLE 12/27-L leg pain limted her 01/24-hasn't started yet LTG Duration 02/19 activities Short Term Goal (STG Pt will be able to do IR, ER and flex ROM w/o inc pain ) B 12/27more pain L>R 01/24-mild flex restriction R and IR and eR STG Duration 01/27 Air Carrier Operations Inspector Goal (LTG) pt will be able to lay on R side w/o inc pain 12/27-slowly improving 01/24-20 min then hurts LTG Duration 03/27 Assessment Summary Assessment Patient reports feeling no pain end of session, reports feeling balanced. Pt continues to require dowel and cues for hip hinge with half lift w/o weight. Physical Therapy Plan Frequency and Duration Frequency of 2x/Week Treatment Duration of 12 treatment (weeks) Plan of Care Start 12/27/24 Date Plan of Care End 03/27/25 Date Next Visit Focus/Plan Next Note Type Treatment Note Next Visit Plan hip and pelvis alignment work, manual STM; quick review of exercises if needed, work on core strength
--- NOTE | 2025-02-05 15:48 | PT.OTN ---
Current Diagnoses Unspecified disorder of synovium and tendon, right thigh (02/05/25) Pain in left leg (02/05/25) Physical Therapy Treatment Note PT OP: Lower Back/Lower Extremity Start: 11/16/24 09:16 Freq: Status: Active Protocol: Document 02/05/25 14:36 [facility] (Rec: 02/05/25 15:18 [facility] [id number]) Out-Patient Physical Therapy Visit Information Visit Information Visit Type Treatment Note Visit Note Visit [email or web address] Access Code: [email or web address] Visit Start Time 14:37 Visit Stop Time 15:17 Visit Number 12 Number of STITCH BONDER MACHINE OPERATOR HELPER Visits 0 Progress Note Due 02/23/25 OP-PT Subjective Patient Comments Patient Comments pt reports hasn't had much pain in legs. Hasn't been using walker or shower chair in a few weeks. mostly R hip ROM still limited and is being careful when doing exercises. Therapeutic Exercises Standing Exercises sidestep Side bilateral Resistance orange band Reps/Minutes 10ft x2 Comments cues posture and control of 2nd LE lift Standing Exercise RDL Name Side bilateral Reps/Minutes 10 Comments cues relaxed knees and hip hinge standing hip ext Standing Exercise leaning on raised mat Name Side bilateral Resistance orange band at ankles Reps/Minutes X 10 each LE Comments cues control motion Manual Therapy Treatment Consent Patient gave verbal Yes consent for manual treatment Soft Tissue Mobilization circumfrential Body Location R thigh Mobilization Type Myofascial Release Comments w/flex and hip ER R LE Body Location R ITB cupping w/IR glute Body Location R lat glute Comments w/IR Physical Therapy Assessment Goals strength Short Term Goal (STG Pt will demonstrate independence w/HEP by being able to ) perform with no more than min cues. STG Duration achieved 01/24 Data Entry Technician Goal (LTG) Pt will score at least 4+/5 on all BLE MMT and at least 3/5 LPM to show improved strength to allow pt to return to all active lifestyle without issues. 01/24-improving LTG Duration 01/20 yoga Data Entry Technician Goal (LTG) Pt will be able to return to stretching and yoga exercises w/o pain in RLE 12/27-L leg pain limted her 01/24-hasn't started yet LTG Duration 02/19 activities Short Term Goal (STG Pt will be able to do IR, ER and flex ROM w/o inc pain ) B 12/27more pain L>R 01/24-mild flex restriction R and IR and eR STG Duration 01/27 Fdc Goal (LTG) pt will be able to lay on R side w/o inc pain 12/27-slowly improving 01/24-20 min then hurts LTG Duration 03/27 Assessment Summary Assessment Pt had much inc ROM into hip flex, IR and add after manual with much dec pain. Physical Therapy Plan Frequency and Duration Frequency of 2x/Week Treatment Duration of 12 treatment (weeks) Plan of Care Start 12/27/24 Date Plan of Care End 03/27/25 Date Next Visit Focus/Plan Next Note Type Treatment Note Next Visit Plan hip and pelvis alignment work, manual STM; work on core strength
--- NOTE | 2025-02-09 14:32 | PT.OTN ---
Current Diagnoses Unspecified disorder of synovium and tendon, right thigh (02/09/25) Pain in left leg (02/09/25) Physical Therapy Treatment Note PT OP: Lower Back/Lower Extremity Start: 11/16/24 09:16 Freq: Status: Active Protocol: Document 02/09/25 13:48 AB (Rec: 02/09/25 14:32 AB [id number]) Out-Patient Physical Therapy Visit Information Visit Information Visit Type Treatment Note Visit Note Visit [email or web address] Access Code: [email or web address] Visit Start Time 13:49 Visit Stop Time 14:30 Visit Number 13 Number of DATASTAGE ARCHITECT Visits 1 Progress Note Due 02/23/25 OP-PT Subjective Patient Comments Patient Comments Rhianna reports she is much better since the cupping. Rhianna reports when sitting for a while it still takes a while to get going R LE feels stiff. Patient reports she is taking her brief walks, hasn't tried a mile yet. Therapeutic Exercises Supine Exercises DL isomet hip flex DF Side bilateral Reps/Minutes 30 sec bilateral then 30 sec single leg each Comments verbal cues abdominal bracing with LE extension Supine Exercise Name from 90/90 position Side bilateral Reps/Minutes X 10 and X 6 alternating UE Comments Verbal/tactile cues cues for LE position bridge Supine Exercise Name SL Side bilateral Reps/Minutes 6 ea Comments VC to keep pelvis level Sidelying Exercises reverse clamshell Sidelying Exercise clamshell then reverse clamshell Name Side bilateral Reps/Minutes 15 w/o band X 15 with level 2 band Comments Verbal cues core and comfortable range Standing Exercises lift Standing Exercise single leg to chair seat Name Side bilateral Reps/Minutes 12 Comments cues relaxed knees and hip hinge Pallof press Side bilateral Resistance Level 4 royal blue Reps/Minutes X 15 each side Comments verbal cues glute med isometric Reps/Minutes 60 sec each LE Comments Verbal and visual cues Manual Therapy Treatment Consent Patient gave verbal Yes consent for manual treatment Soft Tissue Mobilization R LE Body Location R ITB cupping w/IR Mobilization Type Cross-Friction,Instrument Assisted Intensity/Depth Moderate Body Position Hooklying Comments also with abd add Physical Therapy Assessment Goals strength Short Term Goal (STG Pt will demonstrate independence w/HEP by being able to ) perform with no more than min cues. STG Duration achieved 01/24 Leasing Director Goal (LTG) Pt will score at least 4+/5 on all BLE MMT and at least 3/5 LPM to show improved strength to allow pt to return to all active lifestyle without issues. 01/24-improving LTG Duration 01/20 yoga Leasing Director Goal (LTG) Pt will be able to return to stretching and yoga exercises w/o pain in RLE 12/27-L leg pain limted her 01/24-hasn't started yet LTG Duration 02/19 activities Short Term Goal (STG Pt will be able to do IR, ER and flex ROM w/o inc pain ) B 12/27more pain L>R 01/24-mild flex restriction R and IR and eR STG Duration 01/27 Leasing Director Goal (LTG) pt will be able to lay on R side w/o inc pain 12/27-slowly improving 01/24-20 min then hurts LTG Duration 03/27 Physical Therapy Plan Frequency and Duration Frequency of 2x/Week Treatment Duration of 12 treatment (weeks) Plan of Care Start 12/27/24 Date Plan of Care End 03/27/25 Date Next Visit Focus/Plan Next Note Type Treatment Note Next Visit Plan hip and pelvis alignment work, manual STM; work on core strength
--- NOTE | 2025-02-19 15:18 | PT.OPPN ---
Current Diagnoses Unspecified disorder of synovium and tendon, right thigh (02/19/25) Pain in left leg (02/19/25) Physical Therapy Progress Note PT OP: Lower Back/Lower Extremity Start: 11/16/24 09:16 Freq: Status: Active Protocol: Document 02/19/25 14:38 [facility] (Rec: 02/19/25 15:18 [facility] [id number]) Out-Patient Physical Therapy Visit Information Visit Information Visit Type Progress Note Visit Start Time 14:37 Visit Stop Time 15:15 Visit Number 14 Number of INDUSTRIAL MACHINE OPERATOR Visits 0 Progress Note Due 03/21/25 OP-PT Subjective Patient Comments Patient Comments walked 1 mile about 5x since last seen with out issue. Getting over cold now. When she sits for any period of time >20 min then B quads really ache when stand up. cupping helps a lot Hip Strength Hip Manual Muscle Testing Right Flexion (L2) 4 Good Extension (S1) 4 Good Abduction 4 Good Adduction 4 Good External Rotation 4 Good Internal Rotation 5 Normal Comments discomfort R hip flex Left Flexion (L2) 4 Good Extension (S1) 4 Good Abduction 4 Good Adduction 4+ Good+ External Rotation 4 Good Internal Rotation 4+ Good+ Comments pain abd Therapeutic Exercises Supine Exercises abdominal bracing with LE extension Supine Exercise Name 1. w/opp LE on ground 2. from 90/90 positio Side bilateral Equipment Used hand under back as needed for cues Reps/Minutes 10 ea Comments cues breathing and no back arch, dec range from 90/90 position bridge Supine Exercise Name SL w/opp LE in knee flex position Side bilateral Comments cues ot keep pelvis level Standing Exercises Pallof press Standing Exercise in mini squat Name Side bilateral Resistance Level 4 royal blue Reps/Minutes X8 each side Comments verbal cues mini squat position Manual Therapy Treatment Consent Patient gave verbal Yes consent for manual treatment Soft Tissue Mobilization circumfrential Body Location R thigh Mobilization Type Myofascial Release Comments w/flex and hip ER R LE Body Location R ITB cupping w/IR Mobilization Type Cross-Friction,Instrument Assisted Intensity/Depth Moderate Body Position Hooklying Comments also with abd add Joint Mobilizations innominate Comments R IR c/r supine Hip Comments free the ball IR R c/r, R inf glide c/r Physical Therapy Assessment Goals strength Short Term Goal (STG Pt will demonstrate independence w/HEP by being able to ) perform with no more than min cues. STG Duration achieved 11/5 Correction Goal (LTG) Pt will score at least 4+/5 on all BLE MMT and at least 3/5 LPM to show improved strength to allow pt to return to all active lifestyle without issues. 01/24-improving 02/19-improving LTG Duration 03/22 yoga Skiver Box Toe Goal (LTG) Pt will be able to return to stretching and yoga exercises w/o pain in RLE 12/27-L leg pain limted her 01/24-hasn't started yet 02/19-doing PT stretching exercises LTG Duration 03/22 activities Short Term Goal (STG Pt will be able to do IR, ER and flex ROM w/o inc pain ) B 12/27more pain L>R 01/24-mild flex restriction R and IR and eR 02/19-no pain flex or ER, IR mild pain into knee STG Duration 01/27 Skiver Box Toe Goal (LTG) pt will be able to lay on R side w/o inc pain 12/27-slowly improving 01/24-20 min then hurts 02/19-no issues LTG Duration achieved 02/19 Assessment Summary Assessment pt cont to make progress with PT but does have dec core and hip strength still w/occasional pain in B thighs mostly notable when getting up from sitting >20 min. she is slowly progressing back towards activity. cont PT for strength, balance and core stability to dec pain and return to typical function. Physical Therapy Plan Frequency and Duration Frequency of 2x/Week Treatment Duration of 12 treatment (weeks) Plan of Care Start 12/27/24 Date Plan of Care End 03/27/25 Date Therapeutic Interventions Therapeutic Balance Training,Gait Training,Home Exercise Program, Interventions Joint Mobilizations,Manual Therapy,Neuromuscular Re- education,Patient/Caregiver Education,Self-Care/Home Management,Soft Tissue Mobilization,Taping,Therapeutic Activities,Therapeutic Exercises Modalities Cold Pack/Ice Massage,Electric Stimulation,Hot Packs Next Visit Focus/Plan Next Note Type Treatment Note Next Visit Plan hip and pelvis alignment work, manual STM; work on core strength
--- NOTE | 2025-02-22 12:18 | PT.OTN ---
Current Diagnoses Unspecified disorder of synovium and tendon, right thigh (02/22/25) Pain in left leg (02/22/25) Physical Therapy Treatment Note PT OP: Lower Back/Lower Extremity Start: 11/16/24 09:16 Freq: Status: Active Protocol: Document 02/22/25 11:42 SP (Rec: 02/22/25 12:33 SP [id number]) Out-Patient Physical Therapy Visit Information Visit Information Visit Type Treatment Note Visit Start Time 11:42 Visit Stop Time 12:18 Visit Number 15 Number of BODY BUILDER APPRENTICE Visits 1 Progress Note Due 03/21/25 OP-PT Subjective Patient Comments Patient Comments Pt stated lateral R leg still taught if can do some cupping. Is walking further now, goal to return to 3 miles 3x/wk. Therapeutic Exercises Supine Exercises stretches Supine Exercise Name 1. piriformis knee opp shoulder 2. Mod Fabio stretch 4 . Fig 4 Side bilateral Reps/Minutes 60 sec X1 each ex each LE Comments verbal and tactile cues Sitting Exercises stretch Sitting Exercise piriformis Name Side bilateral Reps/Minutes 60 sec Comments end tx cool down Standing Exercises Triple Extension Standing Exercise added to HEP wtih HO Name Side bilateral Equipment Used Planked on wall with heel raise Reps/Minutes 3sec hold x5 reps, 2 sets Comments cued glut engagement squat Standing Exercise 1. air squat moderate range 2. split squat- added to Name HEP with HO Equipment Used 1. front mirror 2. Rail support Reps/Minutes 10 reps each side Comments cued hip hinge, knee and hip flexion, like reach item on floort near heel Therapeutic Activity Therapeutic Activity on/off floor Name chair vs no UE support Reps/Minutes 3 Comments able to do 1/2 kneel better after split squat and manual today, to support return to class. Cues for hip hinge Manual Therapy Treatment Consent Patient gave verbal Yes consent for manual treatment Soft Tissue Mobilization R LE Body Location R ITB cupping w/hipIR & flex / *ext knee Mobilization Type Cross-Friction,Instrument Assisted Intensity/Depth Moderate Body Position Hooklying Comments discussed can buy silicone cups if feel benefits outside PT. DIscussed thick cream better glide (cerve home ok) Physical Therapy Assessment Goals strength Short Term Goal (STG Pt will demonstrate independence w/HEP by being able to ) perform with no more than min cues. STG Duration achieved 11/5 Penitentiary Goal (LTG) Pt will score at least 4+/5 on all BLE MMT and at least 3/5 LPM to show improved strength to allow pt to return to all active lifestyle without issues. 01/24-improving 02/19-improving LTG Duration 03/22 yoga Project Admin Goal (LTG) Pt will be able to return to stretching and yoga exercises w/o pain in RLE 12/27-L leg pain limted her 01/24-hasn't started yet 02/19-doing PT stretching exercises LTG Duration 03/22 activities Short Term Goal (STG Pt will be able to do IR, ER and flex ROM w/o inc pain ) B 12/27more pain L>R 01/24-mild flex restriction R and IR and eR 02/19-no pain flex or ER, IR mild pain into knee STG Duration 01/27 Penitentiary Goal (LTG) pt will be able to lay on R side w/o inc pain 12/27-slowly improving 01/24-20 min then hurts 02/19-no issues LTG Duration achieved 02/19 Assessment Summary Assessment Pt good response to cupping manual, modified suction and more cream as needed. Pt able to progress more active ther ex today for hip and knee ROM and return to motion squat, split squats as performs in class to get on floor or pickle maker items needed in yard. Cued for proper alignment and form, provided HO. Physical Therapy Plan Frequency and Duration Frequency of 2x/Week Treatment Duration of 12 treatment (weeks) Plan of Care Start 12/27/24 Date Plan of Care End 03/27/25 Date Therapeutic Interventions Therapeutic Balance Training,Gait Training,Home Exercise Program, Interventions Joint Mobilizations,Manual Therapy,Neuromuscular Re- education,Patient/Caregiver Education,Self-Care/Home Management,Soft Tissue Mobilization,Taping,Therapeutic Activities,Therapeutic Exercises Modalities Cold Pack/Ice Massage,Electric Stimulation,Hot Packs Next Visit Focus/Plan Next Note Type Treatment Note Next Visit Plan Recheck added air squat, split squat, triple ext last tx. Discuss if need more thatn scheduled appts with return to ADLs and HEP and classes. POC: hip and pelvis alignment work, manual STM; work on core strength
--- NOTE | 2025-03-01 13:45 | PT.OTN ---
Current Diagnoses Unspecified disorder of synovium and tendon, right thigh (03/01/25) Pain in left leg (03/01/25) Physical Therapy Treatment Note PT OP: Lower Back/Lower Extremity Start: 11/16/24 09:16 Freq: Status: Active Protocol: Document 03/01/25 13:05 SP (Rec: 03/01/25 13:22 SP [id number]) Out-Patient Physical Therapy Visit Information Visit Information Visit Type Treatment Note Visit Note Pt 5 min late for appt. Visit Start Time 13:02 Visit Stop Time 13:45 Visit Number 16 Number of REPORT CLERK Visits 2 Progress Note Due 03/21/25 OP-PT Subjective Patient Comments Patient Comments Pt 5 min late for appt. She reports experienced soreness over R lateral thigh and lower leg. Cardio Equipment Recumbent Bicycle Duration (Minutes) 4 Resistance 13 Seat Position 2 Other 44 RPMs Therapeutic Exercises Supine Exercises bridge Supine Exercise Name SL w/opp LE in knee flex position Side bilateral Comments cues ot keep pelvis level stretches Supine Exercise Name 1. pirif (knee opp shld) 2. Mod [place] 4. Fig 4 5. SKTC 6. ITB 7. HS Side bilateral Equipment Used ITB and HS with strap on foot Reps/Minutes 60 sec X1 each Comments verbal and tactile cues as needed for set up & form, not push into pain Standing Exercises Triple Extension Standing Exercise reviewed (forgot HEP HO before left) Name Side bilateral Equipment Used Planked on wall with heel raise Reps/Minutes 3sec hold x5 reps, 3 sets Comments cued glut engagement squat Standing Exercise 1. air squat box tap 2. split squat reviewed Name Resistance 16 box behind Equipment Used 1. 2# DB 2. Rail support Reps/Minutes 10 reps each (4 reps L ft front split squat less due to crepitus pain) Comments cued hip hinge, knee and hip flexion, like reach item on floort near heel Physical Therapy Assessment Goals strength Short Term Goal (STG Pt will demonstrate independence w/HEP by being able to ) perform with no more than min cues. STG Duration achieved 01/24 Shelter Goal (LTG) Pt will score at least 4+/5 on all BLE MMT and at least 3/5 LPM to show improved strength to allow pt to return to all active lifestyle without issues. 01/24-improving 02/19-improving LTG Duration 03/22 yoga Shelter Goal (LTG) Pt will be able to return to stretching and yoga exercises w/o pain in RLE 12/27-L leg pain limted her 01/24-hasn't started yet 02/19-doing PT stretching exercises LTG Duration 03/22 activities Short Term Goal (STG Pt will be able to do IR, ER and flex ROM w/o inc pain ) B 12/27more pain L>R 01/24-mild flex restriction R and IR and eR 02/19-no pain flex or ER, IR mild pain into knee STG Duration 01/27 Hydroelectric Machinery Mechanic Goal (LTG) pt will be able to lay on R side w/o inc pain 12/27-slowly improving 01/24-20 min then hurts 02/19-no issues LTG Duration achieved 02/19 Assessment Summary Assessment Pt reported less tightness post stretching review. Continued resisted squat taps lower surface 16 box with 2# DB and incline plank triple extension, forgot HO before left so emailed the image, put HO in pt HEP folder. Pt reports good muscle tiring with 5 reps and additional sets tolerated 2-3. Encouraged continue at home for carryover strengthening. Physical Therapy Plan Frequency and Duration Frequency of 2x/Week Treatment Duration of 12 treatment (weeks) Plan of Care Start 12/27/24 Date Plan of Care End 03/27/25 Date Therapeutic Interventions Therapeutic Balance Training,Gait Training,Home Exercise Program, Interventions Joint Mobilizations,Manual Therapy,Neuromuscular Re- education,Patient/Caregiver Education,Self-Care/Home Management,Soft Tissue Mobilization,Taping,Therapeutic Activities,Therapeutic Exercises Modalities Cold Pack/Ice Massage,Electric Stimulation,Hot Packs Next Visit Focus/Plan Next Note Type Treatment Note Next Visit Plan Recheck review 2# DB air squat, AROM split squat, wall triple ext. Discuss if need more thatn scheduled appts with return to ADLs and HEP and classes. POC: hip and pelvis alignment work, manual STM; work on core strength
--- NOTE | 2025-03-06 15:21 | PT.OPDS ---
Current Diagnoses Unspecified disorder of synovium and tendon, right thigh (03/06/25) Pain in left leg (03/06/25) Visit Care Team Role Provider Type Keila Moreno MD Family Provider Physician Primary Care Provider Specialty: Family Practice Address: [address] [place] [address], [place], [address] Email: [email or web address] Ronald Yanes MD Attending Provider Physician Referring Provider Specialty: Orthopedics Orthopedic Surgery Address: [address] [place] [address], [id number] Email: [email or web address] Visit Number Visit Number 17 Discharge Summary PT OP: Lower Back/Lower Extremity Start: 11/16/24 09:16 Freq: Status: Active Protocol: Document 03/06/25 14:34 [facility] (Rec: 03/06/25 15:20 [facility] [id number]) Out-Patient Physical Therapy Visit Information Visit Information Visit Type Discharge Summary Visit Start Time 14:34 Visit Stop Time 15:14 Visit Number 17 Number of PRODUCTION OPERATIONS INSPECTOR Visits 0 OP-PT Subjective Patient Comments Patient Comments Hasn't been able to do the walking d/t weather and [employer] activities. She sees Dr. Moreno later in Mar. Lat thigh cont to be painful and it is affecting her balance. did functional fitness class and it went ok. Manual Therapy Treatment Consent Patient gave verbal Yes consent for manual treatment Soft Tissue Mobilization abdomen Comments ligament of cleyet w/hip IR glute Comments obturator foramen w/bladder fascial release sacrotubous and sacrospinous ligament Joint Mobilizations coccyx Comments glide to L in seated w/wt shift and R n glide-dec slump tension innominate Comments inf and post pubis w/hip add Physical Therapy Assessment Goals strength Short Term Goal (STG Pt will demonstrate independence w/HEP by being able to ) perform with no more than min cues. STG Duration achieved 01/24 [facility] Goal (LTG) Pt will score at least 4+/5 on all BLE MMT and at least 3/5 LPM to show improved strength to allow pt to return to all active lifestyle without issues. 01/24-improving 02/19-improving LTG Duration 03/22 yoga [facility] Goal (LTG) Pt will be able to return to stretching and yoga exercises w/o pain in RLE 12/27-L leg pain limted her 01/24-hasn't started yet 02/19-doing PT stretching exercises 03/06- doing PT stretches but hasn't tried yoga class LTG Duration 03/22 activities Short Term Goal (STG Pt will be able to do IR, ER and flex ROM w/o inc pain ) B 12/27more pain L>R 01/24-mild flex restriction R and IR and eR 02/19-no pain flex or ER, IR mild pain into knee 03/06-improved after manual STG Duration 01/27 Piece Dye Worker Goal (LTG) pt will be able to lay on R side w/o inc pain 12/27-slowly improving 01/24-20 min then hurts 02/19-no issues LTG Duration achieved 02/19 Assessment Summary Assessment At this time, pt has mostly met goals so plan for DC to HEP at this time and exercise classes. She had improved add and IR after manual. Since PT starting, she has improved strength, ROM and activity tolerance. DC to HEP at this time. Pt feels ready for DC Physical Therapy Plan Frequency and Duration Frequency of 2x/Week Treatment Duration of 12 treatment (weeks) Plan of Care Start 12/27/24 Date Plan of Care End 03/27/25 Date Therapeutic Interventions Therapeutic Balance Training,Gait Training,Home Exercise Program, Interventions Joint Mobilizations,Manual Therapy,Neuromuscular Re- education,Patient/Caregiver Education,Self-Care/Home Management,Soft Tissue Mobilization,Taping,Therapeutic Activities,Therapeutic Exercises Modalities Cold Pack/Ice Massage,Electric Stimulation,Hot Packs Discharge Physical Therapy Discharge Comments goals mostly met
== END 2025-03-07 10:49 | disposition home or self-care (01) ==
LOC: PHYS 14:30
PROVIDERS: Family Provider Family Medicine; PCP Family Medicine; Referring Provider Orthopaedic Surgery Adult Reconstructive Orthopaedic Surgery; Visit Provider Orthopaedic Surgery Adult Reconstructive Orthopaedic Surgery
DX: M67.951 Unspecified disorder of synovium and tendon, right thigh (principal); M79.605 Pain in left leg
CPT/HCPCS: 97110; 97140; 97162; 97164; 97530; 97535